=== PATIENT | female | born 1980 | race Caucasian/White ===

== ENCOUNTER 2020-07-24 10:47 | Emergency (ER) | payer MEDICAID, SELFPAY ==
[2020-07-24 10:54] VITALS: BP 125/75; BP 178/90; PULSE 85; PULSE 90; RESP 22; TEMP 36.8; O2SAT 98; BMI 65.0
--- NOTE | 2020-07-24 11:13 | ED.GENADULT ---
HPI - General Adult General Chief complaint: General Medical Stated complaint: ABD PAIN,HEADACHE Time Seen by Provider: 07/24/20 11:13 Source: patient and EMS Mode of arrival: EMS Limitations: no limitations History of Present Illness HPI narrative: patient c/o diarrhea and nausea since last night, no antibiotics, no food exposures, no sick contacts, c/o cramping constant aching pain as well, denies flatulence this AM Onset (ago): day(s) (last night) Location: abdomen Radiation: non-radiation Severity: moderate Quality: aching Pain Consistency: constant Relieving factors: none Exacerbating factors: none Associated symptoms: nausea/vomiting and other (diarrhea) Treatments prior to arrival: none Related Data Previous Rx's Medication Instructions Recorded dicyclomine 20 mg PO TID PRN #20 tab 07/24/20 ondansetron 4 mg PO Q8H PRN #20 tab 07/24/20 Allergies Allergy/AdvReac Type Severity Reaction Status Date / Time Penicillins [PENICILLINS] Allergy Severe HIVES Verified 07/24/20 11:25 aspirin [ASA] Allergy Intermediate HIVES Verified 07/24/20 11:25 azithromycin [AZITHROMYCIN] Allergy Intermediate ITCHING Verified 07/24/20 11:25 erythromycin base Allergy Intermediate HIVES Verified 07/24/20 11:25 [Erythromycin Base] lamotrigine [From Lamictal] Allergy Intermediate ITCHING Verified 07/24/20 11:25 levofloxacin [From LEVAQUIN] Allergy Intermediate HIVES Verified 07/24/20 11:25 oxycodone [From Percocet] Allergy Intermediate HIVES Verified 07/24/20 11:25 penicillin V Allergy Unknown Itching Verified 07/24/20 11:25 soap [SOAP] Allergy Unknown UNKNOWN Verified 07/24/20 11:25 RXN TO IVORY AND JERGEN'S SOAP Lamictal Allergy Unknown hives Uncoded 06/15/12 00:00 Oxycodone (5MG) Allergy Unknown Itching Uncoded 07/24/20 11:25 Penicillin Allergy Unknown hives Uncoded 06/15/12 00:00 Lactose AdvReac Unknown intolerance Uncoded 06/15/12 00:00 Review of Systems Review of Systems: Constitutional : No Weight loss, No Fever, No Chills ENT/Mouth : No sore throat, No Rhinorrhea Eyes: No Swelling, No Redness Cardiovascular : No Chest Pain, No SOB, NoEdema Respiratory : No Cough, No Sputum, No Wheezing Gastrointestinal : Positive Nausea, no Vomiting, positive Diarrhea, positive abdominal Pain, No Hematochezia, No Melena Genitourinary : No Dysuria, No Urinary Frequency, No Hematuria, No Urgency Musculoskeletal : No joint pain, No Myalgias, No Joint Swelling Skin : No Skin Lesions, No rash Neuro : No Weakness, No Numbness, No Dizziness, No Headache Psych : No Anxiety/Panic, No Depression Heme/Lymph: No Bruising, No Lymphadenopathy Endocrine : No Polyuria, No Polydipsia All other systems reviewed and are negative. [facility] Past Medical History Medical History (Updated 07/24/20 @ 14:32 by Radha Pak DO) Anxiety Asthma Bipolar 1 disorder Hernia Hypertension Manic depression Schizophrenia Social History Social History Alcohol intake: current Alcohol intake frequency: a few times a month Smoking Status: Current every day smoker Use of substances other than those prescribed or required for medical reasons: Yes Substance Use Type: Marijuana Advance Directives: No Advance Directives Information Provided: Yes Physical Exam Vital Signs and I&O and Narrative: Vital Signs and I&O: Vital Signs Temp 98.3 F 07/24/20 10:54 Pulse 85 07/24/20 10:54 Resp 22 H 07/24/20 10:54 BP 125/75 07/24/20 10:54 Pulse Ox 98 07/24/20 10:54 Intake & Output 07/23/20 07/24/20 07/24/20 18:59 06:59 18:59 Weight 161.297 kg Body Mass Index 65.0 Appearance: Alert. Oriented X3. No acute distress. Can I have pain medicine through the IV? Eyes: Pupils equal, round and reactive to light. ENT: Pharynx normal. Neck: Normal inspection. Neck supple. CVS: Normal heart rate and rhythm. Pulses normal. Respiratory: No respiratory distress. Breath sounds normal. Abdomen: Soft and obese, periumbilical ttp Skin: Skin warm and dry. Normal skin color. Normal skin turgor. Extremities: No lower extremity edema. No lower extremity edema. Neuro: Oriented X 3. No motor deficit. No sensory deficit. 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 She is upset she is not receiving IV narcotics, this is an inappropriate response to this, she is also demanding IV pain medications for her LLE that has no fracture of the bone - she is very demanding and attempting to bully the staff and myself, she is aware of the plan for UA, CT scan - normal pulse and BP do not support her reported degree of pain at this time Reevaluation(s) Reevaluation #1: no diarrhea while in ED< no acute findings, stable for DC Medical Decision Making MDM Narrative Medical decision making narrative: 39 yo female with multiple medical problems s/p hernia repair - here with diarrhea and pain, will need labs, CT scan for obstruction/infection, she is asking for pain medications through the IV does have a history of drug seeking tendencies while in the department, will give cleopatrafran and kody, dispo per results and findings Lab Data Result diagrams: 07/24/20 11:21 07/24/20 11:21 Labs: Lab Results 07/24/20 07/24/20 07/24/20 Range/Units 11:21 11:21 11:21 WBC 9.9 (4.8-10.8) X10*3/uL RBC 4.29 (4.20-5.50) X10*6/uL Hgb 11.9 L (12.0-16.0) g/dl Hct 38.0 (37-47) % MCV 88.6 (80-98) fL MCH 27.7 (27.0-33.0) pg MCHC 31.3 (31.0-35.0) g/dl RDW 16.4 H (11.0-16.0) % Plt Count 265 (160-400) X10*3/uL MPV 8.8 L (9.4-12.3) fL Immature Gran % (Auto) 0.5 H (0.0-0.4) % Neut % (Auto) 61.2 (45-73) % Lymph % (Auto) 29.0 (20-40) % [place] % (Auto) 6.4 (2-11) % Eos % (Auto) 2.4 (0-4) % Baso % (Auto) 0.5 (0-2) % Neut # (Auto) 6.1 (2.0-8.3) X10*3/uL Lymph # (Auto) 2.9 (1.2-4.9) X10*3/uL [place] # (Auto) 0.6 (0.1-1.2) X10*3/uL Eos # (Auto) 0.2 (0.0-0.4) X10*3/uL Baso # (Auto) 0.1 (0.0-0.2) X10*3/uL Abs Immat Gran (auto) 0.05 H (0.00-0.03) X10*3/uL Absolute Nucleated RBC 0.000 (0.0-0.012) X10*3/uL Nucleated RBC % (auto) 0.0 (0.0-0.2) /100WBC Hold Blue Top SEE NOTE Sodium 140 (135-145) mmol/L Potassium 3.8 (3.3-5.1) mmol/l Chloride 112 H (96-108) mmol/L Carbon Dioxide 20 L (22-29) mmol/L Anion Gap 12 (12-20) BUN 20 H (9-16) mg/dL Creatinine 0.77 (0.5-1.4) mg/dL Estim Creat Clear Calc 149.3 Estimated GFR > 60 Random Glucose 92 (60-115) mg/dL Calcium 8.3 L (8.4-10.2) mg/dL Magnesium 1.9 (1.6-2.6) mg/dL Total Bilirubin 0.2 (0.0-1.0) mg/dL Direct Bilirubin < 0.2 (0.0-0.5) mg/dL AST 10 (5-31) U/L ALT 16 (0-31) U/L Alkaline Phosphatase 64 (39-117) U/L Total Protein 6.9 (6.5-8.0) g/dL Albumin 3.6 (3.5-5.0) g/dL Lipase 49 (8-78) U/L Urine Color Urine Appearance Urine pH (5.0-8.0) Ur Specific [place] (1.005-1.025) Urine Protein (NEG-TRACE) MG/DL Urine Glucose (UA) (NEG) MG/DL Urine Ketones (NEG) MG/DL Urine Blood (NEG) Urine Nitrite (NEG) Ur Leukocyte Esterase (NEG) Urine RBC (0) /HPF Urine WBC (0-4) /HPF Ur Squamous Epith Cells /LPF Urine Bacteria /LPF Urine Mucus /LPF Urine Test (NEGATIVE) 07/24/20 Range/Units 12:31 WBC (4.8-10.8) X10*3/uL RBC (4.20-5.50) X10*6/uL Hgb (12.0-16.0) g/dl Hct (37-47) % MCV (80-98) fL MCH (27.0-33.0) pg MCHC (31.0-35.0) g/dl RDW (11.0-16.0) % Plt Count (160-400) X10*3/uL MPV (9.4-12.3) fL Immature Gran % (Auto) (0.0-0.4) % Neut % (Auto) (45-73) % Lymph % (Auto) (20-40) % [place] % (Auto) (2-11) % Eos % (Auto) (0-4) % Baso % (Auto) (0-2) % Neut # (Auto) (2.0-8.3) X10*3/uL Lymph # (Auto) (1.2-4.9) X10*3/uL [place] # (Auto) (0.1-1.2) X10*3/uL Eos # (Auto) (0.0-0.4) X10*3/uL Baso # (Auto) (0.0-0.2) X10*3/uL Abs Immat Gran (auto) (0.00-0.03) X10*3/uL Absolute Nucleated RBC (0.0-0.012) X10*3/uL Nucleated RBC % (auto) (0.0-0.2) /100WBC Hold Blue Top Sodium (135-145) mmol/L Potassium (3.3-5.1) mmol/l Chloride (96-108) mmol/L Carbon Dioxide (22-29) mmol/L Anion Gap (12-20) BUN (9-16) mg/dL Creatinine (0.5-1.4) mg/dL Estim Creat Clear Calc Estimated GFR Random Glucose (60-115) mg/dL Calcium (8.4-10.2) mg/dL Magnesium (1.6-2.6) mg/dL Total Bilirubin (0.0-1.0) mg/dL Direct Bilirubin (0.0-0.5) mg/dL AST (5-31) U/L ALT (0-31) U/L Alkaline Phosphatase (39-117) U/L Total Protein (6.5-8.0) g/dL Albumin (3.5-5.0) g/dL Lipase (8-78) U/L Urine Color YELLOW Urine Appearance HAZY Urine pH 6.0 (5.0-8.0) Ur Specific [place] 1.025 (1.005-1.025) Urine Protein NEG (NEG-TRACE) MG/DL Urine Glucose (UA) NEG (NEG) MG/DL Urine Ketones NEG (NEG) MG/DL Urine Blood 3+ H (NEG) Urine Nitrite NEG (NEG) Ur Leukocyte Esterase NEG (NEG) Urine RBC 1-4 (0) /HPF Urine WBC 0-2 (0-4) /HPF Ur Squamous Epith Cells 2+ /LPF Urine Bacteria TRACE /LPF Urine Mucus TRACE /LPF Urine Test NEGATIVE (NEGATIVE) Discharge Plan Discharge Clinical Impression: Abdominal pain Qualifiers: Abdominal location: generalized Qualified Code(s): R10.84 - Generalized abdominal pain Patient Disposition: Home, Self-Care Instructions: Abdominal Pain (ED) Additional Instructions: your blood work and CT scan showed no acute findings, your liver and spleen were slightly enlarged but blood work was stable, please follow up with your doctor Prescriptions: New ondansetron 4 mg tablet,disintegrating 4 mg PO Q8H PRN (Reason: nausea and vomiting) Qty: 20 RF: 0 dicyclomine 20 mg tablet 20 mg PO TID PRN (Reason: cramping) Qty: 20 RF: 0 Referrals: Physician,Unknown [Primary Care Provider] - 2 days (follow up with your family doctor if not better in 2 days)
--- NOTE | 2020-07-24 11:14 | CT_ITS ---
EXAMINATION: CT ABDOMEN AND PELVIS WITHOUT CONTRAST CLINICAL INFORMATION: Pain. COMPARISON: 03/13/2020 TECHNIQUE: Multidetector volumetric imaging was performed from the superior aspect of the liver through the pubic symphysis. Sagittal and coronal reformatted images were obtained on the technologist's workstation. This CT examination was performed using dose optimization techniques as appropriate, variously including the following: *Automated exposure control *Adjustment of mA and/or kV according to patient size (this includes techniques or standardized protocols for targeted exams where dose is matched to indication/reason for exam; i.e. extremities or head) *Use of iterative reconstruction technique DLP: 1623 mGy-cm. FINDINGS: LUNG BASES: The visualized lung bases are unremarkable. LIVER, GALLBLADDER, AND BILIARY TREE: Liver is enlarged spanning 22.7 cm craniocaudal. No focal hepatic lesion or biliary ductal dilatation is present. The gallbladder is unremarkable with no evidence of radiopaque gallstones, gallbladder wall thickening, or obvious pericholecystic inflammatory changes. PANCREAS: Unremarkable. SPLEEN: Spleen measures 16 cm craniocaudal. No focal lesions. ADRENAL GLANDS: Unremarkable. KIDNEYS AND URETERS: The kidneys are normal in size, shape, and attenuation. No hydronephrosis, hydroureter, or calculi seen. No perinephric stranding. BLADDER: Underdistended, limiting evaluation, without gross abnormality. GASTROINTESTINAL TRACT: Colonic diverticulosis without evidence of diverticulitis. The stomach is nondistended. No dilated small bowel loops are seen. No colonic wall thickening or pericolonic inflammatory changes. Appendix is normal. No ascites. No free air. ABDOMINAL WALL: Prior ventral abdominal wall hernia repair. Stranding in the anterior subcutaneous/soft tissues, probably related to postsurgical changes along the inferior aspect of the anterior abdominal wall in the area of previously noted hernia. There is mild subcutaneous edema in the abdominal wall. LYMPH NODES: No pathologically enlarged lymph nodes are seen. VASCULAR: Normal caliber aorta. PELVIC VISCERA: Anteverted uterus with IUD. No adnexal mass is seen. OSSEOUS STRUCTURES: No acute or suspicious osseous abnormality. IMPRESSION: 1. No acute findings identified in the abdomen or pelvis. 2. Hepatomegaly measuring 22.7 cm craniocaudal. Splenomegaly measuring 16 cm craniocaudal. 3. Colonic diverticulosis without diverticulitis.
[2020-07-24] MEDS: Dicyclomine HCl 10 MG CAPSULE PO (11:25)
--- NOTE | 2020-07-24 11:26 | PC.NURSE ---
PT MEDICATED PER ORDERS. REQUESTING IV TO BE PLACED AND GIVEN MORPHINE. EXPLAINED TO PT MD ORDERED PO MEDS AND SHOULD ATTEMPT TO SEE IF RELIEVES PAIN FIRST. PT AGREEABLE AND TOOK PO MEDS BUT STATING THEY WONT WORK .
[2020-07-24 11:27] LABS: MANUAL DIFF FLAG NO
[2020-07-24 11:32] LABS: Basophils Absolute Auto 0.1 X10*3/uL (0.0-0.2); Basophils Percent Auto 0.5 % (0-2); Eosinophils Absolute Auto 0.2 X10*3/uL (0.0-0.4); Eosinophils Percent Auto 2.4 % (0-4); Hemoglobin 11.9 g/dl (12.0-16.0); Imm Gran Abs Auto 0.05 X10*3/uL (0.00-0.03); Imm Gran Pct Auto 0.5 % (0.0-0.4); Lymphocytes Absolute Auto 2.9 X10*3/uL (1.2-4.9); Mean Corpuscular HGB Conc 31.3 g/dl (31.0-35.0); Mean Corpuscular Hemoglobin 27.7 pg (27.0-33.0); Mean Corpuscular Volume 88.6 fL (80-98); Mean Platelet Volume 8.8 fL (9.4-12.3); Monocytes Absolute Auto 0.6 X10*3/uL (0.1-1.2); Monocytes Percent Auto 6.4 % (2-11); Neutrophils Absolute Auto 6.1 X10*3/uL (2.0-8.3); Neutrophils Percent Auto 61.2 % (45-73); Platelet Count 265 X10*3/uL (160-400); Red Blood Count 4.29 X10*6/uL (4.20-5.50); Red Cell Distribution Width 16.4 % (11.0-16.0); White Blood Count 9.9 X10*3/uL (4.8-10.8)
[2020-07-24 11:58] LABS: Alanine Aminotransferase 16 U/L (0-31); Albumin Level 3.6 g/dL (3.5-5.0); Alkaline Phosphatase 64 U/L (39-117); Anion Gap 12 (12-20); Aspartate Amino Transferase 10 U/L (5-31); Bilirubin Direct < 0.2 mg/dL (0.0-0.5); Bilirubin Total 0.2 mg/dL (0.0-1.0); Blood Urea Nitrogen 20 mg/dL (9-16); Calcium 8.3 mg/dL (8.4-10.2); Carbon Dioxide 20 mmol/L (22-29); Chloride 112 mmol/L (96-108); Creatinine Clr Calc Pharmacy 149.3; Estimated Glomerular Filt Rate > 60; Glucose Random 92 mg/dL (60-115); Lipase 49 U/L (8-78); Magnesium 1.9 mg/dL (1.6-2.6); Potassium 3.8 mmol/l (3.3-5.1); Sodium 140 mmol/L (135-145); Total Protein 6.9 g/dL (6.5-8.0)
[2020-07-24 12:51] LABS: Glucose Urine UA NEG (NEG); Leukocyte Esterase Urine NEG (NEG); Nitrite Urine NEG (NEG); Specific Gravity - Urine 1.025 (1.005-1.025); Urine Blood 3+ (NEG); Urine Ketones NEG (NEG); Urine Protein NEG (NEG-TRACE)
[2020-07-24 12:52] LABS: Appearance Urine HAZY; Color Urine YELLOW
[2020-07-24 12:53] LABS: UPreg QC Valid YES; Urine Pregnancy NEGATIVE (NEGATIVE)
[2020-07-24 12:58] LABS: Bacteria Urine TRACE /LPF; Mucus Urine TRACE /LPF; Squamous Epithelial Cell Urine 2+ /LPF; WBC Urine 0-2 /HPF (0-4)
[2020-07-24 14:39] VITALS: BP 137/105; PULSE 78; RESP 18; TEMP 37.2; O2SAT 97
== END 2020-07-24 14:42 | disposition home or self-care (01) ==
PROVIDERS: Emergency Provider Emergency Medicine
DX: R10.84 Generalized abdominal pain (principal); R19.7 Diarrhea, unspecified; R11.0 Nausea; F17.200 Nicotine dependence, unspecified, uncomplicated; Z71.6 Tobacco abuse counseling
CPT/HCPCS: 36415; 74176; 80048; 80076; 81001; 81025; 83690; 83735; 85025; 99284

== ENCOUNTER 2020-07-31 15:24 | Emergency (ER) | payer MEDICAID, SELFPAY ==
[2020-07-31 16:28] VITALS: BP 144/95; PULSE 89; RESP 20; TEMP 37.8; BMI 61.2
[2020-07-31 17:12] LABS: Glucose Urine UA NEG (NEG); Leukocyte Esterase Urine NEG (NEG); Nitrite Urine NEG (NEG); Specific Gravity - Urine 1.025 (1.005-1.025); Urine Blood TRACE (NEG); Urine Ketones NEG (NEG); Urine Protein NEG (NEG-TRACE)
--- NOTE | 2020-07-31 17:28 | PC.NURSE ---
PT LEAVES THE WR X2 TO GO OUTSIDE TO SMOKE
[2020-07-31 17:33] LABS: Appearance Urine CLEAR; Color Urine YELLOW
[2020-07-31 17:44] LABS: RBC Urine 0-2 /HPF (0); Squamous Epithelial Cell Urine 4+ /LPF; WBC Urine 0-2 /HPF (0-4)
--- NOTE | 2020-07-31 18:29 | XR_ITS ---
EXAMINATION: XR CHEST CLINICAL INFORMATION: Cough. COMPARISON: Chest x-ray 03/13/2020 TECHNIQUE: 2 views of the chest were obtained. FINDINGS: Lungs are clear. No pulmonary vascular congestion. There is no pleural effusion. The heart size is normal. The cardiac and mediastinal contours are normal. There are multilevel degenerative changes of dorsal spine. There is inferior subluxation of humeral head relative to the glenoid of both shoulders. This is unchanged since prior chest x-ray. IMPRESSION: Unremarkable examination.
[2020-07-31 18:42] VITALS: RESP 18
[2020-07-31 19:06] LABS: MANUAL DIFF FLAG NO
[2020-07-31 19:07] LABS: Basophils Absolute Auto 0.1 X10*3/uL (0.0-0.2); Basophils Percent Auto 0.6 % (0-2); Eosinophils Absolute Auto 0.2 X10*3/uL (0.0-0.4); Hematocrit 41.4 % (37-47); Hemoglobin 13.2 g/dl (12.0-16.0); Imm Gran Abs Auto 0.02 X10*3/uL (0.00-0.03); Imm Gran Pct Auto 0.2 % (0.0-0.4); Lymphocytes Absolute Auto 3.4 X10*3/uL (1.2-4.9); Mean Corpuscular HGB Conc 31.9 g/dl (31.0-35.0); Mean Corpuscular Hemoglobin 27.7 pg (27.0-33.0); Mean Platelet Volume 8.3 fL (9.4-12.3); Monocytes Absolute Auto 0.7 X10*3/uL (0.1-1.2); Monocytes Percent Auto 7.7 % (2-11); Neutrophils Percent Auto 53.5 % (45-73); Platelet Count 247 X10*3/uL (160-400); Red Blood Count 4.76 X10*6/uL (4.20-5.50); Red Cell Distribution Width 16.5 % (11.0-16.0); White Blood Count 9.4 X10*3/uL (4.8-10.8)
[2020-07-31 19:34] LABS: Alanine Aminotransferase 15 U/L (0-31); Alkaline Phosphatase 76 U/L (39-117); Anion Gap 13 (12-20); Aspartate Amino Transferase 13 U/L (5-31); Bilirubin Total 0.4 mg/dL (0.0-1.0); Blood Urea Nitrogen 16 mg/dL (9-16); Calcium 8.6 mg/dL (8.4-10.2); Carbon Dioxide 20 mmol/L (22-29); Chloride 107 mmol/L (96-108); Creatinine Clr Calc Pharmacy 151.3; Estimated Glomerular Filt Rate > 60; Glucose Random 118 mg/dL (60-115); Potassium 3.8 mmol/l (3.3-5.1); Sodium 136 mmol/L (135-145); Total Protein 7.6 g/dL (6.5-8.0)
[2020-07-31] MEDS: Acetaminophen 325 MG TABLET 975 MG PO (19:37)
--- NOTE | 2020-07-31 20:18 | ED.GENADULT ---
HPI - General Adult General Chief complaint: General Medical Stated complaint: SHORTNESS OF BREATH Time Seen by Provider: 07/31/20 18:29 Source: patient Mode of arrival: ambulatory Limitations: no limitations History of Present Illness HPI narrative: Runny nose/cough/congestion for the past 2 days. Cousin with similar symptoms here for COVID testing which was negative yesterday. Onset (ago): day(s) (Two days) Severity: moderate Related Data Previous Rx's Medication Instructions Recorded dicyclomine 20 mg PO TID PRN #20 tab 07/24/20 ondansetron 4 mg PO Q8H PRN #20 tab 07/24/20 azithromycin [Zithromax Z-Johnie] 250 mg PO DAILY 5 Days #6 tab 07/31/20 prednisone 40 mg PO DAILY #10 tab 07/31/20 Allergies Allergy/AdvReac Type Severity Reaction Status Date / Time Penicillins [PENICILLINS] Allergy Severe HIVES Verified 07/24/20 11:25 aspirin [ASA] Allergy Intermediate HIVES Verified 07/24/20 11:25 azithromycin [AZITHROMYCIN] Allergy Intermediate ITCHING Verified 07/24/20 11:25 erythromycin base Allergy Intermediate HIVES Verified 07/24/20 11:25 [Erythromycin Base] lamotrigine [From Lamictal] Allergy Intermediate ITCHING Verified 07/24/20 11:25 levofloxacin [From LEVAQUIN] Allergy Intermediate HIVES Verified 07/24/20 11:25 oxycodone [From Percocet] Allergy Intermediate HIVES Verified 07/24/20 11:25 penicillin V Allergy Unknown Itching Verified 07/24/20 11:25 soap [SOAP] Allergy Unknown UNKNOWN Verified 07/24/20 11:25 RXN TO IVORY AND JERGEN'S SOAP Lamictal Allergy Unknown hives Uncoded 06/15/12 00:00 Oxycodone (5MG) Allergy Unknown Itching Uncoded 07/24/20 11:25 Penicillin Allergy Unknown hives Uncoded 06/15/12 00:00 Lactose AdvReac Unknown intolerance Uncoded 06/15/12 00:00 Review of Systems Review of Systems: Constitutional: No Weight loss, No Fever, No Chills, No Night Sweats, No Fatigue, No Malaise ENT/Mouth: No Hearing loss, No Ear Pain, No Nasal Congestion, No Sinus Pain, No Hoarseness, No sore throat, No Rhinorrhea, No Swallowing Difficulty Eyes: No Eye Pain, No Swelling, No Redness, No Foreign Body, No Discharge, No Vision Changes Cardiovascular: No Chest Pain, No SOB, No Dyspnea on Exertion, No Orthopnea, No Edema, No Palpitations Respiratory: + Cough, + Sputum, No Wheezing, No Smoke Exposure, No Dyspnea Gastrointestinal: No Nausea, No Vomiting, No Diarrhea, No Constipation, No abdominal Pain, No Hematochezia, No Melena Genitourinary: no irregular bleeding, No Dysuria, No Urinary Frequency, No Hematuria, No Urinary Incontinence, No Urgency, No Flank Pain, No Urinary Flow Changes, No Hesitancy Musculoskeletal: No joint pain, No Myalgias, No Joint Swelling Skin: No Skin Lesions, No rash Neuro: No Weakness, No Numbness, No Paresthesias, No Loss of Consciousness, No Dizziness, No Headache Psych: No Anxiety/Panic, No Depression, No SI/HI/AH/VH, No Social Issues, Heme/Lymph: No Bruising, No Bleeding,No Lymphadenopathy Endocrine: No Polyuria, No Polydipsia, No Temperature Intolerance [facility] Past Medical History Attestation statement: The following information was validated with the patient. Medical History (Updated 07/31/20 @ 20:28 by Temo Patel NP) Anxiety Asthma Bipolar 1 disorder Hernia Hypertension Manic depression Schizophrenia Social History Social History Alcohol intake: never Smoking Status: Current every day smoker Smoked in Last 30 Days: No Use of substances other than those prescribed or required for medical reasons: No Substance Use Type: Marijuana Advance Directives: No Advance Directives Information Provided: No Physical Exam Vital Signs: Vital Signs: Vital Signs Temp Pulse Resp BP 07/31/20 18:42 18 07/31/20 16:28 100.0 F 89 20 144/95 H Body Mass Index 61.2 Const: General: cooperative and healthy appearing; No acute distress or intoxicated appearing Nutritional Appearance: average body habitus Orientation/consciousness: patient oriented x3 HENMT: Head: Yes normal to inspection Ears: hearing grossly normal bilaterally Eyes: General: appearance normal, both eyes and all related structures Visual Norris: normal visual norris by confrontation Neck: Neck: Yes normal visual inspection, No positive Brudzinski's sign and No tender Thyroid: Thyroid normal Chest: Chest palpation & inspection: normal inspection of the chest Resp: Other: Dry bronchial cough Effort & Inspection: normal respiratory effort Cardio: Jugular venous distension: no JVD GI: Inspection: Yes normal to inspection Percussion: Yes normal to percussion Auscultation: normal bowel sounds : General: Yes no CVA tenderness Back/Spine/Pelvis: Back: no CVA tenderness Skin: General skin exam: no rashes or lesions noted Neuro: General: patient oriented x3 Extrem: General: Yes normal to inspection Medical Decision Making Lab Data Result diagrams: 07/31/20 19:07/31/20 19:01 Labs: Lab Results 07/31/20 07/31/20 07/31/20 Range/Units 17:02 19: 19:01 WBC 9.4 (4.8-10.8) X10*3/uL RBC 4.76 (4.20-5.50) X10*6/uL Hgb 13.2 (12.0-16.0) g/dl Hct 41.4 (37-47) % MCV 87.0 (80-98) fL MCH 27.7 (27.0-33.0) pg MCHC 31.9 (31.0-35.0) g/dl RDW 16.5 H (11.0-16.0) % Plt Count 247 (160-400) X10*3/uL MPV 8.3 L (9.4-12.3) fL Immature Gran % (Auto) 0.2 (0.0-0.4) % Neut % (Auto) 53.5 (45-73) % Lymph % (Auto) 36.0 (20-40) % [place] % (Auto) 7.7 (2-11) % Eos % (Auto) 2.0 (0-4) % Baso % (Auto) 0.6 (0-2) % Lymph # (Auto) 3.4 (1.2-4.9) X10*3/uL [place] # (Auto) 0.7 (0.1-1.2) X10*3/uL Eos # (Auto) 0.2 (0.0-0.4) X10*3/uL Baso # (Auto) 0.1 (0.0-0.2) X10*3/uL Abs Immat Gran (auto) 0.02 (0.00-0.03) X10*3/uL Absolute Neuts (auto) 5.0 (2.0-8.3) X10*3/uL Absolute Nucleated RBC 0.000 (0.0-0.012) X10*3/uL Nucleated RBC % (auto) 0.0 (0.0-0.2) /100WBC Sodium 136 (135-145) mmol/L Potassium 3.8 (3.3-5.1) mmol/l Chloride 107 (96-108) mmol/L Carbon Dioxide 20 L (22-29) mmol/L Anion Gap 13 (12-20) BUN 16 (9-16) mg/dL Creatinine 0.73 (0.5-1.4) mg/dL Estim Creat Clear Calc 151.3 Estimated GFR > 60 Random Glucose 118 H (60-115) mg/dL Calcium 8.6 (8.4-10.2) mg/dL Total Bilirubin 0.4 (0.0-1.0) mg/dL AST 13 (5-31) U/L ALT 15 (0-31) U/L Alkaline Phosphatase 76 (39-117) U/L Total Protein 7.6 (6.5-8.0) g/dL Albumin 4.0 (3.5-5.0) g/dL Urine Color YELLOW Urine Appearance CLEAR Urine pH 6.0 (5.0-8.0) Ur Specific [place] 1.025 (1.005-1.025) Urine Protein NEG (NEG-TRACE) MG/DL Urine Glucose (UA) NEG (NEG) MG/DL Urine Ketones NEG (NEG) MG/DL Urine Blood TRACE (NEG) Urine Nitrite NEG (NEG) Ur Leukocyte Esterase NEG (NEG) Urine RBC 0-2 (0) /HPF Urine WBC 0-2 (0-4) /HPF Ur Squamous Epith Cells 4+ /LPF Urine Bacteria NONE /LPF Discharge Plan Discharge Clinical Impression: Bronchitis Patient Disposition: Home, Self-Care Instructions: Acute Bronchitis (ED) Prescriptions: New prednisone 20 mg tablet 40 mg PO DAILY Qty: 10 RF: 0 azithromycin [Zithromax Z-Johnie] 250 mg tablet 250 mg PO DAILY 5 Days Qty: 6 RF: 0 No Action ondansetron 4 mg tablet,disintegrating 4 mg PO Q8H PRN (Reason: nausea and vomiting) Qty: 20 RF: 0 dicyclomine 20 mg tablet 20 mg PO TID PRN (Reason: cramping) Qty: 20 RF: 0
== END 2020-07-31 20:33 | disposition home or self-care (01) ==
PROVIDERS: Nurse Practitioner Primary Care; Emergency Provider Internal Medicine
DX: J20.9 Acute bronchitis, unspecified (principal); Z20.828 Contact with and (suspected) exposure to other viral communicable diseases; J45.909 Unspecified asthma, uncomplicated; F17.200 Nicotine dependence, unspecified, uncomplicated; F12.90 Cannabis use, unspecified, uncomplicated
CPT/HCPCS: 36415; 71046; 80053; 81001; 85025; 87635; 99283; 99284

== ENCOUNTER 2020-08-29 08:21 | Emergency (ER) | payer MEDICAID, SELFPAY ==
--- NOTE | 2020-08-29 08:25 | XR_ITS ---
EXAMINATION: XR CHEST CLINICAL INFORMATION: Cough COMPARISON: Previous chest x-ray 07/31/2020 TECHNIQUE: Frontal view of the chest was obtained. FINDINGS: The cardiac and mediastinal contours are normal. The lungs are clear. There is no pleural effusion or pneumothorax. There may be soft tissue calcification adjacent to both greater on to the humeral tuberosities. Bony structures are otherwise unremarkable. XR/XR chest 1V IMPRESSION: No evidence for acute disease in the chest.
--- NOTE | 2020-08-29 08:25 | ED.ASTHMA ---
HPI - Asthma General Chief Complaint: Upper Respiratory Symptoms Stated Complaint: SOB,COUGH W/PAIN Time Seen by Provider: 08/29/20 08:24 Source: patient and EMS Mode of arrival: EMS Limitations: no limitations History of Present Illness MD complaint: shortness of breath and wheezing Onset (ago): day(s) (2) Severity: moderate Context: recent URI Associated symptoms: productive cough Asthma History: childhood onset and adult onset Treatments Prior to Arrival: inhaled bronchodilator and other Related Data Previous Rx's Medication Instructions Recorded dicyclomine 20 mg PO TID PRN #20 tab 07/24/20 ondansetron 4 mg PO Q8H PRN #20 tab 07/24/20 azithromycin [Zithromax Z-Johnie] 250 mg PO DAILY 5 Days #6 tab 07/31/20 prednisone 40 mg PO DAILY #10 tab 07/31/20 doxycycline hyclate 100 mg PO DAILY 7 Days #7 cap 08/29/20 prednisone 40 mg PO DAILY 5 Days #10 tab 08/29/20 Allergies Allergy/AdvReac Type Severity Reaction Status Date / Time Penicillins [PENICILLINS] Allergy Severe HIVES Verified 07/24/20 11:25 aspirin [ASA] Allergy Intermediate HIVES Verified 07/24/20 11:25 azithromycin [AZITHROMYCIN] Allergy Intermediate ITCHING Verified 07/24/20 11:25 erythromycin base Allergy Intermediate HIVES Verified 07/24/20 11:25 [Erythromycin Base] lamotrigine [From Lamictal] Allergy Intermediate ITCHING Verified 07/24/20 11:25 levofloxacin [From LEVAQUIN] Allergy Intermediate HIVES Verified 07/24/20 11:25 oxycodone [From Percocet] Allergy Intermediate HIVES Verified 07/24/20 11:25 penicillin V Allergy Unknown Itching Verified 07/24/20 11:25 soap [SOAP] Allergy Unknown UNKNOWN Verified 07/24/20 11:25 RXN TO IVORY AND JERGEN'S SOAP Lamictal Allergy Unknown hives Uncoded 06/15/12 00:00 Oxycodone (5MG) Allergy Unknown Itching Uncoded 07/24/20 11:25 Penicillin Allergy Unknown hives Uncoded 06/15/12 00:00 Lactose AdvReac Unknown intolerance Uncoded 06/15/12 00:00 Review of Systems Review of Systems: Constitutional : No Fever, No Chills ENT/Mouth : No sore throat, No Rhinorrhea, No Swallowing Difficulty Eyes: No Eye Pain, No Swelling, No Redness Cardiovascular : No Chest Pain, positive SOB, No Orthopnea, no Edema Respiratory : No Cough, No Sputum, No Wheezing, positive dyspnea Gastrointestinal : No Nausea, No Vomiting, No Diarrhea, No abdominal Pain, No Hematochezia, No Melena Genitourinary : No Dysuria, No Urinary Frequency, No Hematuria Musculoskeletal : No joint pain, No Myalgias Skin : No Skin Lesions, No rash Neuro : No Weakness, No Numbness, No Dizziness, No Headache Psych : No Anxiety/Panic, No Depression Heme/Lymph: No Bruising, No Lymphadenopathy Endocrine : No Polyuria, No Polydipsia All other systems reviewed and are negative PMFSH Past Medical History Attestation statement: The following information was validated with the patient. Medical History Anxiety Asthma Bipolar 1 disorder Degenerative arthritis of knee, bilateral Hernia Hypertension Manic depression Schizophrenia Social History Social History Alcohol intake: never Smoking Status: Current every day smoker Substance Use Type: Marijuana Advance Directives: No Advance Directives Information Provided: No Physical Exam Vital Signs: Vital Signs: Last Vital Signs Temp 99.2 F 08/29/20 08:26 Pulse 84 08/29/20 08:26 Resp 18 08/29/20 08:26 BP 169/79 H 08/29/20 08:26 Pulse Ox 98 08/29/20 08:26 Body Mass Index 54.8 Appearance: Alert. Oriented X3. No acute distress. Eyes: Pupils equal, round and reactive to light. ENT: Pharynx normal. Neck: Normal inspection. Neck supple. CVS: Normal heart rate and rhythm. Pulses normal. Respiratory: No respiratory distress. Breath sounds faint end exp wheezes Abdomen: Soft and nontender. Skin: Skin warm and dry. Normal skin color. Normal skin turgor. Extremities: No lower extremity edema. No calf ttp Neuro: Oriented X 3. No motor deficit. No sensory deficit. Course Course Course Narrative: negative CXR, no hypoxia, stable for DC MDM - Asthma MDM Narrative Medical decision making narrative: 39 yo female multiple medical problems here with wheezing known history of bronchitis, just had negative COVID test, will give neb, steroids, CXR and COVID swab, no hypoxia, not toxic Discharge Plan Discharge Clinical Impression: Bronchitis Patient Disposition: Home, Self-Care Instructions: Acute Bronchitis (ED) Additional Instructions: return to ED for any worsening symptoms or concerns you were tested for COVID we will call you with results in 2 to 4 days, wear a mask, socially distance Prescriptions: New prednisone 20 mg tablet 40 mg PO DAILY 5 Days Qty: 10 RF: 0 doxycycline hyclate 100 mg capsule 100 mg PO DAILY 7 Days Qty: 7 RF: 0 No Action ondansetron 4 mg tablet,disintegrating 4 mg PO Q8H PRN (Reason: nausea and vomiting) Qty: 20 RF: 0 dicyclomine 20 mg tablet 20 mg PO TID PRN (Reason: cramping) Qty: 20 RF: 0 prednisone 20 mg tablet 40 mg PO DAILY Qty: 10 RF: 0 azithromycin [Zithromax Z-Johnie] 250 mg tablet 250 mg PO DAILY 5 Days Qty: 6 RF: 0 Referrals: Physician,Unknown [Primary Care Provider] - 2 days (if not better)
[2020-08-29 08:26] VITALS: BP 169/79; PULSE 84; RESP 18; TEMP 37.3; O2SAT 98; BMI 54.8
[2020-08-29] MEDS: predniSONE 20 MG TABLET 60 MG PO (09:00)
--- NOTE | 2020-08-29 09:06 | MHC.MBSS ---
SEEN BY PROVIDER. MEDICATED. SWABBED FOR COVID.
[2020-08-29 10:03] VITALS: O2SAT 98
== END 2020-08-29 10:03 | disposition home or self-care (01) ==
PROVIDERS: Emergency Provider Emergency Medicine
DX: J40 Bronchitis, not specified as acute or chronic (principal); R05 Cough; Z20.828 Contact with and (suspected) exposure to other viral communicable diseases; Z79.899 Other long term (current) drug therapy; F17.200 Nicotine dependence, unspecified, uncomplicated; Z71.6 Tobacco abuse counseling; F12.90 Cannabis use, unspecified, uncomplicated
CPT/HCPCS: 71045; 99283; 99284; U0003

== ENCOUNTER 2020-09-02 18:19 | Emergency (ER) | payer MEDICAID, SELFPAY ==
[2020-09-02 18:27] VITALS: BP 183/95; PULSE 99; RESP 20; TEMP 36.7; O2SAT 97; BMI 68.5
--- NOTE | 2020-09-02 18:36 | ED_ITS ---
HPI - SOB/Dyspnea General Chief Complaint: Dyspnea Stated Complaint: sob x 1 week Time Seen by Provider: 09/02/20 19:34 Source: patient Mode of arrival: EMS Limitations: no limitations History of Present Illness HPI Narrative: 39-year-old female with history of asthma presents with asthma exacerbation, shortness of breath. She states that she here several times in the past month for shortness of breath and was given doxycycline and prednisone which she has been taking up until yesterday. Her visit prior to that she had azithromycin. She states that after the taking both courses of antibiotics that her shortness of breath quickly returned. She is anxious and states that she would like some pain medication For chest pain. MD elicited complaint: shortness of breath, chest pain and asthma attack Pertinent past history: asthma and diabetes Onset (ago): month(s) Context: recent illness Timing: constant Severity: moderate Exacerbating factors: lying flat, exertion, movement, coughing and inspiration Relieving factors: nothing Known history of: asthma and diabetes Associated symptoms: chest pain, cough, wheezing and palpitations Treatment prior to arrival: none Related Data Home oxygen amount: none Previous Rx's Medication Instructions Recorded dicyclomine 20 mg PO TID PRN #20 tab 07/24/20 ondansetron 4 mg PO Q8H PRN #20 tab 07/24/20 azithromycin [Zithromax Z-Johnie] 250 mg PO DAILY 5 Days #6 tab 07/31/20 prednisone 40 mg PO DAILY #10 tab 07/31/20 doxycycline hyclate 100 mg PO DAILY 7 Days #7 cap 08/29/20 prednisone 40 mg PO DAILY 5 Days #10 tab 08/29/20 Allergies Allergy/AdvReac Type Severity Reaction Status Date / Time Penicillins [PENICILLINS] Allergy Severe HIVES Verified 07/24/20 11:25 aspirin [ASA] Allergy Intermediate HIVES Verified 07/24/20 11:25 azithromycin [AZITHROMYCIN] Allergy Intermediate ITCHING Verified 07/24/20 11:25 erythromycin base Allergy Intermediate HIVES Verified 07/24/20 11:25 [Erythromycin Base] lamotrigine [From Lamictal] Allergy Intermediate ITCHING Verified 07/24/20 11:25 levofloxacin [From LEVAQUIN] Allergy Intermediate HIVES Verified 07/24/20 11:25 oxycodone [From Percocet] Allergy Intermediate HIVES Verified 07/24/20 11:25 penicillin V Allergy Unknown Itching Verified 07/24/20 11:25 soap [SOAP] Allergy Unknown UNKNOWN Verified 07/24/20 11:25 RXN TO IVORY AND JERGEN'S SOAP Lamictal Allergy Unknown hives Uncoded 06/15/12 00:00 Oxycodone (5MG) Allergy Unknown Itching Uncoded 07/24/20 11:25 Penicillin Allergy Unknown hives Uncoded 06/15/12 00:00 Lactose AdvReac Unknown intolerance Uncoded 06/15/12 00:00 Review of Systems Review of Systems: Constitutional: No Fever, No Chills ENT/Mouth: No Hoarseness, No sore throat, No Rhinorrhea Eyes: No Redness, No Discharge, No Vision Changes Cardiovascular: positive Chest Pain, positive SOB, positive Dyspnea on Exertion, No Edema Respiratory: positive Cough, No Sputum, positive Wheezing, Gastrointestinal: No Nausea, No Vomiting, No Diarrhea, No abdominal Pain Genitourinary: No Dysuria, No Hematuria Musculoskeletal: No joint pain, No Myalgias Skin: No rash Neuro: No Weakness, No Numbness, No Headache Psych: No anxiety, depression Heme/Lymph: No Bruising, No Bleeding Endocrine: No Polyuria, No Polydipsia Yes all other systems are reviewed and are negative [facility] Past Medical History Attestation statement: The following information was validated with the patient. Medical History Anxiety Asthma Bipolar 1 disorder Degenerative arthritis of knee, bilateral Hernia Hypertension Manic depression Schizophrenia Social History Social History Alcohol intake: never Smoking Status: Current every day smoker Substance Use Type: Marijuana Advance Directives: No Advance Directives Information Provided: No Physical Exam Vital Signs: Vital Signs: Last Vital Signs Temp 98.8 F 09/02/20 20:00 Pulse 88 09/02/20 20:00 Resp 20 09/02/20 20:00 BP 133/78 09/02/20 20:00 Pulse Ox 97 09/02/20 20:00 Body Mass Index 68.5 Appearance: Alert. Oriented X3. Mild distress. Eyes: Pupils equal, round and reactive to light. ENT: Pharynx normal. Neck: Normal inspection. Neck supple. CVS: Normal heart rate and rhythm. Pulses normal. Respiratory: No respiratory distress. wheezing to all lobes. Abdomen: Soft and nontender. Skin: Skin warm and dry. Normal skin color. Normal skin turgor. Extremities: No lower extremity edema. Neuro: No motor deficit. No sensory deficit. Course Course Course Narrative: 39-year-old female with past medical history of asthma, presents with shortness of breath, asthma exacerbation. Was seen on 07/24, 07/31, 08/29 for similar circumstances, was given azithromycin on 07/24, and prednisone and doxycycline on 08/29. She has been taking the prednisone as directed and finished her last dose yesterday. Because of her recurrent shortness of breath recent antibiotic use will order CT scan of the abdomen to rule out pneumonia. Her heart rate is not elevated, she does not take any control highly unlikely to be PE. she is asking for pain medication at this time, her request was denied and she was displeased with this however remained polite. CT scan of chest is negative, white count is elevated however she just finished prednisone yesterday. plan of care to discharge home with instructions to use her currently prescribed asthma medications as directed. Patient verbalized understanding of and agrees to plan of care discharge home. MDM - SOB/Dyspnea Differential Diagnosis Differential diagnosis: Likely acute exacerbation of chronic obstructive airways disease, congestive heart failure, pneumonia and asthma with exacerbation Medical Records Attestation: I reviewed the patient's medical records. Lab Data Attestation: I reviewed the patient's lab results. Result diagrams: 09/02/20 20:04 09/02/20 20:04 Labs: Lab Results 09/02/20 09/02/20 09/02/20 Range/Units 20:04 20:04 20:04 WBC 16.7 H (4.8-10.8) X10*3/uL RBC 4.83 (4.20-5.50) X10*6/uL Hgb 13.4 (12.0-16.0) g/dl Hct 42.2 (37-47) % MCV 87.4 (80-98) fL MCH 27.7 (27.0-33.0) pg MCHC 31.8 (31.0-35.0) g/dl RDW 16.5 H (11.0-16.0) % Plt Count 302 (160-400) X10*3/uL MPV 8.5 L (9.4-12.3) fL Immature Gran % (Auto) 0.8 H (0.0-0.4) % Neut % (Auto) 67.3 (45-73) % Lymph % (Auto) 24.5 (20-40) % [place] % (Auto) 5.4 (2-11) % Eos % (Auto) 1.5 (0-4) % Baso % (Auto) 0.5 (0-2) % Lymph # (Auto) 4.1 (1.2-4.9) X10*3/uL [place] # (Auto) 0.9 (0.1-1.2) X10*3/uL Eos # (Auto) 0.3 (0.0-0.4) X10*3/uL Baso # (Auto) 0.1 (0.0-0.2) X10*3/uL Abs Immat Gran (auto) 0.13 H (0.00-0.03) X10*3/uL Absolute Neuts (auto) 11.3 H (2.0-8.3) X10*3/uL Absolute Nucleated RBC 0.000 (0.0-0.012) X10*3/uL Nucleated RBC % (auto) 0.0 (0.0-0.2) /100WBC Smear Tech's Comments VERIFIED Sodium 140 (135-145) mmol/L Potassium 4.2 (3.3-5.1) mmol/l Chloride 105 (96-108) mmol/L Carbon Dioxide 24 (22-29) mmol/L Anion Gap 15 (12-20) BUN 21 H (9-16) mg/dL Creatinine 0.76 (0.5-1.4) mg/dL Estim Creat Clear Calc 156.9 Estimated GFR > 60 Random Glucose 132 H (60-115) mg/dL Calcium 8.5 (8.4-10.2) mg/dL Magnesium (1.6-2.6) mg/dL Troponin I High Sens < 3.5 (<3.5-17.0) ng/L B-Natriuretic Peptide < 10 (<100) pg/mL 09/02/20 Range/Units 20:04 WBC (4.8-10.8) X10*3/uL RBC (4.20-5.50) X10*6/uL Hgb (12.0-16.0) g/dl Hct (37-47) % MCV (80-98) fL MCH (27.0-33.0) pg MCHC (31.0-35.0) g/dl RDW (11.0-16.0) % Plt Count (160-400) X10*3/uL MPV (9.4-12.3) fL Immature Gran % (Auto) (0.0-0.4) % Neut % (Auto) (45-73) % Lymph % (Auto) (20-40) % [place] % (Auto) (2-11) % Eos % (Auto) (0-4) % Baso % (Auto) (0-2) % Lymph # (Auto) (1.2-4.9) X10*3/uL [place] # (Auto) (0.1-1.2) X10*3/uL Eos # (Auto) (0.0-0.4) X10*3/uL Baso # (Auto) (0.0-0.2) X10*3/uL Abs Immat Gran (auto) (0.00-0.03) X10*3/uL Absolute Neuts (auto) (2.0-8.3) X10*3/uL Absolute Nucleated RBC (0.0-0.012) X10*3/uL Nucleated RBC % (auto) (0.0-0.2) /100WBC Smear Tech's Comments Sodium (135-145) mmol/L Potassium (3.3-5.1) mmol/l Chloride (96-108) mmol/L Carbon Dioxide (22-29) mmol/L Anion Gap (12-20) BUN (9-16) mg/dL Creatinine (0.5-1.4) mg/dL Estim Creat Clear Calc Estimated GFR Random Glucose (60-115) mg/dL Calcium (8.4-10.2) mg/dL Magnesium 2.0 (1.6-2.6) mg/dL Troponin I High Sens (<3.5-17.0) ng/L B-Natriuretic Peptide (<100) pg/mL Imaging Data CT scan - chest: Attestation: I personally reviewed and interpreted this imaging study as follows: Radiologist's impression: FINDINGS: LUNGS: Scattered pulmonary not micronodules are seen (see saved taylor images). The largest is in the left lower lobe measuring 3.7 mm (series 4 image 234). No worrisome mass or consolidation is seen. No evidence of interstitial lung disease. Some minimal basilar atelectasis is present, right greater than left MEDIASTINUM: The mediastinum is normal. PLEURA: There is no pleural effusion. No pleural mass or thickening. AXILLA: No lymphadenopathy. UPPER ABDOMEN: Hepatic steatosis is present. No other abnormality is seen. OSSEOUS STRUCTURES: Unremarkable. CT/CT chest wo con IMPRESSION: Some scattered pulmonary micronodules are present. Even in the highest of risk patients, follow-up is at most only optional. According to the UPDATED 2017 Fleischner Society recommendations, the advised follow-up imaging for solid nodules < 6 mm is: LOW RISK PATIENT: No routine follow-up. HIGH RISK PATIENT: Optional CT at 12 months. A cause for the patient's shortness of breath has not been found. ECG Data Attestation: I personally reviewed and interpreted this ECG as follows: ECG interpretation date: 09/02/20 Interpretation: Vent. Rate : 088 BPM Atrial Rate : 088 BPM P-R Int : 144 ms QRS Dur : 084 ms QT Int : 378 ms P-R-T Axes : 037 011 067 degrees QTc Int : 457 ms Normal sinus rhythm Normal ECG When compared with ECG of 18-MAY-2020 00:51, Nonspecific T wave abnormality now evident in Lateral leads Discharge Plan Discharge Clinical Impression: Asthma with exacerbation Qualifiers: Asthma severity: moderate Asthma persistence: persistent Qualified Code(s): J45.41 - Moderate persistent asthma with (acute) exacerbation Patient Disposition: Home, Self-Care Instructions: Asthma (ED) Additional Instructions: You were evaluated for shortness of breath, CT scan of the chest shows normal lungs without evidence of infection. Please continue to use Your albuterol and nebulizer treatments as scheduled. we referred You to Dr. Thibodeaux Who is a call center director, a lung doctor. please call and make an appointment. Thank you for choosing this emergency department for evaluation. Please follow-up with primary care physician as needed. Return to the emergency department for any new, concerning, or worsening symptoms. Prescriptions: No Action ondansetron 4 mg tablet,disintegrating 4 mg PO Q8H PRN (Reason: nausea and vomiting) Qty: 20 RF: 0 dicyclomine 20 mg tablet 20 mg PO TID PRN (Reason: cramping) Qty: 20 RF: 0 prednisone 20 mg tablet 40 mg PO DAILY Qty: 10 RF: 0 azithromycin [Zithromax Z-Johnie] 250 mg tablet 250 mg PO DAILY 5 Days Qty: 6 RF: 0 prednisone 20 mg tablet 40 mg PO DAILY 5 Days Qty: 10 RF: 0 doxycycline hyclate 100 mg capsule 100 mg PO DAILY 7 Days Qty: 7 RF: 0 Referrals: Luis Thibodeaux MD [Physician] - 2 days Interventions: ED Discharge Assessment Last Done: 09/02/20 21:43 Discharge Date/Time: 09/02/20 21:43
--- NOTE | 2020-09-02 18:38 | CT_ITS ---
EXAMINATION: CT CHEST WITHOUT CONTRAST CLINICAL INFORMATION: Shortness of breath COMPARISON: Chest radiograph 08/29/2020, chest CT 04/12/2009 TECHNIQUE: Multidetector volumetric CT imaging of the chest was done. Axial MIP volume rendering provided. Sagittal and coronal reformatted images were obtained. This CT examination was performed using dose optimization techniques as appropriate, variously including the following: *Automated exposure control *Adjustment of mA and/or kV according to patient size (this includes techniques or standardized protocols for targeted exams where dose is matched to indication/reason for exam; i.e. extremities or head) *Use of iterative reconstruction technique DLP: 807 mGy-cm FINDINGS: LUNGS: Scattered pulmonary not micronodules are seen (see saved taylor images). The largest is in the left lower lobe measuring 3.7 mm (series 4 image 234). No worrisome mass or consolidation is seen. No evidence of interstitial lung disease. Some minimal basilar atelectasis is present, right greater than left MEDIASTINUM: The mediastinum is normal. PLEURA: There is no pleural effusion. No pleural mass or thickening. AXILLA: No lymphadenopathy. UPPER ABDOMEN: Hepatic steatosis is present. No other abnormality is seen. OSSEOUS STRUCTURES: Unremarkable. CT/CT chest wo con IMPRESSION: Some scattered pulmonary micronodules are present. Even in the highest of risk patients, follow-up is at most only optional. According to the UPDATED 2017 Fleischner Society recommendations, the advised follow-up imaging for solid nodules < 6 mm is: LOW RISK PATIENT: No routine follow-up. HIGH RISK PATIENT: Optional CT at 12 months. A cause for the patient's shortness of breath has not been found.
--- NOTE | 2020-09-02 18:38 | ECG_ITS ---
Test Reason : SHORTNESS OF BREATH Blood Pressure : / mmHG Vent. Rate : 088 BPM Atrial Rate : 088 BPM P-R Int : 144 ms QRS Dur : 084 ms QT Int : 378 ms P-R-T Axes : 037 011 067 degrees QTc Int : 457 ms Normal sinus rhythm Nonspecific T wave abnormality Lateral leads Abnormal ECG When compared with ECG of 18-MAY-2020 00:51, Nonspecific T wave abnormality now evident in Lateral leads Referred By: Courtney Sifuentes Electronically Signed By:KAMILLA NICOLAS MD
[2020-09-02] MEDS: Albuterol Sulfate (0.083%) 2.5 MG/3 ML VIAL.NEB 5 MG INHALE (19:15)
[2020-09-02] MEDS: methylPREDNISolone Sod Succ/PF 125 MG/2 ML VIAL IM (19:57)
[2020-09-02 20:00] VITALS: BP 133/78; PULSE 88; RESP 20; TEMP 37.1; O2SAT 97
[2020-09-02 20:17] LABS: Basophils Absolute Auto 0.1 X10*3/uL (0.0-0.2); Basophils Percent Auto 0.5 % (0-2); Eosinophils Absolute Auto 0.3 X10*3/uL (0.0-0.4); Eosinophils Percent Auto 1.5 % (0-4); Hematocrit 42.2 % (37-47); Hemoglobin 13.4 g/dl (12.0-16.0); Imm Gran Abs Auto 0.13 X10*3/uL (0.00-0.03); Imm Gran Pct Auto 0.8 % (0.0-0.4); Lymphocytes Absolute Auto 4.1 X10*3/uL (1.2-4.9); Lymphocytes Percent Auto 24.5 % (20-40); MANUAL DIFF FLAG SCAN; Mean Corpuscular HGB Conc 31.8 g/dl (31.0-35.0); Mean Corpuscular Hemoglobin 27.7 pg (27.0-33.0); Mean Corpuscular Volume 87.4 fL (80-98); Mean Platelet Volume 8.5 fL (9.4-12.3); Monocytes Absolute Auto 0.9 X10*3/uL (0.1-1.2); Monocytes Percent Auto 5.4 % (2-11); Neutrophils Absolute Auto 11.3 X10*3/uL (2.0-8.3); Neutrophils Percent Auto 67.3 % (45-73); Platelet Count 302 X10*3/uL (160-400); Red Blood Count 4.83 X10*6/uL (4.20-5.50); Red Cell Distribution Width 16.5 % (11.0-16.0); SCAN SMEAR FLAG 1; White Blood Count 16.7 X10*3/uL (4.8-10.8)
[2020-09-02 20:43] LABS: Anion Gap 15 (12-20); Blood Urea Nitrogen 21 mg/dL (9-16); Calcium 8.5 mg/dL (8.4-10.2); Carbon Dioxide 24 mmol/L (22-29); Chloride 105 mmol/L (96-108); Creatinine Clr Calc Pharmacy 156.9; Estimated Glomerular Filt Rate > 60; Glucose Random 132 mg/dL (60-115); Potassium 4.2 mmol/l (3.3-5.1); Sodium 140 mmol/L (135-145)
[2020-09-02 20:47] LABS: SLIDE REVIEW VERIFIED
[2020-09-02 20:49] LABS: B Type Natriuretic Peptide < 10 pg/mL (<100); Troponin-I High Sensitivity < 3.5 ng/L (<3.5-17.0)
== END 2020-09-02 21:43 | disposition home or self-care (01) ==
PROVIDERS: Nurse Practitioner Family; Emergency Provider Emergency Medicine
DX: J45.41 Moderate persistent asthma with (acute) exacerbation (principal); R06.00 Dyspnea, unspecified; F17.200 Nicotine dependence, unspecified, uncomplicated; Z71.6 Tobacco abuse counseling; Z79.899 Other long term (current) drug therapy; F12.90 Cannabis use, unspecified, uncomplicated
CPT/HCPCS: 36415; 71250; 80048; 83735; 83880; 84484; 85025; 93005; 94640; 99284; J2930

== ENCOUNTER 2020-09-06 16:54 | Emergency (ER) | payer MEDICAID, SELFPAY ==
[2020-09-06 17:18] VITALS: BP 180/110; PULSE 87; RESP 17; TEMP 36.7; O2SAT 98; BMI 45.7
[2020-09-06 17:37] LABS: Glucose Urine UA NEG (NEG); Leukocyte Esterase Urine NEG (NEG); Nitrite Urine NEG (NEG); Urine Blood NEG (NEG); Urine Ketones NEG (NEG); Urine Protein TRACE MG/DL (NEG-TRACE)
[2020-09-06 17:41] LABS: Appearance Urine HAZY; Color Urine YELLOW
--- NOTE | 2020-09-06 17:48 | ED_ITS ---
HPI - General Adult General Chief complaint: Upper Respiratory Symptoms Stated complaint: sore throat,request a test Time Seen by Provider: 09/06/20 17:05 Source: patient Mode of arrival: ambulatory Limitations: no limitations History of Present Illness HPI narrative: 39yoF c PMHx of Schizophrenia, manic depression, bipolar 1 disorder, anxiety, arthritis and asthma presenting to the ED with complaints of a sore throat for the past few weeks. Patient also has a 2nd complaint reports that she has had breast tenderness and she had unprotected intercourse recently is unsure when her last period was and had a test last night with a faint line for positive therefore is here for a test as well. Denies any other director food and beverage related complaints such as fevers, nausea/ vomiting, abdominal pain, dysuria, abnormal vaginal discharge or vaginal bleeding or any other symptoms complaints or concerns at this time. Related Data Previous Rx's Medication Instructions Recorded dicyclomine 20 mg PO TID PRN #20 tab 07/24/20 ondansetron 4 mg PO Q8H PRN #20 tab 07/24/20 azithromycin [Zithromax Z-Johnie] 250 mg PO DAILY 5 Days #6 tab 07/31/20 prednisone 40 mg PO DAILY #10 tab 07/31/20 doxycycline hyclate 100 mg PO DAILY 7 Days #7 cap 08/29/20 prednisone 40 mg PO DAILY 5 Days #10 tab 08/29/20 nystatin 100,000 unit BUCCAL DAILY #60 ml 09/06/20 Allergies Allergy/AdvReac Type Severity Reaction Status Date / Time Penicillins [PENICILLINS] Allergy Severe HIVES Verified 07/24/20 11:25 aspirin [ASA] Allergy Intermediate HIVES Verified 07/24/20 11:25 azithromycin [AZITHROMYCIN] Allergy Intermediate ITCHING Verified 07/24/20 11:25 erythromycin base Allergy Intermediate HIVES Verified 07/24/20 11:25 [Erythromycin Base] lamotrigine [From Lamictal] Allergy Intermediate ITCHING Verified 07/24/20 11:25 levofloxacin [From LEVAQUIN] Allergy Intermediate HIVES Verified 07/24/20 11:25 oxycodone [From Percocet] Allergy Intermediate HIVES Verified 07/24/20 11:25 penicillin V Allergy Unknown Itching Verified 07/24/20 11:25 soap [SOAP] Allergy Unknown UNKNOWN Verified 07/24/20 11:25 RXN TO IVORY AND JERGEN'S SOAP Lamictal Allergy Unknown hives Uncoded 06/15/12 00:00 Oxycodone (5MG) Allergy Unknown Itching Uncoded 07/24/20 11:25 Penicillin Allergy Unknown hives Uncoded 06/15/12 00:00 Lactose AdvReac Unknown intolerance Uncoded 06/15/12 00:00 Review of Systems Review of Systems: Constitutional : No Weight loss, No Fever, No Chills, No Night Sweats, No Fatigue, No Malaise ENT/Mouth : No Hearing loss, No Ear Pain, No Nasal Congestion, No Sinus Pain, No Hoarseness, + sore throat, No Rhinorrhea, No Swallowing Difficulty Eyes: No Eye Pain, No Swelling, No Redness, No Foreign Body, No Discharge, No Vision Changes Cardiovascular : No Chest Pain, No SOB, No Dyspnea on Exertion, No Orthopnea, No Edema, No Palpitations Respiratory : No Cough, No Sputum, No Wheezing, No Smoke Exposure, No Dyspnea Gastrointestinal : No Nausea, No Vomiting, No Diarrhea, No Constipation, No abdominal Pain, No Hematochezia, No Melena Genitourinary : no irregular bleeding, No Dysuria, No Urinary Frequency, No Hematuria, No Urinary Incontinence, No Urgency, No Flank Pain, No Urinary Flow Changes, No Hesitancy Musculoskeletal : No joint pain, No Myalgias, No Joint Swelling Skin : No Skin Lesions, No rash Neuro : No Weakness, No Numbness, No Paresthesias, No Loss of Consciousness, No Dizziness, No Headache Psych : No Anxiety/Panic, No Depression, No SI/HI/AH/VH, No Social Issues, Heme/Lymph: No Bruising, No Bleeding,No Lymphadenopathy Endocrine : No Polyuria, No Polydipsia, No Temperature Intolerance Yes all other systems are reviewed and are negative PMFSH Past Medical History Attestation statement: The following information was validated with the patient. Medical History Anxiety Asthma Bipolar 1 disorder Degenerative arthritis of knee, bilateral Hernia Hypertension Manic depression Schizophrenia Social History Social History Alcohol intake: never Smoking Status: Current every day smoker Use of substances other than those prescribed or required for medical reasons: No Substance Use Type: Marijuana Advance Directives: No Advance Directives Information Provided: Yes Physical Exam Vital Signs: Vital Signs: Last Vital Signs Temp 98.1 F 09/06/20 17:18 Pulse 87 09/06/20 17:18 Resp 17 09/06/20 17:18 BP 180/110 H 09/06/20 17:18 Pulse Ox 98 09/06/20 17:18 Body Mass Index 45.7 vital signs have been reviewed as normal and appeared to be correct. Blood pressure normal. Heart rate normal. Respiration rate normal. Temperature normal. Oxygen saturation normal. Appearance: Alert. Oriented X3. No acute distress. Head: Normal external exam. Normocephalic. Eyes: PERRLA. EOMI. Conjunctiva and sclera normal. Eyelids normal. ENT: the bucca Mucosa noted to have white lesions consistent with oropharyngeal candidiasis. Uvula midline. Moist mucous membranes. No trismus noted. No drooling noted. No muffled voice noted. Neck: Normal inspection. Neck supple. FROM. No adenopathy. No meningeal signs. CVS: Normal heart rate and rhythm. Heart sound normal. No murmurs noted. Pulses normal throughout. Respiratory: No respiratory distress. Painless inspiration. Breath sounds normal. No wheezes/rales/rhonchi noted. Chest nontender. No accessory muscle usage noted or decreased air movement noted. Abdomen: Soft and nontender. Bowel sounds normal in all 4 quadrants. No distention noted. No organomegaly noted. No visible injury noted. Back: No CVA tenderness. Full range of motion noted. Skin: Skin warm and dry. Normal skin color. Normal skin turgor. No rashes/lesions/lacerations noted. Extremities: Extremities exhibit normal range of motion. Extremities nontender. Neuro: Oriented X 3. No motor deficit. No sensory deficit. Reflexes normal. Course Course Course Narrative: 39-year-old female presenting to the ED with what appears like oral thrush. Also requesting test. Will obtain a urine and UHCG. If negative will DC home with thrush medication instructions return if any new or worsening symptoms to follow-up with primary care provider. Patient understands agrees with this plan. Medical Decision Making Medical Records Medical records reviewed: Yes I reviewed the patient's medical records. Lab Data Labs: Lab Results 09/06/20 Range/Units 17:28 Urine Color YELLOW Urine Appearance HAZY Urine pH 7.0 (5.0-8.0) Ur Specific [place] 1.010 (1.005-1.025) Urine Protein TRACE (NEG-TRACE) MG/DL Urine Glucose (UA) NEG (NEG) MG/DL Urine Ketones NEG (NEG) MG/DL Urine Blood NEG (NEG) Urine Nitrite NEG (NEG) Ur Leukocyte Esterase NEG (NEG) Discharge Plan Discharge Clinical Impression: Candidiasis of mouth Patient Disposition: Home, Self-Care Instructions: Oral Candidiasis (ED) Prescriptions: New nystatin 100,000 unit/mL suspension 100,000 unit buccal DAILY Qty: 60 RF: 0 No Action ondansetron 4 mg tablet,disintegrating 4 mg PO Q8H PRN (Reason: nausea and vomiting) Qty: 20 RF: 0 dicyclomine 20 mg tablet 20 mg PO TID PRN (Reason: cramping) Qty: 20 RF: 0 prednisone 20 mg tablet 40 mg PO DAILY Qty: 10 RF: 0 azithromycin [Zithromax Z-Johnie] 250 mg tablet 250 mg PO DAILY 5 Days Qty: 6 RF: 0 prednisone 20 mg tablet 40 mg PO DAILY 5 Days Qty: 10 RF: 0 doxycycline hyclate 100 mg capsule 100 mg PO DAILY 7 Days Qty: 7 RF: 0 Referrals: Physician,Unknown [Primary Care Provider] - 2 days (your pcp) Print Language: Prydeinig
[2020-09-06 19:02] LABS: UPreg QC Valid YES; Urine Pregnancy NEGATIVE (NEGATIVE)
[2020-09-06 19:11] VITALS: BP 158/92
== END 2020-09-06 19:12 | disposition home or self-care (01) ==
PROVIDERS: Physician Assistant Medical; Emergency Provider Emergency Medicine
DX: B37.0 Candidal stomatitis (principal); J02.9 Acute pharyngitis, unspecified; F17.200 Nicotine dependence, unspecified, uncomplicated; F12.90 Cannabis use, unspecified, uncomplicated; F33.1 Major depressive disorder, recurrent, moderate; F41.1 Generalized anxiety disorder; F43.0 Acute stress reaction; Z79.899 Other long term (current) drug therapy; Z71.6 Tobacco abuse counseling
CPT/HCPCS: 81003; 81025; 87071; 87880; 99283

== ENCOUNTER 2020-09-27 08:09 | Emergency (ER) | payer MEDICAID, SELFPAY ==
[2020-09-27 08:17] VITALS: BP 150/89; BP 186/70; PULSE 100; PULSE 98; RESP 20; TEMP 36.7; O2SAT 96; BMI 65.7
[2020-09-27 08:26] VITALS: PULSE 94; RESP 20; O2SAT 96
--- NOTE | 2020-09-27 08:33 | XR_ITS ---
EXAMINATION: XR CHEST CLINICAL INFORMATION: SOB and wheezing COMPARISON: None TECHNIQUE: Frontal view of the chest was obtained. FINDINGS: The lungs are well-expanded and clear of acute pneumonic process. The heart size and pulmonary vascularity is normal. No gross bony abnormality seen. XR/XR chest 1V IMPRESSION: Unremarkable chest exam. No change from previous exam.
--- NOTE | 2020-09-27 08:33 | ECG_ITS ---
Test Reason : sob Blood Pressure : / mmHG Vent. Rate : 088 BPM Atrial Rate : 088 BPM P-R Int : 150 ms QRS Dur : 080 ms QT Int : 388 ms P-R-T Axes : 030 009 065 degrees QTc Int : 469 ms Normal sinus rhythm Nonspecific ST and T wave abnormality When compared with ECG of 02-SEP-2020 19:15, Nonspecific ST and T wave abnormality a bit more prominent in lateral leads Referred By: Salud Durand Electronically Signed By:INGA ESTEBAN
--- NOTE | 2020-09-27 08:35 | ED_ITS ---
HPI - URI/Sore Throat General Chief Complaint: Upper Respiratory Symptoms Stated Complaint: SOB/COUGH X4DAYS Time Seen by Provider: 09/27/20 08:20 Source: patient and EMS Mode of arrival: EMS History of Present Illness HPI Narrative: 39yoF c PMHx of Schizophrenia, manic depression, bipolar 1 disorder, anxiety, arthritis, asthma BIBA c/o productive cough of green sputum x4 days with worsening SOB. Reports compliance with asthma medications without relief. Also reports nausea/vomiting x a few days, resolved at present. Denies fever, chills, chest pain, abdominal pain, LE edema, recent travel, sick contacts. Recently tested negative for COVID-19 on 08/29/2020. MD elicited complaint: cough Related Data Previous Rx's Medication Instructions Recorded dicyclomine 20 mg PO TID PRN #20 tab 07/24/20 ondansetron 4 mg PO Q8H PRN #20 tab 07/24/20 azithromycin [Zithromax Z-Johnie] 250 mg PO DAILY 5 Days #6 tab 07/31/20 prednisone 40 mg PO DAILY #10 tab 07/31/20 doxycycline hyclate 100 mg PO DAILY 7 Days #7 cap 08/29/20 prednisone 40 mg PO DAILY 5 Days #10 tab 08/29/20 nystatin 100,000 unit BUCCAL DAILY #60 ml 09/06/20 prednisone 40 mg PO DAILY 5 Days #10 tab 09/27/20 Allergies Allergy/AdvReac Type Severity Reaction Status Date / Time Penicillins [PENICILLINS] Allergy Severe HIVES Verified 07/24/20 11:25 aspirin [ASA] Allergy Intermediate HIVES Verified 07/24/20 11:25 azithromycin [AZITHROMYCIN] Allergy Intermediate ITCHING Verified 07/24/20 11:25 erythromycin base Allergy Intermediate HIVES Verified 07/24/20 11:25 [Erythromycin Base] lamotrigine [From Lamictal] Allergy Intermediate ITCHING Verified 07/24/20 11:25 levofloxacin [From LEVAQUIN] Allergy Intermediate HIVES Verified 07/24/20 11:25 oxycodone [From Percocet] Allergy Intermediate HIVES Verified 07/24/20 11:25 penicillin V Allergy Unknown Itching Verified 07/24/20 11:25 soap [SOAP] Allergy Unknown UNKNOWN Verified 07/24/20 11:25 RXN TO IVORY AND AMBREENGEN'S SOAP Lamictal Allergy Unknown hives Uncoded 06/15/12 00:00 Oxycodone (5MG) Allergy Unknown Itching Uncoded 07/24/20 11:25 Penicillin Allergy Unknown hives Uncoded 06/15/12 00:00 Lactose AdvReac Unknown intolerance Uncoded 06/15/12 00:00 Review of Systems Review of Systems: Constitutional: No Fever, No Chills, No Fatigue, No Malaise ENT/Mouth: No Nasal Congestion, No Sinus Pain, No Hoarseness, No sore throat, No Rhinorrhea Cardiovascular: No Chest Pain, + SOB, + Dyspnea on Exertion, + Orthopnea, No Edema, No Palpitations Respiratory:+ Cough, + Sputum, + Wheezing, No Smoke Exposure, No Dyspnea Gastrointestinal: + Nausea (resolved), + Vomiting, (resolved), No Diarrhea, No Constipation, No Abdominal pain Musculoskeletal: No joint pain, No Myalgias, No Joint Swelling Skin: No Skin Lesions, No rash Yes all other systems are reviewed and are negative [facility] Past Medical History Attestation statement: The following information was validated with the patient. Medical History Anxiety Asthma Bipolar 1 disorder Degenerative arthritis of knee, bilateral Hernia Hypertension Manic depression Schizophrenia Social History Social History Alcohol intake: current Alcohol intake frequency: a few times a week Smoking Status: Current every day smoker Smoked in Last 30 Days: Yes Use of substances other than those prescribed or required for medical reasons: Yes Substance Use Type: Marijuana Substance Use Frequency: Occasionally Advance Directives: No Advance Directives Information Provided: No Physical Exam Vital Signs: Vital Signs: Last Vital Signs Temp 98.1 F 09/27/20 08:17 Pulse 99 09/27/20 09:47 Resp 20 09/27/20 08:26 BP 150/89 H 09/27/20 08:17 Pulse Ox 96 09/27/20 08:26 Body Mass Index 65.7 Const: General: cooperative and healthy appearing Nutritional Appearance: obese Orientation/consciousness: patient oriented x3 Limitations: no limitations HENMT: Head: Yes normal to inspection Ears: hearing grossly normal bilaterally General nose exam: Normal external nose present Face and sinus: Yes normal facial exam Eyes: General: appearance normal, both eyes and all related structures EOM: EOMs intact bilaterally Neck: Neck: Yes normal visual inspection and Yes no meningeal signs Resp: Effort & Inspection: normal respiratory effort Auscultation: wheezes throughout and diminished lung sounds (bibasilar) Cardio: Rate: regular rate Heart sounds: S1 normal heart sound present and S2 normal heart sound present GI: Inspection: Yes normal to inspection Palpation (GI): Soft to palpation, nontender, no guarding and not rigid Skin: Rashes: no rashes Wounds: no wounds Neuro: General: patient oriented x3 and no meningeal signs Extrem: Other: No LE edema or calf ttp General: Yes normal to inspection Course Course Course Narrative: -0942-- CXR unchanged, no leukocytosis, CRP mildly elevated, labs otherwise unremarkable EKG: NSR w/o ischemic changes -1002--COVID-19/influenza/RSV negative >> Duoneb ordered -1035--patient reports symptomatic improvement, would like to leave ED prior to neb treatment, pulled out IV, got dressed. On re-evaluation lungs CTA. Worrisome signs and symptoms and strict return precautions discussed. Will discharge patient with prednisone and PCP follow-up MDM - URI/Sore Throat MDM Narrative Medical decision making narrative: 39yoF c PMHx of Schizophrenia, manic depression, bipolar 1 disorder, anxiety, arthritis, asthma BIBA c/o productive cough of green sputum x4 days with worsening SOB. On exam ESS, NAD/well- appearing, nontoxic, lungs with diffuse wheezing and decreased breath sounds bib asilar. Concern for asthma exacerbation vs pneumonia vs COVID-19/viral syndrome. Low concern for ACS/PE/CHF Plan: EKG, Labs, CXR, COVID-19, albuterol, Solu-Medrol, magnesium, reassess Lab Data Result diagrams: 09/27/20 08:46 09/27/20 08:46 Labs: Lab Results 09/27/20 09/27/20 09/27/20 Range/Units 08:46 08:46 08:46 WBC 10.5 (4.8-10.8) X10*3/uL RBC 4.94 (4.20-5.50) X10*6/uL Hgb 13.4 (12.0-16.0) g/dl Hct 44.3 (37-47) % MCV 89.7 (80-98) fL MCH 27.1 (27.0-33.0) pg MCHC 30.2 L (31.0-35.0) g/dl RDW 15.9 (11.0-16.0) % Plt Count 288 (160-400) X10*3/uL MPV 8.8 L (9.4-12.3) fL Immature Gran % (Auto) 0.4 (0.0-0.4) % Neut % (Auto) 68.9 (45-73) % Lymph % (Auto) 22.4 (20-40) % [place] % (Auto) 5.1 (2-11) % Eos % (Auto) 2.8 (0-4) % Baso % (Auto) 0.4 (0-2) % Lymph # (Auto) 2.4 (1.2-4.9) X10*3/uL [place] # (Auto) 0.5 (0.1-1.2) X10*3/uL Eos # (Auto) 0.3 (0.0-0.4) X10*3/uL Baso # (Auto) 0.0 (0.0-0.2) X10*3/uL Abs Immat Gran (auto) 0.04 H (0.00-0.03) X10*3/uL Absolute Neuts (auto) 7.3 (2.0-8.3) X10*3/uL Absolute Nucleated RBC 0.000 (0.0-0.012) X10*3/uL Nucleated RBC % (auto) 0.0 (0.0-0.2) /100WBC Hold Blue Top SEE NOTE Sodium 141 (135-145) mmol/L Potassium 4.4 (3.3-5.1) mmol/l Chloride 104 (96-108) mmol/L Carbon Dioxide 27 (22-29) mmol/L Anion Gap 14 (12-20) BUN 18 H (9-16) mg/dL Creatinine 0.73 (0.5-1.4) mg/dL Estim Creat Clear Calc 158.6 Estimated GFR > 60 Random Glucose 105 (60-115) mg/dL Calcium 8.2 L (8.4-10.2) mg/dL Magnesium 2.1 (1.6-2.6) mg/dL Total Bilirubin 0.4 (0.0-1.0) mg/dL Direct Bilirubin 0.2 (0.0-0.5) mg/dL AST 21 D (5-31) U/L ALT 24 (0-31) U/L Alkaline Phosphatase 106 D (39-117) U/L Lactate Dehydrogenase 220 (122-220) U/L C-Reactive Protein 5.00 H (< or = 0.50) mg/dL B-Natriuretic Peptide (<100) pg/mL Total Protein 7.5 (6.5-8.0) g/dL Albumin 4.0 (3.5-5.0) g/dL Procalcitonin ng/mL Coronavirus (PCR) (Negative) Influenza Type A (PCR) (Negative) Influenza Type B (PCR) (Negative) RSV RNA Qual (PCR) (Negative) 09/27/20 09/27/20 09/27/20 Range/Units 08:46 08:46 08:46 WBC (4.8-10.8) X10*3/uL RBC (4.20-5.50) X10*6/uL Hgb (12.0-16.0) g/dl Hct (37-47) % MCV (80-98) fL MCH (27.0-33.0) pg MCHC (31.0-35.0) g/dl RDW (11.0-16.0) % Plt Count (160-400) X10*3/uL MPV (9.4-12.3) fL Immature Gran % (Auto) (0.0-0.4) % Neut % (Auto) (45-73) % Lymph % (Auto) (20-40) % [place] % (Auto) (2-11) % Eos % (Auto) (0-4) % Baso % (Auto) (0-2) % Lymph # (Auto) (1.2-4.9) X10*3/uL [place] # (Auto) (0.1-1.2) X10*3/uL Eos # (Auto) (0.0-0.4) X10*3/uL Baso # (Auto) (0.0-0.2) X10*3/uL Abs Immat Gran (auto) (0.00-0.03) X10*3/uL Absolute Neuts (auto) (2.0-8.3) X10*3/uL Absolute Nucleated RBC (0.0-0.012) X10*3/uL Nucleated RBC % (auto) (0.0-0.2) /100WBC Hold Blue Top Sodium (135-145) mmol/L Potassium (3.3-5.1) mmol/l Chloride (96-108) mmol/L Carbon Dioxide (22-29) mmol/L Anion Gap (12-20) BUN (9-16) mg/dL Creatinine (0.5-1.4) mg/dL Estim Creat Clear Calc Estimated GFR Random Glucose (60-115) mg/dL Calcium (8.4-10.2) mg/dL Magnesium (1.6-2.6) mg/dL Total Bilirubin (0.0-1.0) mg/dL Direct Bilirubin (0.0-0.5) mg/dL AST (5-31) U/L ALT (0-31) U/L Alkaline Phosphatase (39-117) U/L Lactate Dehydrogenase (122-220) U/L C-Reactive Protein (< or = 0.50) mg/dL B-Natriuretic Peptide < 10 (<100) pg/mL Total Protein (6.5-8.0) g/dL Albumin (3.5-5.0) g/dL Procalcitonin 0.03 ng/mL Coronavirus (PCR) NEGATIVE (Negative) Influenza Type A (PCR) NEGATIVE (Negative) Influenza Type B (PCR) NEGATIVE (Negative) RSV RNA Qual (PCR) NEGATIVE (Negative) Discharge Plan Discharge Clinical Impression: Asthma attack Qualifiers: Asthma severity: unspecified severity Asthma persistence: unspecified Qualified Code(s): J45.901 - Unspecified asthma with (acute) exacerbation Patient Disposition: Home, Self-Care Instructions: Asthma (ED) Additional Instructions: You are having an asthma exacerbation You to take prednisone as prescribed In addition you to use your albuterol inhalers and neb machine at home Follow-up with her primary care doctor If her symptoms persist or worsen, fever, constant worsening shortness of breath, or chest pain return to the ED Prescriptions: New prednisone 20 mg tablet 40 mg PO DAILY 5 Days Qty: 10 RF: 0 No Action ondansetron 4 mg tablet,disintegrating 4 mg PO Q8H PRN (Reason: nausea and vomiting) Qty: 20 RF: 0 dicyclomine 20 mg tablet 20 mg PO TID PRN (Reason: cramping) Qty: 20 RF: 0 prednisone 20 mg tablet 40 mg PO DAILY Qty: 10 RF: 0 azithromycin [Zithromax Z-Johnie] 250 mg tablet 250 mg PO DAILY 5 Days Qty: 6 RF: 0 prednisone 20 mg tablet 40 mg PO DAILY 5 Days Qty: 10 RF: 0 doxycycline hyclate 100 mg capsule 100 mg PO DAILY 7 Days Qty: 7 RF: 0 nystatin 100,000 unit/mL suspension 100,000 unit buccal DAILY Qty: 60 RF: 0 Referrals: Physician,Unknown [Primary Care Provider] - 2 days (your doctor)
[2020-09-27] MEDS: methylPREDNISolone Sod Succ/PF 125 MG/2 ML VIAL IVPUSH (08:54)
[2020-09-27] MEDS: Magnesium Sulfate/H2O 2 GM/50 ML PIGGYBACK IV (08:54)
[2020-09-27 09:08] LABS: MANUAL DIFF FLAG NO
[2020-09-27 09:17] LABS: Basophils Percent Auto 0.4 % (0-2); Eosinophils Absolute Auto 0.3 X10*3/uL (0.0-0.4); Eosinophils Percent Auto 2.8 % (0-4); Hematocrit 44.3 % (37-47); Hemoglobin 13.4 g/dl (12.0-16.0); Imm Gran Abs Auto 0.04 X10*3/uL (0.00-0.03); Imm Gran Pct Auto 0.4 % (0.0-0.4); Lymphocytes Absolute Auto 2.4 X10*3/uL (1.2-4.9); Lymphocytes Percent Auto 22.4 % (20-40); Mean Corpuscular HGB Conc 30.2 g/dl (31.0-35.0); Mean Corpuscular Hemoglobin 27.1 pg (27.0-33.0); Mean Corpuscular Volume 89.7 fL (80-98); Mean Platelet Volume 8.8 fL (9.4-12.3); Monocytes Absolute Auto 0.5 X10*3/uL (0.1-1.2); Monocytes Percent Auto 5.1 % (2-11); Neutrophils Absolute Auto 7.3 X10*3/uL (2.0-8.3); Neutrophils Percent Auto 68.9 % (45-73); Platelet Count 288 X10*3/uL (160-400); Red Blood Count 4.94 X10*6/uL (4.20-5.50); Red Cell Distribution Width 15.9 % (11.0-16.0); White Blood Count 10.5 X10*3/uL (4.8-10.8)
[2020-09-27 09:39] LABS: Alanine Aminotransferase 24 U/L (0-31); Alkaline Phosphatase 106 U/L (39-117); Anion Gap 14 (12-20); Aspartate Amino Transferase 21 U/L (5-31); Bilirubin Direct 0.2 mg/dL (0.0-0.5); Bilirubin Total 0.4 mg/dL (0.0-1.0); Blood Urea Nitrogen 18 mg/dL (9-16); Calcium 8.2 mg/dL (8.4-10.2); Carbon Dioxide 27 mmol/L (22-29); Chloride 104 mmol/L (96-108); Creatinine Clr Calc Pharmacy 158.6; Estimated Glomerular Filt Rate > 60; Glucose Random 105 mg/dL (60-115); Lactate Dehydrogenase 220 U/L (122-220); Magnesium 2.1 mg/dL (1.6-2.6); Potassium 4.4 mmol/l (3.3-5.1); Sodium 141 mmol/L (135-145); Total Protein 7.5 g/dL (6.5-8.0)
[2020-09-27 09:44] LABS: B Type Natriuretic Peptide < 10 pg/mL (<100)
[2020-09-27] MEDS: Albuterol Sulfate 90 MCG 8 GM INHALER 4 PUFF INHALE (09:46)
[2020-09-27 09:47] VITALS: PULSE 99; O2SAT 96
--- NOTE | 2020-09-27 09:49 | PC.NURSE ---
pt is currently resting in the stretcher, in no apparent distress at this time. pt requested and received a sandwich,pudding, and juice. pt reports feeling better,wants to go home
[2020-09-27 09:50] LABS: Influenza A PCR NEGATIVE (Negative); Influenza B PCR NEGATIVE (Negative); Resp Syncy Virus RNA Qual PCR NEGATIVE (Negative); SARS COV2 PCR INHOUSE NEGATIVE (Negative)
[2020-09-27 09:59] LABS: Procalcitonin 0.03 ng/mL
[2020-09-27 10:00] VITALS: BP 169/100; PULSE 93; RESP 20; TEMP 36.1; O2SAT 97
--- NOTE | 2020-09-27 10:30 | PC.NURSE ---
pt insisting on going home now, does not want to stay for the breathing treatment. aware
[2020-09-27 12:15] LABS: Ferritin 26 ng/mL (10-122)
== END 2020-09-27 10:55 | disposition home or self-care (01) ==
PROVIDERS: Physician Assistant; Emergency Provider Emergency Medicine
DX: J45.901 Unspecified asthma with (acute) exacerbation (principal); Z20.828 Contact with and (suspected) exposure to other viral communicable diseases; I10 Essential (primary) hypertension; F17.200 Nicotine dependence, unspecified, uncomplicated
CPT/HCPCS: 0241U; 36415; 71045; 80048; 80076; 82728; 83615; 83735; 83880; 84145; 85025; 86140; 93005; 94640; 99285; J2930; J3475

== ENCOUNTER 2020-10-13 15:29 | Emergency (ER) | payer MEDICAID, SELFPAY ==
[2020-10-13 15:41] VITALS: BP 156/98; PULSE 91; RESP 17; TEMP 37.2; O2SAT 95; BMI 54.8
--- NOTE | 2020-10-13 16:04 | XR_ITS ---
EXAMINATION: CR CHEST CLINICAL INFORMATION: Cough and shortness of breath. COMPARISON: Several prior chest x-rays, most recent of which is dated 09/27/2020. TECHNIQUE: AP erect view of the chest was obtained. FINDINGS: EKG leads overlie the chest. The cardiomediastinal silhouette is enlarged, likely projectional. Lungs are hypoinflated with slight elevation of the right hemidiaphragm. There is mild central peribronchial thickening and perihilar reticular opacity seen, raising the suspicion of reactive airways disease or bronchitis. No focal consolidation, effusion or pneumothorax is seen. Bony structures are unremarkable. XR/XR chest 1V IMPRESSION: Low lung volumes with findings suggestive of reactive airways disease or bronchitis. No focal pneumonia.
--- NOTE | 2020-10-13 16:04 | ECG_ITS ---
Test Reason : CHEST TIGHTNESS Blood Pressure : / mmHG Vent. Rate : 089 BPM Atrial Rate : 089 BPM P-R Int : 150 ms QRS Dur : 086 ms QT Int : 368 ms P-R-T Axes : 032 006 074 degrees QTc Int : 447 ms Normal sinus rhythm Nonspecific T wave abnormality Abnormal ECG When compared with ECG of 27-SEP-2020 09:36, No significant change was found Referred By: Temo Patel Electronically Signed By:TRINO NIETO MD
[2020-10-13] MEDS: predniSONE 20 MG TABLET 60 MG PO (16:15)
[2020-10-13 16:22] VITALS: PULSE 90; O2SAT 99
[2020-10-13] MEDS: Acetaminophen 325 MG TABLET 650 MG PO (16:37)
[2020-10-13] MEDS: Albuterol Sulfate 90 MCG 8 GM INHALER 4 PUFF INHALE (16:46)
[2020-10-13 17:35] LABS: MANUAL DIFF FLAG NO
[2020-10-13 17:38] LABS: Basophils Absolute Auto 0.1 X10*3/uL (0.0-0.2); Basophils Percent Auto 0.4 % (0-2); Eosinophils Absolute Auto 0.2 X10*3/uL (0.0-0.4); Eosinophils Percent Auto 1.7 % (0-4); Hematocrit 43.2 % (37-47); Hemoglobin 13.3 g/dl (12.0-16.0); Imm Gran Abs Auto 0.07 X10*3/uL (0.00-0.03); Imm Gran Pct Auto 0.5 % (0.0-0.4); Lymphocytes Absolute Auto 2.8 X10*3/uL (1.2-4.9); Lymphocytes Percent Auto 19.8 % (20-40); Mean Corpuscular HGB Conc 30.8 g/dl (31.0-35.0); Mean Corpuscular Hemoglobin 27.2 pg (27.0-33.0); Mean Corpuscular Volume 88.3 fL (80-98); Mean Platelet Volume 8.6 fL (9.4-12.3); Monocytes Absolute Auto 0.9 X10*3/uL (0.1-1.2); Monocytes Percent Auto 6.3 % (2-11); Neutrophils Absolute Auto 9.9 X10*3/uL (2.0-8.3); Neutrophils Percent Auto 71.3 % (45-73); Platelet Count 260 X10*3/uL (160-400); Red Blood Count 4.89 X10*6/uL (4.20-5.50); Red Cell Distribution Width 16.8 % (11.0-16.0); White Blood Count 13.9 X10*3/uL (4.8-10.8)
[2020-10-13 18:02] LABS: Alanine Aminotransferase 22 U/L (0-31); Alkaline Phosphatase 87 U/L (39-117); Anion Gap 14 (12-20); Aspartate Amino Transferase 17 U/L (5-31); Bilirubin Total 0.4 mg/dL (0.0-1.0); Blood Urea Nitrogen 14 mg/dL (9-16); Calcium 8.3 mg/dL (8.4-10.2); Carbon Dioxide 22 mmol/L (22-29); Chloride 107 mmol/L (96-108); Creatinine Clr Calc Pharmacy 123.8; Estimated Glomerular Filt Rate > 60; Glucose Random 111 mg/dL (60-115); Potassium 4.1 mmol/l (3.3-5.1); Sodium 139 mmol/L (135-145); Total Protein 7.2 g/dL (6.5-8.0)
--- NOTE | 2020-10-13 18:02 | ED.URI ---
HPI - URI/Sore Throat General Chief Complaint: Upper Respiratory Symptoms Stated Complaint: diff breathing Time Seen by Provider: 10/13/20 16:03 Source: patient Mode of arrival: ambulatory Limitations: no limitations History of Present Illness HPI Narrative: 39-year-old female with past medical history as noted below including history of schizophrenia, manic depression, bipolar, anxiety disorder as well as asthma who is well known to this facility for multiple prior visits in fact most recently evaluated on the 27 of September here (16 days ago) for asthma exacerbation she presents today complaint of 1 day of cough that is productive with some mild phlegm and also some associated chest pain with the cough. Otherwise denies any fever or chills. No recent travel or obvious sick contacts. She was tested she on September 27 for COVID-19 that was negative. MD elicited complaint: cough Severity: mild Treatments prior to arrival: none Related Data Previous Rx's Medication Instructions Recorded dicyclomine 20 mg PO TID PRN #20 tab 07/24/20 ondansetron 4 mg PO Q8H PRN #20 tab 07/24/20 azithromycin [Zithromax Z-Johnie] 250 mg PO DAILY 5 Days #6 tab 07/31/20 prednisone 40 mg PO DAILY #10 tab 07/31/20 doxycycline hyclate 100 mg PO DAILY 7 Days #7 cap 08/29/20 prednisone 40 mg PO DAILY 5 Days #10 tab 08/29/20 nystatin 100,000 unit BUCCAL DAILY #60 ml 09/06/20 prednisone 40 mg PO DAILY 5 Days #10 tab 09/27/20 prednisone 40 mg PO DAILY 5 Days #10 tab 10/13/20 Allergies Allergy/AdvReac Type Severity Reaction Status Date / Time Penicillins [PENICILLINS] Allergy Severe HIVES Verified 07/24/20 11:25 aspirin [ASA] Allergy Intermediate HIVES Verified 07/24/20 11:25 azithromycin [AZITHROMYCIN] Allergy Intermediate ITCHING Verified 07/24/20 11:25 erythromycin base Allergy Intermediate HIVES Verified 07/24/20 11:25 [Erythromycin Base] lamotrigine [From Lamictal] Allergy Intermediate ITCHING Verified 07/24/20 11:25 levofloxacin [From LEVAQUIN] Allergy Intermediate HIVES Verified 07/24/20 11:25 oxycodone [From Percocet] Allergy Intermediate HIVES Verified 07/24/20 11:25 penicillin V Allergy Unknown Itching Verified 07/24/20 11:25 soap [SOAP] Allergy Unknown UNKNOWN Verified 07/24/20 11:25 RXN TO IVORY AND JERGEN'S SOAP Lamictal Allergy Unknown hives Uncoded 06/15/12 00:00 Oxycodone (5MG) Allergy Unknown Itching Uncoded 07/24/20 11:25 Penicillin Allergy Unknown hives Uncoded 06/15/12 00:00 Lactose AdvReac Unknown intolerance Uncoded 06/15/12 00:00 Review of Systems Review of Systems: Constitutional: No Weight loss, No Fever, No Chills, No Night Sweats, No Fatigue, No Malaise ENT/Mouth: No Hearing loss, No Ear Pain, No Nasal Congestion, No Sinus Pain, No Hoarseness, No sore throat, No Rhinorrhea, No Swallowing Difficulty Eyes: No Eye Pain, No Swelling, No Redness, No Foreign Body, No Discharge, No Vision Changes Cardiovascular: + Chest Pain, No SOB, No Dyspnea on Exertion, No Orthopnea, No Edema, No Palpitations Respiratory: + Cough, + Sputum that is clear, No Wheezing, No Smoke Exposure, No Dyspnea Gastrointestinal: No Nausea, No Vomiting, No Diarrhea, No Constipation, No abdominal Pain, No Hematochezia, No Melena Genitourinary: no irregular bleeding, No Dysuria, No Urinary Frequency, No Hematuria, No Urinary Incontinence, No Urgency, No Flank Pain, No Urinary Flow Changes, No Hesitancy Musculoskeletal: No joint pain, No Myalgias, No Joint Swelling Skin: No Skin Lesions, No rash Neuro: No Weakness, No Numbness, No Paresthesias, No Loss of Consciousness, No Dizziness, No Headache Psych: No Anxiety/Panic, No Depression, No SI/HI/AH/VH, No Social Issues Heme/Lymph: No Bruising, No Bleeding,No Lymphadenopathy Endocrine: No Polyuria, No Polydipsia, No Temperature Intolerance [facility] Past Medical History Medical History Anxiety Asthma Bipolar 1 disorder Degenerative arthritis of knee, bilateral Hernia Hypertension Manic depression Schizophrenia Social History Social History Alcohol intake: never Smoking Status: Current every day smoker Smoked in Last 30 Days: No Use of substances other than those prescribed or required for medical reasons: No Substance Use Type: Marijuana Advance Directives: No Advance Directives Information Provided: No Physical Exam Vital Signs: Vital Signs: Last Vital Signs Temp 99.0 F 10/13/20 15:41 Pulse 91 10/13/20 15:41 Resp 17 10/13/20 15:41 BP 156/98 H 10/13/20 15:41 Pulse Ox 99 10/13/20 16:22 Body Mass Index 54.8 Reviewed Const: General: cooperative and healthy appearing; No acute distress or intoxicated appearing Nutritional Appearance: average body habitus Orientation/consciousness: patient oriented x3 HENMT: Head: Yes normal to inspection Ears: hearing grossly normal bilaterally Eyes: General: appearance normal, both eyes and all related structures Visual Petersen: normal visual petersen by confrontation Neck: Neck: Yes normal visual inspection and No tender Thyroid: Thyroid normal Chest: Chest palpation & inspection: normal inspection of the chest Resp: Effort & Inspection: normal respiratory effort Auscultation: clear to auscultation bilaterally Cardio: Jugular venous distension: no JVD Rate: regular rate Rhythm: regular rhythm Heart sounds: S1 normal heart sound present and S2 normal heart sound present GI: Inspection: Yes normal to inspection Percussion: Yes normal to percussion Auscultation: normal bowel sounds : General: Yes no CVA tenderness Back/Spine/Pelvis: Back: no CVA tenderness Skin: General skin exam: no rashes or lesions noted Neuro: General: patient oriented x3 Extrem: General: Yes normal to inspection Course Course Course Narrative: Initially was very pleasant and after she had labs done she declined COVID test and stating that she has to go and would like to be discharged though the majority of her workup is still pending. She is actually quite pleasant states she does not really want to be here and requesting discharge. AMA given pending workup MDM - URI/Sore Throat Differential Diagnosis Differential diagnosis: Likely upper respiratory infection and viral infection Medical Records Attestation: I reviewed the patient's medical records. Lab Data Attestation: I reviewed the patient's lab results. Result diagrams: 10/13/20 17:20 10/13/20 17:20 Labs: Lab Results 10/13/20 10/13/20 10/13/20 Range/Units 17:20 17:20 17:20 WBC 13.9 H (4.8-10.8) X10*3/uL RBC 4.89 (4.20-5.50) X10*6/uL Hgb 13.3 (12.0-16.0) g/dl Hct 43.2 (37-47) % MCV 88.3 (80-98) fL MCH 27.2 (27.0-33.0) pg MCHC 30.8 L (31.0-35.0) g/dl RDW 16.8 H (11.0-16.0) % Plt Count 260 (160-400) X10*3/uL MPV 8.6 L (9.4-12.3) fL Immature Gran % (Auto) 0.5 H (0.0-0.4) % Neut % (Auto) 71.3 (45-73) % Lymph % (Auto) 19.8 L (20-40) % [place] % (Auto) 6.3 (2-11) % Eos % (Auto) 1.7 (0-4) % Baso % (Auto) 0.4 (0-2) % Lymph # (Auto) 2.8 (1.2-4.9) X10*3/uL [place] # (Auto) 0.9 (0.1-1.2) X10*3/uL Eos # (Auto) 0.2 (0.0-0.4) X10*3/uL Baso # (Auto) 0.1 (0.0-0.2) X10*3/uL Abs Immat Gran (auto) 0.07 H (0.00-0.03) X10*3/uL Absolute Neuts (auto) 9.9 H (2.0-8.3) X10*3/uL Absolute Nucleated RBC 0.000 (0.0-0.012) X10*3/uL Nucleated RBC % (auto) 0.0 (0.0-0.2) /100WBC PT Cancelled INR Cancelled APTT Cancelled Sodium 139 (135-145) mmol/L Potassium 4.1 (3.3-5.1) mmol/l Chloride 107 (96-108) mmol/L Carbon Dioxide 22 (22-29) mmol/L Anion Gap 14 (12-20) BUN 14 (9-16) mg/dL Creatinine 0.83 (0.5-1.4) mg/dL Estim Creat Clear Calc 123.8 Estimated GFR > 60 Random Glucose 111 (60-115) mg/dL Calcium 8.3 L (8.4-10.2) mg/dL Total Bilirubin 0.4 (0.0-1.0) mg/dL AST 17 (5-31) U/L ALT 22 (0-31) U/L Alkaline Phosphatase 87 (39-117) U/L Troponin I High Sens (<3.5-17.0) ng/L Total Protein 7.2 (6.5-8.0) g/dL Albumin 4.0 (3.5-5.0) g/dL 10/13/20 Range/Units 17:20 WBC (4.8-10.8) X10*3/uL RBC (4.20-5.50) X10*6/uL Hgb (12.0-16.0) g/dl Hct (37-47) % MCV (80-98) fL MCH (27.0-33.0) pg MCHC (31.0-35.0) g/dl RDW (11.0-16.0) % Plt Count (160-400) X10*3/uL MPV (9.4-12.3) fL Immature Gran % (Auto) (0.0-0.4) % Neut % (Auto) (45-73) % Lymph % (Auto) (20-40) % [place] % (Auto) (2-11) % Eos % (Auto) (0-4) % Baso % (Auto) (0-2) % Lymph # (Auto) (1.2-4.9) X10*3/uL [place] # (Auto) (0.1-1.2) X10*3/uL Eos # (Auto) (0.0-0.4) X10*3/uL Baso # (Auto) (0.0-0.2) X10*3/uL Abs Immat Gran (auto) (0.00-0.03) X10*3/uL Absolute Neuts (auto) (2.0-8.3) X10*3/uL Absolute Nucleated RBC (0.0-0.012) X10*3/uL Nucleated RBC % (auto) (0.0-0.2) /100WBC PT INR APTT Sodium (135-145) mmol/L Potassium (3.3-5.1) mmol/l Chloride (96-108) mmol/L Carbon Dioxide (22-29) mmol/L Anion Gap (12-20) BUN (9-16) mg/dL Creatinine (0.5-1.4) mg/dL Estim Creat Clear Calc Estimated GFR Random Glucose (60-115) mg/dL Calcium (8.4-10.2) mg/dL Total Bilirubin (0.0-1.0) mg/dL AST (5-31) U/L ALT (0-31) U/L Alkaline Phosphatase (39-117) U/L Troponin I High Sens 3.7 (<3.5-17.0) ng/L Total Protein (6.5-8.0) g/dL Albumin (3.5-5.0) g/dL Discharge Plan Discharge Clinical Impression: Upper respiratory infection, Asthma Patient Disposition: Home, Self-Care Instructions: Asthma (ED), Upper Respiratory Infection (ED), How to Use a Nebulizer (ED) Additional Instructions: Drink plenty fluids Take medication prescribed Self-isolation/social distancing Return if any concerns or worsening symptoms Otherwise follow up with her primary care doctor as discussed Thank you Prescriptions: New prednisone 20 mg tablet 40 mg PO DAILY 5 Days Qty: 10 RF: 0 No Action ondansetron 4 mg tablet,disintegrating 4 mg PO Q8H PRN (Reason: nausea and vomiting) Qty: 20 RF: 0 dicyclomine 20 mg tablet 20 mg PO TID PRN (Reason: cramping) Qty: 20 RF: 0 prednisone 20 mg tablet 40 mg PO DAILY Qty: 10 RF: 0 azithromycin [Zithromax Z-Johnie] 250 mg tablet 250 mg PO DAILY 5 Days Qty: 6 RF: 0 prednisone 20 mg tablet 40 mg PO DAILY 5 Days Qty: 10 RF: 0 doxycycline hyclate 100 mg capsule 100 mg PO DAILY 7 Days Qty: 7 RF: 0 nystatin 100,000 unit/mL suspension 100,000 unit buccal DAILY Qty: 60 RF: 0 prednisone 20 mg tablet 40 mg PO DAILY 5 Days Qty: 10 RF: 0 Referrals: ED Physician,Generic [Physician] - 1 week (Phone visit) Interventions: ED Discharge Assessment Last Done: 10/13/20 18:10
--- NOTE | 2020-10-13 18:09 | PC.NURSE ---
pt requesting to be dc doesnt want covid swab or other results
[2020-10-13 18:10] LABS: Troponin-I High Sensitivity 3.7 ng/L (<3.5-17.0)
== END 2020-10-13 18:15 | disposition home or self-care (01) ==
PROVIDERS: Nurse Practitioner Primary Care; Emergency Provider Emergency Medicine
DX: J06.9 Acute upper respiratory infection, unspecified (principal); J45.909 Unspecified asthma, uncomplicated; I10 Essential (primary) hypertension
CPT/HCPCS: 36415; 71045; 80053; 84484; 85025; 93005; 99284

== ENCOUNTER 2020-11-13 10:13 | Emergency (ER) | payer MEDICAID, SELFPAY ==
--- NOTE | 2020-11-13 10:19 | ED.URI ---
HPI - URI/Sore Throat General Chief Complaint: Dyspnea Stated Complaint: SOB,FEVER,COUGH,? COVID Time Seen by Provider: 11/13/20 10:18 Source: patient and EMS Mode of arrival: EMS History of Present Illness HPI Narrative: 39yoF c PMHx of Schizophrenia, manic depression, bipolar 1 disorder, anxiety, arthritis, asthma BIBA c/o worsening SOB, dry cough and fever x 2-3 days. Also reports left hand/wrist pain and swelling. Denies chest pain, LE edema, recent travel, sick contacts, exposure COVID-19. Denies hand trauma/injury, numbness/tingling Of note seen and treated in our ED on 09/27 and 10/13 for asthma exacerbation Related Data Previous Rx's Medication Instructions Recorded dicyclomine 20 mg PO TID PRN #20 tab 07/24/20 ondansetron 4 mg PO Q8H PRN #20 tab 07/24/20 azithromycin [Zithromax Z-Johnie] 250 mg PO DAILY 5 Days #6 tab 07/31/20 prednisone 40 mg PO DAILY #10 tab 07/31/20 doxycycline hyclate 100 mg PO DAILY 7 Days #7 cap 08/29/20 prednisone 40 mg PO DAILY 5 Days #10 tab 08/29/20 nystatin 100,000 unit BUCCAL DAILY #60 ml 09/06/20 prednisone 40 mg PO DAILY 5 Days #10 tab 09/27/20 prednisone 40 mg PO DAILY 5 Days #10 tab 10/13/20 doxycycline hyclate 100 mg PO BID 7 Days #14 tab 11/13/20 Allergies Allergy/AdvReac Type Severity Reaction Status Date / Time Penicillins [PENICILLINS] Allergy Severe HIVES Verified 07/24/20 11:25 aspirin [ASA] Allergy Intermediate HIVES Verified 07/24/20 11:25 azithromycin [AZITHROMYCIN] Allergy Intermediate ITCHING Verified 07/24/20 11:25 erythromycin base Allergy Intermediate HIVES Verified 07/24/20 11:25 [Erythromycin Base] lamotrigine [From Lamictal] Allergy Intermediate ITCHING Verified 07/24/20 11:25 levofloxacin [From LEVAQUIN] Allergy Intermediate HIVES Verified 07/24/20 11:25 oxycodone [From Percocet] Allergy Intermediate HIVES Verified 07/24/20 11:25 penicillin V Allergy Unknown Itching Verified 07/24/20 11:25 soap [SOAP] Allergy Unknown UNKNOWN Verified 07/24/20 11:25 RXN TO IVORY AND JERGEN'S SOAP Lamictal Allergy Unknown hives Uncoded 06/15/12 00:00 Oxycodone (5MG) Allergy Unknown Itching Uncoded 07/24/20 11:25 Penicillin Allergy Unknown hives Uncoded 06/15/12 00:00 Lactose AdvReac Unknown intolerance Uncoded 06/15/12 00:00 Review of Systems Review of Systems: Constitutional: No Weight loss, +Fever, No Chills, No Night Sweats, No Fatigue, No Malaise Cardiovascular: No Chest Pain, + SOB, + Dyspnea on Exertion, No Orthopnea, No Edema, No Palpitations Respiratory: No Cough, No Sputum, No Wheezing, No Smoke Exposure, No Dyspnea Gastrointestinal: No Nausea, No Vomiting, No Diarrhea, No Constipation, No Abdominal pain Genitourinary: No irregular bleeding, No Dysuria, No Urinary Frequency, No Hematuria Musculoskeletal: + joint pain, No Myalgias, +Joint Swelling Skin: No Skin Lesions, No rash Neuro: No Weakness, No Numbness, No Paresthesias, No Loss of Consciousness, No Dizziness, No Headache Yes all other systems are reviewed and are negative [facility] Past Medical History Attestation statement: The following information was validated with the patient. Source: old records reviewed and nursing notes reviewed Medical History Anxiety Asthma Bipolar 1 disorder Degenerative arthritis of knee, bilateral Hernia Hypertension Manic depression Schizophrenia Social History Social History Alcohol intake: never Smoking Status: Current every day smoker Substance Use Type: Marijuana Advance Directives: No Advance Directives Information Provided: No Physical Exam Vital Signs: Vital Signs: Last Vital Signs Temp 98.8 F 11/13/20 10:33 Pulse 93 11/13/20 11:40 Resp 20 11/13/20 10:33 BP 141/120 H 11/13/20 10:33 Pulse Ox 96 11/13/20 10:33 Body Mass Index 63.1 Const: General: cooperative, healthy appearing and no acute distress Nutritional Appearance: obese Orientation/consciousness: patient oriented x3 Limitations: no limitations HENMT: Head: Yes normal to inspection Ears: hearing grossly normal bilaterally General nose exam: Normal external nose present Face and sinus: Yes normal facial exam Eyes: General: appearance normal, both eyes and all related structures EOM: EOMs intact bilaterally Neck: Neck: Yes normal visual inspection and Yes no meningeal signs Resp: Effort & Inspection: normal respiratory effort Auscultation: clear to auscultation bilaterally, no rales, no rhonchi and no wheezes Cardio: Rate: regular rate Heart sounds: S1 normal heart sound present and S2 normal heart sound present GI: Inspection: Yes normal to inspection Palpation (GI): Soft to palpation, nontender, no guarding and not rigid Skin: Rashes: no rashes Wounds: no wounds Neuro: General: patient oriented x3 and no meningeal signs Gait exam (Neuro): Normal gait present Extrem: Other: The left hand and wrist with mild swelling and ttp. No snuffbox tenderness. Range of motion intact. Neurovascularly intact General: Yes no pedal edema Course Course Course Narrative: Mild leukocytosis of 12.5. COVID-19/influenza/RSV negative. Chest x-ray showing atelectasis or small infiltrate at the right lung base. > will obtain lactic/blood cultures. IV Doxy ordered Left hand/wrist XR WNL 1243-patient refusing lactic/blood cultures. Change IV doxycycline to p.o. as patient does not have a IV line. Plan to DC home with PCP follow-up. Worrisome signs and symptoms and strict return precautions discussed. Patient verbalized understanding and feels safe for discharge home MDM - URI/Sore Throat MDM Narrative Medical decision making narrative: 39yoF c PMHx of Schizophrenia, manic depression, bipolar 1 disorder, anxiety, arthritis, asthma BIBA c/o worsening SOB, dry cough and fever x 2-3 days. Also reports left hand/wrist pain and swelling. On exam hypertensive, NAD/nontoxic satting 96% on RA, lungs CTA. Concern for acute on chronic asthma vs COVID-19/viral syndrome. Low concern for ACS/PE. Low concern for pneumonia. Rule fracture/dislocation. Plan: EKG, labs, CXR, hand/wrist x-ray, albuterol, re-evaluate Medical Records Attestation: I reviewed the patient's medical records. Lab Data Attestation: I reviewed the patient's lab results. Result diagrams: 11/13/20 11:59 11/13/20 11:59 Labs: Lab Results 11/13/20 11/13/20 11/13/20 Range/Units 10:42 11:59 11:59 WBC 12.5 H (4.8-10.8) X10*3/uL RBC 4.90 (4.20-5.50) X10*6/uL Hgb 13.1 (12.0-16.0) g/dl Hct 42.7 (37-47) % MCV 87.1 (80-98) fL MCH 26.7 L (27.0-33.0) pg MCHC 30.7 L (31.0-35.0) g/dl RDW 15.9 (11.0-16.0) % Plt Count 249 (160-400) X10*3/uL MPV 8.7 L (9.4-12.3) fL Immature Gran % (Auto) 0.6 H (0.0-0.4) % Neut % (Auto) 62.8 (45-73) % Lymph % (Auto) 27.4 (20-40) % [place] % (Auto) 6.7 (2-11) % Eos % (Auto) 2.2 (0-4) % Baso % (Auto) 0.3 (0-2) % Lymph # (Auto) 3.4 (1.2-4.9) X10*3/uL [place] # (Auto) 0.8 (0.1-1.2) X10*3/uL Eos # (Auto) 0.3 (0.0-0.4) X10*3/uL Baso # (Auto) 0.0 (0.0-0.2) X10*3/uL Abs Immat Gran (auto) 0.07 H (0.00-0.03) X10*3/uL Absolute Neuts (auto) 7.9 (2.0-8.3) X10*3/uL Absolute Nucleated RBC 0.000 (0.0-0.012) X10*3/uL Nucleated RBC % (auto) 0.0 (0.0-0.2) /100WBC Hold Blue Top SEE NOTE Sodium (135-145) mmol/L Potassium (3.3-5.1) mmol/l Chloride (96-108) mmol/L Carbon Dioxide (22-29) mmol/L Anion Gap (12-20) BUN (9-16) mg/dL Creatinine (0.5-1.4) mg/dL Estim Creat Clear Calc Estimated GFR Random Glucose (60-115) mg/dL Calcium (8.4-10.2) mg/dL Magnesium (1.6-2.6) mg/dL Ferritin (10-122) ng/mL Total Bilirubin (0.0-1.0) mg/dL Direct Bilirubin (0.0-0.5) mg/dL AST (5-31) U/L ALT (0-31) U/L Alkaline Phosphatase (39-117) U/L Lactate Dehydrogenase (122-220) U/L B-Natriuretic Peptide (<100) pg/mL Total Protein (6.5-8.0) g/dL Albumin (3.5-5.0) g/dL Procalcitonin ng/mL Coronavirus (PCR) NEGATIVE (Negative) Influenza Type A (PCR) NEGATIVE (Negative) Influenza Type B (PCR) NEGATIVE (Negative) RSV RNA Qual (PCR) NEGATIVE (Negative) 11/13/20 11/13/20 11/13/20 Range/Units 11:59 11:59 11:59 WBC (4.8-10.8) X10*3/uL RBC (4.20-5.50) X10*6/uL Hgb (12.0-16.0) g/dl Hct (37-47) % MCV (80-98) fL MCH (27.0-33.0) pg MCHC (31.0-35.0) g/dl RDW (11.0-16.0) % Plt Count (160-400) X10*3/uL MPV (9.4-12.3) fL Immature Gran % (Auto) (0.0-0.4) % Neut % (Auto) (45-73) % Lymph % (Auto) (20-40) % [place] % (Auto) (2-11) % Eos % (Auto) (0-4) % Baso % (Auto) (0-2) % Lymph # (Auto) (1.2-4.9) X10*3/uL [place] # (Auto) (0.1-1.2) X10*3/uL Eos # (Auto) (0.0-0.4) X10*3/uL Baso # (Auto) (0.0-0.2) X10*3/uL Abs Immat Gran (auto) (0.00-0.03) X10*3/uL Absolute Neuts (auto) (2.0-8.3) X10*3/uL Absolute Nucleated RBC (0.0-0.012) X10*3/uL Nucleated RBC % (auto) (0.0-0.2) /100WBC Hold Blue Top Sodium 140 (135-145) mmol/L Potassium 4.1 (3.3-5.1) mmol/l Chloride 107 (96-108) mmol/L Carbon Dioxide 24 (22-29) mmol/L Anion Gap 13 (12-20) BUN 16 (9-16) mg/dL Creatinine 0.73 (0.5-1.4) mg/dL Estim Creat Clear Calc 164.3 Estimated GFR > 60 Random Glucose 126 H (60-115) mg/dL Calcium 8.7 (8.4-10.2) mg/dL Magnesium 2.1 (1.6-2.6) mg/dL Ferritin 33 (10-122) ng/mL Total Bilirubin 0.2 (0.0-1.0) mg/dL Direct Bilirubin < 0.2 (0.0-0.5) mg/dL AST 18 (5-31) U/L ALT 24 (0-31) U/L Alkaline Phosphatase 83 (39-117) U/L Lactate Dehydrogenase 222 H (122-220) U/L B-Natriuretic Peptide < 10 (<100) pg/mL Total Protein 6.9 (6.5-8.0) g/dL Albumin 3.7 (3.5-5.0) g/dL Procalcitonin 0.04 ng/mL Coronavirus (PCR) (Negative) Influenza Type A (PCR) (Negative) Influenza Type B (PCR) (Negative) RSV RNA Qual (PCR) (Negative) ECG Data Attestation: I personally reviewed and interpreted this ECG as follows: ECG interpretation date: 11/13/20 ECG interpretation time: 11:05 Interpretation: EKG normal sinus rhythm with a rate of 89. No STEMI. Unchanged from priors Discharge Plan Discharge Clinical Impression: Pneumonia Patient Disposition: Home, Self-Care Instructions: Pneumonia (ED) Additional Instructions: Your chest x-ray showed a possible small pneumonia. Doxycycline as an antibiotic, take as prescribed. He refused other blood work. Continue taking home prescribed medications. Follow up with her primary care doctor. If you develop fevers unresolved with Tylenol or Motrin, constant worsening shortness of breath, chest discomfort, or unable to eat or drink return to the ED Prescriptions: New doxycycline hyclate 100 mg tablet 100 mg PO BID 7 Days Qty: 14 RF: 0 No Action ondansetron 4 mg tablet,disintegrating 4 mg PO Q8H PRN (Reason: nausea and vomiting) Qty: 20 RF: 0 dicyclomine 20 mg tablet 20 mg PO TID PRN (Reason: cramping) Qty: 20 RF: 0 prednisone 20 mg tablet 40 mg PO DAILY 5 Days Qty: 10 RF: 0 prednisone 20 mg tablet 40 mg PO DAILY Qty: 10 RF: 0 azithromycin [Zithromax Z-Johnie] 250 mg tablet 250 mg PO DAILY 5 Days Qty: 6 RF: 0 prednisone 20 mg tablet 40 mg PO DAILY 5 Days Qty: 10 RF: 0 doxycycline hyclate 100 mg capsule 100 mg PO DAILY 7 Days Qty: 7 RF: 0 nystatin 100,000 unit/mL suspension 100,000 unit buccal DAILY Qty: 60 RF: 0 prednisone 20 mg tablet 40 mg PO DAILY 5 Days Qty: 10 RF: 0 Referrals: Fior Wright MD [Primary Care Provider] - 2 days
--- NOTE | 2020-11-13 10:32 | ECG_ITS ---
Test Reason : DIFFICULTY BREATHING Blood Pressure : / mmHG Vent. Rate : 089 BPM Atrial Rate : 089 BPM P-R Int : 148 ms QRS Dur : 088 ms QT Int : 374 ms P-R-T Axes : 033 010 052 degrees QTc Int : 455 ms Normal sinus rhythm Normal ECG When compared with ECG of 13-OCT-2020 16:10, No significant change was found Referred By: Salud Durand Electronically Signed By:Edin Solorzano
[2020-11-13 10:33] VITALS: BP 141/120; BP 220/110; PULSE 96; RESP 20; TEMP 37.1; O2SAT 96; O2SAT 97; BMI 63.1
--- NOTE | 2020-11-13 10:33 | XR_ITS ---
EXAMINATION: XR CHEST CLINICAL INFORMATION: Cough and fever COMPARISON: Previous chest x-ray September 2020 TECHNIQUE: Frontal view of the chest was obtained. FINDINGS: The cardiac and mediastinal contours are stable. The lung volumes are low. There is slight elevation of the right hemidiaphragm. There is atelectasis or small infiltrate at the right lung base. The lungs are otherwise clear. There is no pleural effusion or pneumothorax. This is soft tissue ossification adjacent to the right greater tuberosity. XR/XR chest 1V IMPRESSION: Atelectasis or small infiltrate at the right lung base. Low lung volumes and slightly elevated right hemidiaphragm.
[2020-11-13 11:31] LABS: Influenza A PCR NEGATIVE (Negative); Influenza B PCR NEGATIVE (Negative); Resp Syncy Virus RNA Qual PCR NEGATIVE (Negative); SARS COV2 PCR INHOUSE NEGATIVE (Negative)
--- NOTE | 2020-11-13 11:32 | XR_ITS ---
EXAMINATION: LEFT HAND/WRIST CLINICAL INFORMATION: Left hand/wrist pain and swelling COMPARISON: None TECHNIQUE: 4 views. FINDINGS: There is no visible acute fracture, dislocation or subluxation. The joint space is maintained normal. The soft tissues are normal. XR/XR hand wrist LT IMPRESSION: Unremarkable left hand/wrist exam.
[2020-11-13] MEDS: Albuterol Sulfate 90 MCG 8 GM INHALER 4 PUFF INHALE (11:38)
[2020-11-13 11:40] VITALS: PULSE 93
[2020-11-13 12:06] LABS: MANUAL DIFF FLAG NO
[2020-11-13 12:10] LABS: Basophils Percent Auto 0.3 % (0-2); Eosinophils Absolute Auto 0.3 X10*3/uL (0.0-0.4); Eosinophils Percent Auto 2.2 % (0-4); Hematocrit 42.7 % (37-47); Hemoglobin 13.1 g/dl (12.0-16.0); Imm Gran Abs Auto 0.07 X10*3/uL (0.00-0.03); Imm Gran Pct Auto 0.6 % (0.0-0.4); Lymphocytes Absolute Auto 3.4 X10*3/uL (1.2-4.9); Lymphocytes Percent Auto 27.4 % (20-40); Mean Corpuscular HGB Conc 30.7 g/dl (31.0-35.0); Mean Corpuscular Hemoglobin 26.7 pg (27.0-33.0); Mean Corpuscular Volume 87.1 fL (80-98); Mean Platelet Volume 8.7 fL (9.4-12.3); Monocytes Absolute Auto 0.8 X10*3/uL (0.1-1.2); Monocytes Percent Auto 6.7 % (2-11); Neutrophils Absolute Auto 7.9 X10*3/uL (2.0-8.3); Neutrophils Percent Auto 62.8 % (45-73); Platelet Count 249 X10*3/uL (160-400); Red Cell Distribution Width 15.9 % (11.0-16.0); White Blood Count 12.5 X10*3/uL (4.8-10.8)
--- NOTE | 2020-11-13 12:41 | PC.NURSE ---
PT REFUSING BLOOD CULTURES AND LACTIC ACID BLOOD DRAW. PA MADE AWARE.
[2020-11-13 12:46] LABS: Alanine Aminotransferase 24 U/L (0-31); Albumin Level 3.7 g/dL (3.5-5.0); Alkaline Phosphatase 83 U/L (39-117); Anion Gap 13 (12-20); Aspartate Amino Transferase 18 U/L (5-31); Bilirubin Direct < 0.2 mg/dL (0.0-0.5); Bilirubin Total 0.2 mg/dL (0.0-1.0); Blood Urea Nitrogen 16 mg/dL (9-16); Calcium 8.7 mg/dL (8.4-10.2); Carbon Dioxide 24 mmol/L (22-29); Chloride 107 mmol/L (96-108); Creatinine Clr Calc Pharmacy 164.3; Estimated Glomerular Filt Rate > 60; Glucose Random 126 mg/dL (60-115); Lactate Dehydrogenase 222 U/L (122-220); Magnesium 2.1 mg/dL (1.6-2.6); Potassium 4.1 mmol/l (3.3-5.1); Sodium 140 mmol/L (135-145); Total Protein 6.9 g/dL (6.5-8.0)
[2020-11-13 12:49] LABS: B Type Natriuretic Peptide < 10 pg/mL (<100)
[2020-11-13 13:04] LABS: Procalcitonin 0.04 ng/mL
[2020-11-13 13:06] LABS: Ferritin 33 ng/mL (10-122)
[2020-11-13 13:24] VITALS: PULSE 95; RESP 20; TEMP 36.9; O2SAT 96
== END 2020-11-13 13:31 | disposition home or self-care (01) ==
PROVIDERS: Physician Assistant; Emergency Provider Emergency Medicine; PCP Internal Medicine
DX: J18.9 Pneumonia, unspecified organism (principal); Z20.822 Contact with and (suspected) exposure to COVID-19; I10 Essential (primary) hypertension; J45.909 Unspecified asthma, uncomplicated
CPT/HCPCS: 0241U; 36415; 71045; 73110; 73130; 80048; 80076; 82728; 83615; 83735; 83880; 84145; 85025; 93005; 94640; 96374; 99283; 99284

== ENCOUNTER 2020-11-19 17:58 | Emergency (ER) | payer MEDICAID, SELFPAY ==
[2020-11-19 19:30] VITALS: BP 183/94; PULSE 94; RESP 20; TEMP 36.7; O2SAT 98; BMI 67.3
--- NOTE | 2020-11-19 21:11 | PC.NURSE ---
PT WAS OUT SIDE WHEN CALLED NR WENT OUTSIDE TO TALK CALL PT AND PT TOLD NURSE SHE LEAVING AND GOING ECD MADE AWARE.
== END 2020-11-19 21:00 | disposition left against medical advice (07) ==
PROVIDERS: Emergency Provider Emergency Medicine
DX: R21 Rash and other nonspecific skin eruption (principal)
CPT/HCPCS: 99281; 99282

== ENCOUNTER 2020-11-25 21:06 | Emergency (ER) | payer MEDICAID, SELFPAY ==
--- NOTE | ~2020-11-25 | XR_ITS ---
EXAMINATION: XR CHEST CLINICAL INFORMATION: Pneumonia COMPARISON: 11/13/2020 and priors including chest CT 09/02/2020 TECHNIQUE: 2 views of the chest were obtained. FINDINGS: Persistent minor streaky opacity at the right base. This was present on CT 09/02/2020 and atelectasis above the right diaphragmatic eventration is favored over pneumonia. Interval streaky atelectasis at the left base projecting over the anterior seventh rib. Prior chest CT revealed mosaic lung attenuation with bronchial wall thickening suggesting obstructive airways disease. Cardiac and mediastinal contours are within normal limits. No edema. No mass or adenopathy. Normal gas pattern. Positional scoliosis. XR/XR chest 2V IMPRESSION: Streaky opacities in the right lower lobe are likely atelectasis. Chronic bronchial wall thickening. Probable air trapping on prior CT.
[2020-11-25 21:13] VITALS: BP 135/96; BP 160/90; PULSE 100; PULSE 101; RESP 26; TEMP 37.4; O2SAT 97; BMI 66.0
--- NOTE | 2020-11-25 21:35 | ED_ITS ---
HPI - SOB/Dyspnea General Chief Complaint: Dyspnea Stated Complaint: PNEUMONIA,DIFF BREATHING Time Seen by Provider: 11/25/20 21:20 Source: patient Mode of arrival: EMS Limitations: no limitations History of Present Illness HPI Narrative: Patient chronic smoker with sleep apnea was seen here on 11/13 chest x-ray showed atelectasis was given doxycycline which she cannot take after few days because of itching Related Data Previous Rx's Medication Instructions Recorded dicyclomine 20 mg PO TID PRN #20 tab 07/24/20 ondansetron 4 mg PO Q8H PRN #20 tab 07/24/20 azithromycin [Zithromax Z-Johnie] 250 mg PO DAILY 5 Days #6 tab 07/31/20 prednisone 40 mg PO DAILY #10 tab 07/31/20 doxycycline hyclate 100 mg PO DAILY 7 Days #7 cap 08/29/20 prednisone 40 mg PO DAILY 5 Days #10 tab 08/29/20 nystatin 100,000 unit BUCCAL DAILY #60 ml 09/06/20 prednisone 40 mg PO DAILY 5 Days #10 tab 09/27/20 prednisone 40 mg PO DAILY 5 Days #10 tab 10/13/20 doxycycline hyclate 100 mg PO BID 7 Days #14 tab 11/13/20 cefuroxime axetil 500 mg PO BID 10 Days #20 tab 11/25/20 Allergies Allergy/AdvReac Type Severity Reaction Status Date / Time Penicillins [PENICILLINS] Allergy Severe HIVES Verified 07/24/20 11:25 aspirin [ASA] Allergy Intermediate HIVES Verified 07/24/20 11:25 azithromycin [AZITHROMYCIN] Allergy Intermediate ITCHING Verified 07/24/20 11:25 erythromycin base Allergy Intermediate HIVES Verified 07/24/20 11:25 [Erythromycin Base] lamotrigine [From Lamictal] Allergy Intermediate ITCHING Verified 07/24/20 11:25 levofloxacin [From LEVAQUIN] Allergy Intermediate HIVES Verified 07/24/20 11:25 oxycodone [From Percocet] Allergy Intermediate HIVES Verified 07/24/20 11:25 penicillin V Allergy Unknown Itching Verified 07/24/20 11:25 soap [SOAP] Allergy Unknown UNKNOWN Verified 07/24/20 11:25 RXN TO IVORY AND JERGEN'S SOAP Lamictal Allergy Unknown hives Uncoded 06/15/12 00:00 Oxycodone (5MG) Allergy Unknown Itching Uncoded 07/24/20 11:25 Penicillin Allergy Unknown hives Uncoded 06/15/12 00:00 Lactose AdvReac Unknown intolerance Uncoded 06/15/12 00:00 [facility]LY [facility] Past Medical History Medical History Anxiety Asthma Bipolar 1 disorder Degenerative arthritis of knee, bilateral Hernia Hypertension Manic depression Schizophrenia Social History Social History Alcohol intake: never Smoking Status: Current every day smoker Smoked in Last 30 Days: Yes Use of substances other than those prescribed or required for medical reasons: Yes Substance Use Type: Marijuana Advance Directives: No Advance Directives Information Provided: Yes Physical Exam Vital Signs: Vital Signs: Last Vital Signs Temp 99.3 F 11/25/20 21:13 Pulse 101 H 11/25/20 21:13 Resp 26 H 11/25/20 21:13 BP 135/96 H 11/25/20 21:13 Pulse Ox 97 11/25/20 21:13 Body Mass Index 66.0 MDM - SOB/Dyspnea MDM Narrative Medical decision making narrative: Patient's sleep apnea COPD smokes about 2 packets a day came for cough which is chronic and shortness of breath which is also chronic on arrival patient was saturating 97% at room air patient was seen here on 11/14 for questionable pneumonia at this time chest x-ray showed atelectasis of the bases no acute infiltrate. Will discharge patient home on Ceftin as she is allergic to most other medications Lab Data Attestation: I reviewed the patient's lab results. Labs: Lab Results 11/25/20 Range/Units 21:40 Urine Test NEGATIVE (NEGATIVE) Discharge Plan Discharge Clinical Impression: Bronchitis Patient Disposition: Home, Self-Care Instructions: Acute Bronchitis (ED) Additional Instructions: Take medicine as prescribed continue your BiPAP machine Prescriptions: New cefuroxime axetil 500 mg tablet 500 mg PO BID 10 Days Qty: 20 RF: 0 No Action ondansetron 4 mg tablet,disintegrating 4 mg PO Q8H PRN (Reason: nausea and vomiting) Qty: 20 RF: 0 dicyclomine 20 mg tablet 20 mg PO TID PRN (Reason: cramping) Qty: 20 RF: 0 prednisone 20 mg tablet 40 mg PO DAILY 5 Days Qty: 10 RF: 0 prednisone 20 mg tablet 40 mg PO DAILY Qty: 10 RF: 0 azithromycin [Zithromax Z-Johnie] 250 mg tablet 250 mg PO DAILY 5 Days Qty: 6 RF: 0 prednisone 20 mg tablet 40 mg PO DAILY 5 Days Qty: 10 RF: 0 doxycycline hyclate 100 mg capsule 100 mg PO DAILY 7 Days Qty: 7 RF: 0 nystatin 100,000 unit/mL suspension 100,000 unit buccal DAILY Qty: 60 RF: 0 prednisone 20 mg tablet 40 mg PO DAILY 5 Days Qty: 10 RF: 0 doxycycline hyclate 100 mg tablet 100 mg PO BID 7 Days Qty: 14 RF: 0 Interventions: ED Discharge Assessment Last Done: 11/25/20 22:08 Discharge Date/Time: 11/25/20 22:09
[2020-11-25 21:50] LABS: UPreg QC Valid YES; Urine Pregnancy NEGATIVE (NEGATIVE)
== END 2020-11-25 22:09 | disposition home or self-care (01) ==
PROVIDERS: Emergency Provider Internal Medicine
DX: J20.9 Acute bronchitis, unspecified (principal); I10 Essential (primary) hypertension; J44.9 Chronic obstructive pulmonary disease, unspecified; F17.210 Nicotine dependence, cigarettes, uncomplicated
CPT/HCPCS: 71046; 81025; 99283; 99284

== ENCOUNTER 2020-11-27 12:21 | Emergency (ER) | payer MEDICAID, SELFPAY ==
--- NOTE | ~2020-11-27 | US_ITS ---
EXAMINATION: US VENOUS WITH DOPPLER UPPER EXTREMITY, RIGHT CLINICAL INFORMATION: Edema and swelling COMPARISON: None TECHNIQUE: Ultrasound of the upper extremity is performed using compression sonography and color and pulse Doppler flow with assessment of augmentation of flow. There is also imaging and Doppler assessment of the jugular and subclavian veins. Spectral analysis with color-flow imaging is performed. FINDINGS: Respiratory variation, normal compression, and augmented flow are noted throughout the upper extremity including the axillary, brachial, cubital, and radial and ulnar veins. There is normal flow in the internal jugular and subclavian veins. There is no visible deep or superficial thrombophlebitis. If the patient's symptoms progress, a followup ultrasound in 5 -7 days might be of value to exclude proximal propagation from a nonvisualized distal arm vein. US/US venous duplex UE RT IMPRESSION: No DVT demonstrated in the right upper extremity
[2020-11-27 12:31] VITALS: BP 191/107; PULSE 90; RESP 20; TEMP 36.9; O2SAT 98; BMI 66.0
--- NOTE | 2020-11-27 14:16 | ECG_ITS ---
Test Reason : SOB Blood Pressure : / mmHG Vent. Rate : 090 BPM Atrial Rate : 090 BPM P-R Int : 146 ms QRS Dur : 082 ms QT Int : 368 ms P-R-T Axes : 037 015 054 degrees QTc Int : 450 ms Normal sinus rhythm Normal ECG When compared with ECG of 13-NOV-2020 11:05, No significant change was found Referred By: Zeke Solitario Electronically Signed By:INGA ESTEBAN
[2020-11-27 14:17] VITALS: PULSE 91; RESP 18; O2SAT 98
[2020-11-27 14:19] VITALS: BP 149/129
--- NOTE | 2020-11-27 14:20 | PC.NURSE ---
ANXIOUS. LEFT ARM IS SLIGHTLY RED ENTIRE LENGTH OF ARM AND SLIGHTLY WARM. LS CTA. PT STATES LEFT ARM IS SWOLLEN BUT HARD FOR THIS RN TO PERCEIVE. PT HAS BATISTA AT BASELINE BUT NO WORSE. HASN'T TAKEN HTN MEDS OR ABX ORDERED
[2020-11-27 14:22] VITALS: BMI 66.4
--- NOTE | 2020-11-27 14:38 | ED_ITS ---
HPI - Extremity Problem General Chief complaint: Extremity Problem Stated complaint: R ARM SWOLLEN NO INJ Time Seen by Provider: 11/27/20 14:14 Source: patient and EMS Mode of arrival: EMS History of Present Illness HPI Narrative: 39yoF c PMHx of Schizophrenia, manic depression, bipolar 1 disorder, anxiety, arthritis, asthma BIBA c/o right arm swelling since this morning, sent in by PCP for DVT rule out. Patient was seen in the ED 2 days ago, for chronic cough/so, had antibiotic switched, which reports she has not picked up from pharmacy yet. Also reports she ran out of her antihypertensive medications, and does not think she took them this morning. Denies trauma/falls or injury, numbness, tingling, weakness, shortness of breath, chest pain, fever, chills. Related Data Previous Rx's Medication Instructions Recorded dicyclomine 20 mg PO TID PRN #20 tab 07/24/20 ondansetron 4 mg PO Q8H PRN #20 tab 07/24/20 azithromycin [Zithromax Z-Johnie] 250 mg PO DAILY 5 Days #6 tab 07/31/20 prednisone 40 mg PO DAILY #10 tab 07/31/20 doxycycline hyclate 100 mg PO DAILY 7 Days #7 cap 08/29/20 prednisone 40 mg PO DAILY 5 Days #10 tab 08/29/20 nystatin 100,000 unit BUCCAL DAILY #60 ml 09/06/20 prednisone 40 mg PO DAILY 5 Days #10 tab 09/27/20 prednisone 40 mg PO DAILY 5 Days #10 tab 10/13/20 doxycycline hyclate 100 mg PO BID 7 Days #14 tab 11/13/20 cefuroxime axetil 500 mg PO BID 10 Days #20 tab 11/25/20 Allergies Allergy/AdvReac Type Severity Reaction Status Date / Time Penicillins [PENICILLINS] Allergy Severe HIVES Verified 07/24/20 11:25 aspirin [ASA] Allergy Intermediate HIVES Verified 07/24/20 11:25 azithromycin [AZITHROMYCIN] Allergy Intermediate ITCHING Verified 07/24/20 11:25 erythromycin base Allergy Intermediate HIVES Verified 07/24/20 11:25 [Erythromycin Base] lamotrigine [From Lamictal] Allergy Intermediate ITCHING Verified 07/24/20 11:25 levofloxacin [From LEVAQUIN] Allergy Intermediate HIVES Verified 07/24/20 11:25 oxycodone [From Percocet] Allergy Intermediate HIVES Verified 07/24/20 11:25 penicillin V Allergy Unknown Itching Verified 07/24/20 11:25 soap [SOAP] Allergy Unknown UNKNOWN Verified 07/24/20 11:25 RXN TO IVORY AND JERGEN'S SOAP Lamictal Allergy Unknown hives Uncoded 06/15/12 00:00 Oxycodone (5MG) Allergy Unknown Itching Uncoded 07/24/20 11:25 Penicillin Allergy Unknown hives Uncoded 06/15/12 00:00 Lactose AdvReac Unknown intolerance Uncoded 06/15/12 00:00 Review of Systems Review of Systems: Constitutional: No Weight loss, No Fever, No Chills Cardiovascular: No Chest Pain, +Chronic SOB, +Chronic Dyspnea on Exertion Respiratory: No Cough, No Sputum, No Wheezing, No Smoke Exposure, No Dyspnea Gastrointestinal: No Nausea, No Vomiting, No Abdominal pain Musculoskeletal: + joint pain, No Myalgias, + Joint Swelling Skin: No Skin Lesions, +RUE erythema Neuro: No Weakness, No Numbness, No Paresthesias Yes all other systems are reviewed and are negative [facility] Past Medical History Attestation statement: The following information was validated with the patient. Medical History Anxiety Asthma Bipolar 1 disorder Degenerative arthritis of knee, bilateral Hernia Hypertension Manic depression Schizophrenia Social History Social History Alcohol intake: never Smoking Status: Current every day smoker Use of substances other than those prescribed or required for medical reasons: No Substance Use Type: Marijuana Advance Directives: No Advance Directives Information Provided: No Physical Exam Vital Signs: Vital Signs: Last Vital Signs Temp 98.5 F 11/27/20 12:31 Pulse 87 11/27/20 16:18 Resp 22 H 11/27/20 15:49 BP 159/90 H 11/27/20 16:18 Pulse Ox 97 11/27/20 15:49 Body Mass Index 66.4 Const: General: cooperative and healthy appearing Nutritional Appearance: obese Orientation/consciousness: patient oriented x3 Limitations: no limitations HENMT: Head: Yes normal to inspection Ears: hearing grossly normal bilate rally General nose exam: Normal external nose present Face and sinus: Yes normal facial exam Eyes: General: appearance normal, both eyes and all related structures EOM: EOMs intact bilaterally Neck: Neck: Yes normal visual inspection Resp: Effort & Inspection: normal respiratory effort Auscultation: clear to auscultation bilaterally and wheezes (end expiratory ) Cardio: Rate: regular rate Heart sounds: S1 normal heart sound present and S2 normal heart sound present Skin: Other: +R arm erythema and warmth to touch. Mild swelling. FROM/NV intact Rashes: no rashes Wounds: no wounds Neuro: General: patient oriented x3, tone normal and moves all extremities Gait exam (Neuro): Normal gait present Extrem: Other: +chronic LE edema General: Yes normal to inspection Course Course Course Narrative: -WBC 13.5 (pt with chronic leukocytosis), labs otherwise unremarkable US venous duplex UE RT IMPRESSION: No DVT demonstrated in the right upper extremity >> will tx patient as early cellulitis > patient ready her 2nd at pharmacy, should cover cellulitis, does not need MRSA coverage of the time. MDM - Extremity (Nontraumatic) MDM Narrative Medical decision making narrative: 39yoF c PMHx of Schizophrenia, manic depression, bipolar 1 disorder, anxiety, arthritis, asthma BIBA c/o right arm swelling since this morning, sent in by PCP for DVT rule out. On exam hypertensive, NAD/nontoxic appearing, lungs with end expiratory wheeze. Right arm with mild erythema, warm to touch, mildly swollen. Neurovascularly intact. Concern for DVT versus early cellulitis. Low concern for septic joint/arthritis, PE, or sepsis Plan: Labs, Venous duplex, Reassess Lab Data Result diagrams: 11/27/20 16:20 11/27/20 16:12 Labs: Lab Results 11/27/20 11/27/20 11/27/20 Range/Units 14:37 14:37 16:12 WBC (4.8-10.8) X10*3/uL RBC (4.20-5.50) X10*6/uL Hgb (12.0-16.0) g/dl Hct (37-47) % MCV (80-98) fL MCH (27.0-33.0) pg MCHC (31.0-35.0) g/dl RDW (11.0-16.0) % Plt Count (160-400) X10*3/uL MPV (9.4-12.3) fL Immature Gran % (Auto) (0.0-0.4) % Neut % (Auto) (45-73) % Lymph % (Auto) (20-40) % Chase % (Auto) (2-11) % Eos % (Auto) (0-4) % Baso % (Auto) (0-2) % Lymph # (Auto) (1.2-4.9) X10*3/uL Chase # (Auto) (0.1-1.2) X10*3/uL Eos # (Auto) (0.0-0.4) X10*3/uL Baso # (Auto) (0.0-0.2) X10*3/uL Abs Immat Gran (auto) (0.00-0.03) X10*3/uL Absolute Neuts (auto) (2.0-8.3) X10*3/uL Absolute Nucleated RBC (0.0-0.012) X10*3/uL Nucleated RBC % (auto) (0.0-0.2) /100WBC PT 11.7 (10.8-13.0) SEC INR 1.0 (0.9-1.1) APTT 27.1 (24.1-38.0) SEC Sodium 138 (135-145) mmol/L Potassium 4.0 (3.3-5.1) mmol/L Chloride 105 (96-108) mmol/L Carbon Dioxide 24 (22-29) mmol/L Anion Gap 13 (12-20) BUN 15 (9-16) mg/dL Creatinine 0.75 (0.5-1.4) mg/dL Estim Creat Clear Calc 154.1 Estimated GFR > 60 Random Glucose 137 H (60-115) mg/dL Calcium 8.7 (8.4-10.2) mg/dL B-Natriuretic Peptide < 10 (<100) pg/mL 11/27/20 Range/Units 16:20 WBC 13.5 H (4.8-10.8) X10*3/uL RBC 5.25 (4.20-5.50) X10*6/uL Hgb 14.0 (12.0-16.0) g/dl Hct 45.3 (37-47) % MCV 86.3 (80-98) fL MCH 26.7 L (27.0-33.0) pg MCHC 30.9 L (31.0-35.0) g/dl RDW 15.5 (11.0-16.0) % Plt Count 296 (160-400) X10*3/uL MPV 8.7 L (9.4-12.3) fL Immature Gran % (Auto) 0.4 (0.0-0.4) % Neut % (Auto) 69.8 (45-73) % Lymph % (Auto) 22.3 (20-40) % Chase % (Auto) 5.0 (2-11) % Eos % (Auto) 2.1 (0-4) % Baso % (Auto) 0.4 (0-2) % Lymph # (Auto) 3.0 (1.2-4.9) X10*3/uL Chase # (Auto) 0.7 (0.1-1.2) X10*3/uL Eos # (Auto) 0.3 (0.0-0.4) X10*3/uL Baso # (Auto) 0.1 (0.0-0.2) X10*3/uL Abs Immat Gran (auto) 0.05 H (0.00-0.03) X10*3/uL Absolute Neuts (auto) 9.4 H (2.0-8.3) X10*3/uL Absolute Nucleated RBC 0.000 (0.0-0.012) X10*3/uL Nucleated RBC % (auto) 0.0 (0.0-0.2) /100WBC PT (10.8-13.0) SEC INR (0.9-1.1) APTT (24.1-38.0) SEC Sodium (135-145) mmol/L Potassium (3.3-5.1) mmol/L Chloride (96-108) mmol/L Carbon Dioxide (22-29) mmol/L Anion Gap (12-20) BUN (9-16) mg/dL Creatinine (0.5-1.4) mg/dL Estim Creat Clear Calc Estimated GFR Random Glucose (60-115) mg/dL Calcium (8.4-10.2) mg/dL B-Natriuretic Peptide (<100) pg/mL Discharge Plan Discharge Clinical Impression: Cellulitis Qualifiers: Site of cellulitis: extremity Site of cellulitis of extremity: upper extremity Laterality: right Qualified Code(s): L03.113 - Cellulitis of right upper limb Patient Disposition: Home, Self-Care Instructions: Cellulitis (ED) Additional Instructions: Your blood work is at her baseline today. Your ultrasound was negative for an acute blood clot. You are ready have Ceftin which an antibiotic at the pharmacy, start taking, thus will treat your bronchitis and cellulitis. You should be re-evaluated in 2 days. If the redness on her arm persists, worsens, spreads, or your fever return to the ED sooner Prescriptions: No Action ondansetron 4 mg tablet,disintegrating 4 mg PO Q8H PRN (Reason: nausea and vomiting) Qty: 20 RF: 0 dicyclomine 20 mg tablet 20 mg PO TID PRN (Reason: cramping) Qty: 20 RF: 0 prednisone 20 mg tablet 40 mg PO DAILY 5 Days Qty: 10 RF: 0 cefuroxime axetil 500 mg tablet 500 mg PO BID 10 Days Qty: 20 RF: 0 prednisone 20 mg tablet 40 mg PO DAILY Qty: 10 RF: 0 azithromycin [Zithromax Z-Johnie] 250 mg tablet 250 mg PO DAILY 5 Days Qty: 6 RF: 0 prednisone 20 mg tablet 40 mg PO DAILY 5 Days Qty: 10 RF: 0 doxycycline hyclate 100 mg capsule 100 mg PO DAILY 7 Days Qty: 7 RF: 0 nystatin 100,000 unit/mL suspension 100,000 unit buccal DAILY Qty: 60 RF: 0 prednisone 20 mg tablet 40 mg PO DAILY 5 Days Qty: 10 RF: 0 doxycycline hyclate 100 mg tablet 100 mg PO BID 7 Days Qty: 14 RF: 0 Referrals: Fior Wright MD [Primary Care Provider] - 2 days
[2020-11-27 14:49] LABS: Prothrombin Time 11.7 SEC (10.8-13.0)
[2020-11-27 14:52] LABS: Partial Thromboplastin Time 27.1 SEC (24.1-38.0)
[2020-11-27 15:19] LABS: B Type Natriuretic Peptide < 10 pg/mL (<100)
[2020-11-27 15:49] VITALS: BP 159/99; PULSE 86; RESP 22; O2SAT 97
[2020-11-27 16:18] VITALS: BP 159/90; PULSE 87
[2020-11-27] MEDS: cloNIDine HCL 0.1 MG TABLET PO (16:18)
[2020-11-27 16:31] LABS: Basophils Absolute Auto 0.1 X10*3/uL (0.0-0.2); Basophils Percent Auto 0.4 % (0-2); Eosinophils Absolute Auto 0.3 X10*3/uL (0.0-0.4); Eosinophils Percent Auto 2.1 % (0-4); Hematocrit 45.3 % (37-47); Imm Gran Abs Auto 0.05 X10*3/uL (0.00-0.03); Imm Gran Pct Auto 0.4 % (0.0-0.4); Lymphocytes Percent Auto 22.3 % (20-40); Mean Corpuscular HGB Conc 30.9 g/dl (31.0-35.0); Mean Corpuscular Hemoglobin 26.7 pg (27.0-33.0); Mean Corpuscular Volume 86.3 fL (80-98); Mean Platelet Volume 8.7 fL (9.4-12.3); Monocytes Absolute Auto 0.7 X10*3/uL (0.1-1.2); Neutrophils Absolute Auto 9.4 X10*3/uL (2.0-8.3); Neutrophils Percent Auto 69.8 % (45-73); Platelet Count 296 X10*3/uL (160-400); Red Blood Count 5.25 X10*6/uL (4.20-5.50); Red Cell Distribution Width 15.5 % (11.0-16.0); White Blood Count 13.5 X10*3/uL (4.8-10.8)
[2020-11-27 17:02] LABS: Anion Gap 13 (12-20); Blood Urea Nitrogen 15 mg/dL (9-16); Calcium 8.7 mg/dL (8.4-10.2); Carbon Dioxide 24 mmol/L (22-29); Chloride 105 mmol/L (96-108); Creatinine Clr Calc Pharmacy 154.1; Estimated Glomerular Filt Rate > 60; Glucose Random 137 mg/dL (60-115); Sodium 138 mmol/L (135-145)
== END 2020-11-27 17:44 | disposition home or self-care (01) ==
PROVIDERS: Physician Assistant; Emergency Provider Emergency Medicine; PCP Internal Medicine
DX: L03.113 Cellulitis of right upper limb (principal); M79.601 Pain in right arm; R60.0 Localized edema; F33.1 Major depressive disorder, recurrent, moderate; Z79.899 Other long term (current) drug therapy; F17.200 Nicotine dependence, unspecified, uncomplicated; Z71.6 Tobacco abuse counseling
CPT/HCPCS: 36415; 80048; 83880; 85025; 85610; 85730; 93005; 93971; 99284

== ENCOUNTER 2020-12-10 04:59 | Emergency (ER) | payer MEDICAID, SELFPAY ==
--- NOTE | ~2020-12-10 | XR_ITS ---
EXAMINATION: XR CHEST CLINICAL INFORMATION: Shortness of breath COMPARISON: 11/25/2020 TECHNIQUE: Frontal view of the chest was obtained. FINDINGS: The lungs are well expanded. Mild elevation of the right hemidiaphragm is unchanged. There is no focal consolidation, edema, or effusion. No pneumothorax. The cardiomediastinal silhouette is within normal limits. No acute osseous abnormality. Soft tissue calcification adjacent to both humeral greater tuberosities. XR/XR chest 1V IMPRESSION: No acute pulmonary finding. Calcific tendinosis at both shoulders.
--- NOTE | 2020-12-10 05:12 | ECG_ITS ---
Test Reason : SOB Blood Pressure : / mmHG Vent. Rate : 100 BPM Atrial Rate : 100 BPM P-R Int : 146 ms QRS Dur : 084 ms QT Int : 354 ms P-R-T Axes : 035 008 064 degrees QTc Int : 456 ms Normal sinus rhythm Normal ECG When compared with ECG of 27-NOV-2020 14:16, No significant change was found Referred By: Josefina Royal Electronically Signed By:TRINO NIETO MD
--- NOTE | 2020-12-10 05:13 | ED_ITS ---
HPI - General Adult General Chief complaint: Asthma Stated complaint: SOB Time Seen by Provider: 12/10/20 05:08 Source: patient Mode of arrival: EMS Limitations: no limitations History of Present Illness HPI narrative: Patient comes to emergency room complaining of chronic shortness of breath secondary to an asthma exacerbation. Patient states it is a bit worse than usual. She does have history of asthma, recently diagnosed with bronchitis. Patient states that her worst symptom is the cough and shortness of breath with exertion. Per EMS, patient's initial blood pressure was in the low 200s systolic. Patient states that she does not know if she is taking any medication for hypertension, states that she believes that the last time she had any hypertension medication was approximately 1 year ago. Patient denies chest pain. Patient states that she believes she might be , requesting a test Related Data Previous Rx's Medication Instructions Recorded dicyclomine 20 mg PO TID PRN #20 tab 07/24/20 ondansetron 4 mg PO Q8H PRN #20 tab 07/24/20 azithromycin [Zithromax Z-Johnie] 250 mg PO DAILY 5 Days #6 tab 07/31/20 prednisone 40 mg PO DAILY #10 tab 07/31/20 doxycycline hyclate 100 mg PO DAILY 7 Days #7 cap 08/29/20 prednisone 40 mg PO DAILY 5 Days #10 tab 08/29/20 nystatin 100,000 unit BUCCAL DAILY #60 ml 09/06/20 prednisone 40 mg PO DAILY 5 Days #10 tab 09/27/20 prednisone 40 mg PO DAILY 5 Days #10 tab 10/13/20 doxycycline hyclate 100 mg PO BID 7 Days #14 tab 11/13/20 cefuroxime axetil 500 mg PO BID 10 Days #20 tab 11/25/20 prednisone 50 mg PO DAILY #5 tab 12/10/20 Allergies Allergy/AdvReac Type Severity Reaction Status Date / Time Penicillins [PENICILLINS] Allergy Severe HIVES Verified 07/24/20 11:25 aspirin [ASA] Allergy Intermediate HIVES Verified 07/24/20 11:25 azithromycin [AZITHROMYCIN] Allergy Intermediate ITCHING Verified 07/24/20 11:25 erythromycin base Allergy Intermediate HIVES Verified 07/24/20 11:25 [Erythromycin Base] lamotrigine [From Lamictal] Allergy Intermediate ITCHING Verified 07/24/20 11:25 levofloxacin [From LEVAQUIN] Allergy Intermediate HIVES Verified 07/24/20 11:25 oxycodone [From Percocet] Allergy Intermediate HIVES Verified 07/24/20 11:25 penicillin V Allergy Unknown Itching Verified 07/24/20 11:25 soap [SOAP] Allergy Unknown UNKNOWN Verified 07/24/20 11:25 RXN TO IVORY AND JERGEN'S SOAP Lamictal Allergy Unknown hives Uncoded 06/15/12 00:00 Oxycodone (5MG) Allergy Unknown Itching Uncoded 07/24/20 11:25 Penicillin Allergy Unknown hives Uncoded 06/15/12 00:00 Lactose AdvReac Unknown intolerance Uncoded 06/15/12 00:00 Review of Systems Review of Systems: Constitutional : No Weight loss, No Fever, No Chills, No Night Sweats, No Fatigue, No Malaise ENT/Mouth : No Hearing loss, No Ear Pain, No Nasal Congestion, No Sinus Pain, No Hoarseness, No sore throat, No Rhinorrhea, No Swallowing Difficulty Eyes: No Eye Pain, No Swelling, No Redness, No Foreign Body, No Discharge, No Vision Changes Cardiovascular : No Chest Pain, complaining of dyspnea on exertion No Orthopnea, No Edema, No Palpitations Respiratory : Complaining of cough for several weeks, No Sputum, occasional wheezing, No Smoke Exposure Gastrointestinal : No Nausea, No Vomiting, No Diarrhea, No Constipation, No abdominal Pain, No Hematochezia, No Melena Genitourinary : no irregular bleeding, No Dysuria, No Urinary Frequency, No Hematuria, No Urinary Incontinence, No Urgency, No Flank Pain, No Urinary Flow Changes, No Hesitancy Musculoskeletal : No joint pain, No Myalgias, No Joint Swelling Skin : No Skin Lesions, No rash Neuro : No Weakness, No Numbness, No Paresthesias, No Loss of Consciousness, No Dizziness, No Headache Psych : No Anxiety/Panic, No Depression, No SI/HI/AH/VH, No Social Issues, Heme/Lymph: No Bruising, No Bleeding,No Lymphadenopathy Endocrine : No Polyuria, No Polydipsia, No Temperature Intolerance PMFSH Past Medical History Medical History Anxiety Asthma Bipolar 1 disorder Degenerative arthritis of knee, bilateral Hernia Hypertension Manic depression Schizophrenia Social History Social History Alcohol intake: never Smoking Status: Current every day smoker Substance Use Type: Marijuana Advance Directives: No Advance Directives Information Provided: No Physical Exam Vital Signs: Vital Signs: Last Vital Signs Temp 97.8 F 12/10/20 05:15 Pulse 78 12/10/20 05:15 Resp 18 12/10/20 05:15 BP 178/101 H 12/10/20 05:15 Pulse Ox 98 12/10/20 05:15 Body Mass Index 66.0 Appearance: Alert. Oriented X3. No acute distress. Eyes: Pupils equal, round and reactive to light. ENT: Pharynx normal. Neck: Normal inspection. Neck supple. No lymph nodes noted. No crepitus CVS: Tachycardic, Pulses normal. Normal S1 and S2 Respiratory: No respiratory distress. Breath sounds normal. Mild occasional bilateral wheezing, good air movement, speaking in full sentences, oxygen saturation 98% on room air Abdomen: Soft and nontender. No rigidity. No distention. good BS x4 Skin: Skin warm and dry. Normal skin color. Normal skin turgor. Extremities: No lower extremity edema. No lower extremity edema. No Lacerations. No Rash Neuro: Oriented X 3. No motor deficit. No sensory deficit. Moving all extermities. No slurred speech. Course Course Course Narrative: I discussed the labs and x-ray with the patient, no acute pathology. Patient's test is negative. Patient was walked around the emergency room, patient's oxygen saturation remained between 95 and 98%. Given that the patient states that she has been having asthma exacerbations at home which respond to her inhalers, I will go ahead and sent to her pharmacy prednisone. Patient states she has enough inhalers at home. Medical Decision Making Lab Data Result diagrams: 12/10/20 05:39 12/10/20 05:39 Labs: Lab Results 12/10/20 12/10/20 12/10/20 Range/Units 05:25 05:25 05:25 WBC (4.8-10.8) X10*3/uL RBC (4.20-5.50) X10*6/uL Hgb (12.0-16.0) g/dl Hct (37-47) % MCV (80-98) fL MCH (27.0-33.0) pg MCHC (31.0-35.0) g/dl RDW (11.0-16.0) % Plt Count (160-400) X10*3/uL MPV (9.4-12.3) fL Immature Gran % (Auto) (0.0-0.4) % Neut % (Auto) (45-73) % Lymph % (Auto) (20-40) % [place] % (Auto) (2-11) % Eos % (Auto) (0-4) % Baso % (Auto) (0-2) % Lymph # (Auto) (1.2-4.9) X10*3/uL [place] # (Auto) (0.1-1.2) X10*3/uL Eos # (Auto) (0.0-0.4) X10*3/uL Baso # (Auto) (0.0-0.2) X10*3/uL Abs Immat Gran (auto) (0.00-0.03) X10*3/uL Absolute Neuts (auto) (2.0-8.3) X10*3/uL Absolute Nucleated RBC (0.0-0.012) X10*3/uL Nucleated RBC % (auto) (0.0-0.2) /100WBC Sodium (135-145) mmol/L Potassium (3.3-5.1) mmol/L Chloride (96-108) mmol/L Carbon Dioxide (22-29) mmol/L Anion Gap (12-20) BUN (9-16) mg/dL Creatinine (0.5-1.4) mg/dL Estim Creat Clear Calc Estimated GFR Random Glucose (60-115) mg/dL Calcium (8.4-10.2) mg/dL B-Natriuretic Peptide (<100) pg/mL Urine Color YELLOW Urine Appearance CLEAR Urine pH 7.0 (5.0-8.0) Ur Specific [place] 1.020 (1.005-1.025) Urine Protein TRACE (NEG-TRACE) MG/DL Urine Glucose (UA) NEG (NEG) MG/DL Urine Ketones NEG (NEG) MG/DL Urine Blood TRACE (NEG) Urine Nitrite NEG (NEG) Ur Leukocyte Esterase NEG (NEG) Urine RBC 1-4 (0) /HPF Urine WBC 1-4 (0-4) /HPF Ur Squamous Epith Cells 1+ /LPF Urine Bacteria 1+ /LPF Urine Mucus 1+ /LPF Urine Test NEGATIVE (NEGATIVE) Urine Opiates Screen Not Detected (Not Detect) Ur Barbiturates Screen Not Detected (Not Detect) Ur Phencyclidine Scrn Not Detected (Not Detect) Ur Amphetamines Screen Not Detected (Not Detect) U Benzodiazepines Scrn Not Detected (Not Detect) Urine Cocaine Screen Not Detected (Not Detect) U Marijuana (THC) Screen Not Detected (Not Detect) 12/10/20 12/10/20 12/10/20 Range/Units 05:39 05:39 05:39 WBC 12.5 H (4.8-10.8) X10*3/uL RBC 5.18 (4.20-5.50) X10*6/uL Hgb 13.9 (12.0-16.0) g/dl Hct 44.6 (37-47) % MCV 86.1 (80-98) fL MCH 26.8 L (27.0-33.0) pg MCHC 31.2 (31.0-35.0) g/dl RDW 16.5 H (11.0-16.0) % Plt Count 283 (160-400) X10*3/uL MPV 8.7 L (9.4-12.3) fL Immature Gran % (Auto) 0.4 (0.0-0.4) % Neut % (Auto) 63.4 (45-73) % Lymph % (Auto) 25.6 (20-40) % [place] % (Auto) 8.2 (2-11) % Eos % (Auto) 2.0 (0-4) % Baso % (Auto) 0.4 (0-2) % Lymph # (Auto) 3.2 (1.2-4.9) X10*3/uL [place] # (Auto) 1.0 (0.1-1.2) X10*3/uL Eos # (Auto) 0.3 (0.0-0.4) X10*3/uL Baso # (Auto) 0.1 (0.0-0.2) X10*3/uL Abs Immat Gran (auto) 0.05 H (0.00-0.03) X10*3/uL Absolute Neuts (auto) 7.9 (2.0-8.3) X10*3/uL Absolute Nucleated RBC 0.000 (0.0-0.012) X10*3/uL Nucleated RBC % (auto) 0.0 (0.0-0.2) /100WBC Sodium 142 (135-145) mmol/L Potassium 3.8 (3.3-5.1) mmol/L Chloride 110 H (96-108) mmol/L Carbon Dioxide 23 (22-29) mmol/L Anion Gap 13 (12-20) BUN 15 (9-16) mg/dL Creatinine 0.81 (0.5-1.4) mg/dL Estim Creat Clear Calc 142.0 Estimated GFR > 60 Random Glucose 145 H (60-115) mg/dL Calcium 8.6 (8.4-10.2) mg/dL B-Natriuretic Peptide < 10 (<100) pg/mL Urine Color Urine Appearance Urine pH (5.0-8.0) Ur Specific [place] (1.005-1.025) Urine Protein (NEG-TRACE) MG/DL Urine Glucose (UA) (NEG) MG/DL Urine Ketones (NEG) MG/DL Urine Blood (NEG) Urine Nitrite (NEG) Ur Leukocyte Esterase (NEG) Urine RBC (0) /HPF Urine WBC (0-4) /HPF Ur Squamous Epith Cells /LPF Urine Bacteria /LPF Urine Mucus /LPF Urine Test (NEGATIVE) Urine Opiates Screen (Not Detect) Ur Barbiturates Screen (Not Detect) Ur Phencyclidine Scrn (Not Detect) Ur Amphetamines Screen (Not Detect) U Benzodiazepines Scrn (Not Detect) Urine Cocaine Screen (Not Detect) U Marijuana (THC) Screen (Not Detect) Imaging Data Chest x-ray: Radiologist's impression: The lungs are well expanded. Mild elevation of the right hemidiaphragm is unchanged. There is no focal consolidation, edema, or effusion. No pneumothorax. The cardiomediastinal silhouette is within normal limits. No acute osseous abnormality. Soft tissue calcification adjacent to both humeral greater tuberosities. XR/XR chest 1V IMPRESSION: No acute pulmonary finding. Calcific tendinosis at both shoulders. ECG Data Attestation: I personally reviewed and interpreted this ECG as follows: (Heart rate 100, sinus rhythm, no ST segment depressions or elevations, no T-wave inversions, QTC 456) Discharge Plan Discharge Clinical Impression: Asthma Qualifiers: Asthma severity: unspecified severity Asthma persistence: unspecified Asthma complication type: unspecified Qualified Code(s): J45.909 - Unspecified asthma, uncomplicated Patient Disposition: Home, Self-Care Instructions: Asthma (ED) Additional Instructions: Please follow-up with your primary care physician tomorrow. If you have any worsening or new symptoms, please return to the emergency room or call 911 Prescriptions: New prednisone 50 mg tablet 50 mg PO DAILY Qty: 5 RF: 0 No Action ondansetron 4 mg tablet,disintegrating 4 mg PO Q8H PRN (Reason: nausea and vomiting) Qty: 20 RF: 0 dicyclomine 20 mg tablet 20 mg PO TID PRN (Reason: cramping) Qty: 20 RF: 0 prednisone 20 mg tablet 40 mg PO DAILY 5 Days Qty: 10 RF: 0 cefuroxime axetil 500 mg tablet 500 mg PO BID 10 Days Qty: 20 RF: 0 prednisone 20 mg tablet 40 mg PO DAILY Qty: 10 RF: 0 azithromycin [Zithromax Z-Johnie] 250 mg tablet 250 mg PO DAILY 5 Days Qty: 6 RF: 0 prednisone 20 mg tablet 40 mg PO DAILY 5 Days Qty: 10 RF: 0 doxycycline hyclate 100 mg capsule 100 mg PO DAILY 7 Days Qty: 7 RF: 0 nystatin 100,000 unit/mL suspension 100,000 unit buccal DAILY Qty: 60 RF: 0 prednisone 20 mg tablet 40 mg PO DAILY 5 Days Qty: 10 RF: 0 doxycycline hyclate 100 mg tablet 100 mg PO BID 7 Days Qty: 14 RF: 0
[2020-12-10 05:15] VITALS: BP 178/101; PULSE 78; RESP 18; TEMP 36.6; O2SAT 98; BMI 66.0
[2020-12-10 05:32] LABS: Glucose Urine UA NEG (NEG); Leukocyte Esterase Urine NEG (NEG); Nitrite Urine NEG (NEG); Urine Blood TRACE (NEG); Urine Ketones NEG (NEG); Urine Protein TRACE MG/DL (NEG-TRACE)
[2020-12-10 05:36] LABS: Appearance Urine CLEAR; Color Urine YELLOW
[2020-12-10 05:37] LABS: UPreg QC Valid YES; Urine Pregnancy NEGATIVE (NEGATIVE)
[2020-12-10 05:42] LABS: Bacteria Urine 1+ /LPF; Mucus Urine 1+ /LPF; Squamous Epithelial Cell Urine 1+ /LPF
[2020-12-10 05:44] LABS: Basophils Absolute Auto 0.1 X10*3/uL (0.0-0.2); Basophils Percent Auto 0.4 % (0-2); Eosinophils Absolute Auto 0.3 X10*3/uL (0.0-0.4); Hematocrit 44.6 % (37-47); Hemoglobin 13.9 g/dl (12.0-16.0); Imm Gran Abs Auto 0.05 X10*3/uL (0.00-0.03); Imm Gran Pct Auto 0.4 % (0.0-0.4); Lymphocytes Absolute Auto 3.2 X10*3/uL (1.2-4.9); Lymphocytes Percent Auto 25.6 % (20-40); MANUAL DIFF FLAG NO; Mean Corpuscular HGB Conc 31.2 g/dl (31.0-35.0); Mean Corpuscular Hemoglobin 26.8 pg (27.0-33.0); Mean Corpuscular Volume 86.1 fL (80-98); Mean Platelet Volume 8.7 fL (9.4-12.3); Monocytes Percent Auto 8.2 % (2-11); Neutrophils Absolute Auto 7.9 X10*3/uL (2.0-8.3); Neutrophils Percent Auto 63.4 % (45-73); Platelet Count 283 X10*3/uL (160-400); Red Blood Count 5.18 X10*6/uL (4.20-5.50); Red Cell Distribution Width 16.5 % (11.0-16.0); White Blood Count 12.5 X10*3/uL (4.8-10.8)
[2020-12-10 06:00] LABS: Amphetamine Screen Urine Not Detected (Not Detect); Barbiturates, Urine Not Detected (Not Detect); Benzodiazepines Screen Urine Not Detected (Not Detect); Cannabinoid Screen Urine Not Detected (Not Detect); Cocaine Screen Urine Not Detected (Not Detect); Opiate Screen Urine Not Detected (Not Detect); Phencyclidine Screen Urine Not Detected (Not Detect)
[2020-12-10 06:05] LABS: Anion Gap 13 (12-20); Blood Urea Nitrogen 15 mg/dL (9-16); Calcium 8.6 mg/dL (8.4-10.2); Carbon Dioxide 23 mmol/L (22-29); Chloride 110 mmol/L (96-108); Estimated Glomerular Filt Rate > 60; Glucose Random 145 mg/dL (60-115); Potassium 3.8 mmol/L (3.3-5.1); Sodium 142 mmol/L (135-145)
[2020-12-10 06:11] LABS: B Type Natriuretic Peptide < 10 pg/mL (<100)
[2020-12-10] MEDS: Benzonatate 100 MG CAPSULE PO (06:22)
== END 2020-12-10 06:58 | disposition home or self-care (01) ==
PROVIDERS: Emergency Provider Emergency Medicine
DX: J45.909 Unspecified asthma, uncomplicated (principal); I10 Essential (primary) hypertension; F41.9 Anxiety disorder, unspecified; F31.9 Bipolar disorder, unspecified; F17.200 Nicotine dependence, unspecified, uncomplicated; F12.90 Cannabis use, unspecified, uncomplicated; Z79.899 Other long term (current) drug therapy; Z32.02 Encounter for pregnancy test, result negative
CPT/HCPCS: 36415; 71045; 80048; 80307; 81001; 81025; 83880; 85025; 93005; 99283; 99284

== ENCOUNTER 2021-01-26 03:47 | Emergency (ER) | payer MEDICAID, SELFPAY ==
--- NOTE | ~2021-01-26 | CT_ITS ---
EXAMINATION: CT ABDOMEN AND PELVIS WITH CONTRAST CLINICAL INFORMATION: Abdominal pain COMPARISON: 07/24/2020 TECHNIQUE: Multidetector volumetric images were obtained from the superior aspect of the liver through the pubic symphysis following administration 85 mL of Omnipaque 350 intravenous contrast. Sagittal and coronal reformatted images were obtained on the technologist's workstation. Oral contrast: No This CT examination was performed using dose optimization techniques as appropriate, variously including the following: *Automated exposure control *Adjustment of mA and/or kV according to patient size (this includes techniques or standardized protocols for targeted exams where dose is matched to indication/reason for exam; i.e. extremities or head) *Use of iterative reconstruction technique DLP: 1781 mGy-cm FINDINGS: LUNG BASES: The visualized lung bases are unremarkable. LIVER, GALLBLADDER, AND BILIARY TREE: Liver remains mildly enlarged. Liver contour is smooth. No focal liver lesions. No intra or extrahepatic biliary dilatation. Gallbladder unremarkable. PANCREAS: Unremarkable. SPLEEN: Remains enlarged measuring up to 16 cm long axis. No focal lesions. ADRENAL GLANDS: Unremarkable. KIDNEYS AND URETERS: The kidneys are normal in size, shape, and attenuation. No hydronephrosis, hydroureter, or calculi seen. No perinephric stranding. BLADDER: Unremarkable. GASTROINTESTINAL TRACT: Stomach and small bowel unremarkable. Pancolonic diverticulosis without evidence of diverticulitis. Normal appendix. ABDOMINAL WALL: Status post ventral herniorrhaphy repair as seen previously. Stable stranding within the ventral abdominal subcutaneous fat along the inferior aspect of the hernia repair. Persistent diastasis of the rectus abdominis. LYMPH NODES: Normal. VASCULAR: Unremarkable. PELVIC VISCERA: Uterus and adnexa unremarkable. OSSEOUS STRUCTURES: Unremarkable. CT/CT abdomen pelvis w con IMPRESSION: * No acute findings within the abdomen or pelvis. * Hepatosplenomegaly. * Pancolonic diverticulosis without evidence of diverticulitis. * Stable appearance of the patient's hernia repair., Which demonstrates mild stranding along the inferior aspect of the repair within the ventral subcutaneous fat.
[2021-01-26 04:02] VITALS: BP 136/78; BP 142/98; PULSE 100; PULSE 97; RESP 22; TEMP 37; O2SAT 95; O2SAT 97; BMI 61.4
[2021-01-26 04:26] VITALS: BP 143/106; PULSE 92; RESP 20; O2SAT 95
[2021-01-26 04:34] LABS: Basophils Absolute Auto 0.1 X10*3/uL (0.0-0.2); Basophils Percent Auto 0.3 % (0-2); Eosinophils Absolute Auto 0.2 X10*3/uL (0.0-0.4); Eosinophils Percent Auto 1.4 % (0-4); Hematocrit 43.3 % (37-47); Hemoglobin 13.5 g/dl (12.0-16.0); Imm Gran Abs Auto 0.06 X10*3/uL (0.00-0.03); Imm Gran Pct Auto 0.4 % (0.0-0.4); Lymphocytes Absolute Auto 2.9 X10*3/uL (1.2-4.9); MANUAL DIFF FLAG NO; Mean Corpuscular HGB Conc 31.2 g/dl (31.0-35.0); Mean Corpuscular Hemoglobin 26.5 pg (27.0-33.0); Mean Corpuscular Volume 84.9 fL (80-98); Mean Platelet Volume 8.8 fL (9.4-12.3); Monocytes Absolute Auto 0.8 X10*3/uL (0.1-1.2); Monocytes Percent Auto 4.9 % (2-11); Neutrophils Absolute Auto 11.3 X10*3/uL (2.0-8.3); Platelet Count 327 X10*3/uL (160-400); Red Cell Distribution Width 15.8 % (11.0-16.0); White Blood Count 15.2 X10*3/uL (4.8-10.8)
[2021-01-26 04:56] LABS: Alanine Aminotransferase 26 U/L (0-31); Albumin Level 3.9 g/dL (3.5-5.0); Alkaline Phosphatase 104 U/L (39-117); Anion Gap 16 (12-20); Aspartate Amino Transferase 20 U/L (5-31); Bilirubin Total 0.3 mg/dL (0.0-1.0); Blood Urea Nitrogen 14 mg/dL (9-16); Calcium 8.5 mg/dL (8.4-10.2); Carbon Dioxide 22 mmol/L (22-29); Chloride 106 mmol/L (96-108); Creatinine Clr Calc Pharmacy 142.2; Estimated Glomerular Filt Rate > 60; Glucose Random 100 mg/dL (60-115); Lipase 41 U/L (8-78); Potassium 3.8 mmol/L (3.3-5.1); Sodium 140 mmol/L (135-145); Total Protein 7.4 g/dL (6.5-8.0)
[2021-01-26 05:17] LABS: Glucose Urine UA NEG (NEG); Leukocyte Esterase Urine NEG (NEG); Nitrite Urine NEG (NEG); Specific Gravity - Urine >= 1.030 (1.005-1.025); Urine Blood NEG (NEG); Urine Ketones NEG (NEG); Urine Protein TRACE MG/DL (NEG-TRACE)
[2021-01-26 05:25] LABS: Appearance Urine CLEAR; Color Urine DARK YELLOW
--- NOTE | 2021-01-26 05:25 | ED_ITS ---
HPI - Abdominal Pain General Chief Complaint: Abdominal Pain Stated Complaint: abdominal pain Time Seen by Provider: 01/26/21 04:02 Source: patient Mode of arrival: EMS History of Present Illness HPI narrative: This is a 40-year-old female who presents via EMS from home with complaints of abdominal discomfort this started yesterday and is associated with nausea and vomiting. She denies any associated fevers or chills and denies any urinary symptoms. Of note, patient states that this has been recurring intermittently for the past month. She denies having followed up with the surgery Services for further evaluation but does have a history of hernia repair last year. Related Data Previous Rx's Medication Instructions Recorded dicyclomine 20 mg PO TID PRN #20 tab 07/24/20 ondansetron 4 mg PO Q8H PRN #20 tab 07/24/20 prednisone 40 mg PO DAILY #10 tab 07/31/20 doxycycline hyclate 100 mg PO DAILY 7 Days #7 cap 08/29/20 prednisone 40 mg PO DAILY 5 Days #10 tab 08/29/20 nystatin 100,000 unit BUCCAL DAILY #60 ml 09/06/20 prednisone 40 mg PO DAILY 5 Days #10 tab 09/27/20 prednisone 40 mg PO DAILY 5 Days #10 tab 10/13/20 doxycycline hyclate 100 mg PO BID 7 Days #14 tab 11/13/20 prednisone 50 mg PO DAILY #5 tab 12/10/20 Allergies Allergy/AdvReac Type Severity Reaction Status Date / Time Penicillins [PENICILLINS] Allergy Severe HIVES Verified 01/26/21 04:11 aspirin [ASA] Allergy Intermediate HIVES Verified 01/26/21 04:11 azithromycin [AZITHROMYCIN] Allergy Intermediate ITCHING Verified 01/26/21 04:11 erythromycin base Allergy Intermediate HIVES Verified 01/26/21 04:11 [Erythromycin Base] lamotrigine [From Lamictal] Allergy Intermediate ITCHING Verified 01/26/21 04:11 levofloxacin [From LEVAQUIN] Allergy Intermediate HIVES Verified 01/26/21 04:11 oxycodone [From Percocet] Allergy Intermediate HIVES Verified 01/26/21 04:11 penicillin V Allergy Unknown Itching Verified 01/26/21 04:11 soap [SOAP] Allergy Unknown UNKNOWN Verified 01/26/21 04:11 RXN TO IVORY AND AMBREENGEN'S SOAP Lamictal Allergy Unknown hives Uncoded 01/26/21 04:11 Oxycodone (5MG) Allergy Unknown Itching Uncoded 01/26/21 04:11 Penicillin Allergy Unknown hives Uncoded 01/26/21 04:11 Lactose AdvReac Unknown intolerance Uncoded 01/26/21 04:11 Review of Systems Review of Systems Pertinent positives and negatives as stated in HPI 10 point review of systems is otherwise negative. Physical Exam Vital Signs: Vital Signs: Last Vital Signs Temp 98.1 F 01/26/21 07:13 Pulse 86 01/26/21 07:13 Resp 20 01/26/21 07:13 BP 166/114 H 01/26/21 07:13 Pulse Ox 94 01/26/21 07:13 Body Mass Index 61.4 VITAL SIGNS: Reviewed. GENERAL: Well developed, well nourished, in no acute distress. HEAD: Normocephalic/atraumatic NOSE: Nares patent bilateral OROPHARYNX: no oral lesions noted, posterior pharynx clear NECK: Supple, no adenopathy LUNGS: Normal breath sounds. SpO2<94> CARDIOVASCULAR: Regular rate and rhythm without noted murmurs ABDOMEN: Soft, tenderness on palpation mid abdomen although exam technically difficult, non-distended with bowel sounds. NEUROLOGIC: Alert and oriented x 4. Course Course Course Narrative: This is a 40-year-old female with history and clinical presentation suggestive obstruction versus hernia recurrence and less likely diverticulitis. On review of all investigations there are no acute findings other than in cidental stranding noted at inferior aspect of hernia repair site. Patient able to tolerate oral intake and discussed results with her and instructed to follow-up with Surgical Services for re-evaluation. Patient then discharged home in stable condition. MDM - Abdominal Pain Lab Data Result diagrams: 01/26/21 04:25 01/26/21 04:25 Labs: Lab Results 01/26/21 01/26/21 01/26/21 Range/Units 04:25 04:25 05:04 WBC 15.2 H (4.8-10.8) X10*3/uL RBC 5.10 (4.20-5.50) X10*6/uL Hgb 13.5 (12.0-16.0) g/dl Hct 43.3 (37-47) % MCV 84.9 (80-98) fL MCH 26.5 L (27.0-33.0) pg MCHC 31.2 (31.0-35.0) g/dl RDW 15.8 (11.0-16.0) % Plt Count 327 (160-400) X10*3/uL MPV 8.8 L (9.4-12.3) fL Immature Gran % (Auto) 0.4 (0.0-0.4) % Neut % (Auto) 74.0 H (45-73) % Lymph % (Auto) 19.0 L (20-40) % [place] % (Auto) 4.9 (2-11) % Eos % (Auto) 1.4 (0-4) % Baso % (Auto) 0.3 (0-2) % Lymph # (Auto) 2.9 (1.2-4.9) X10*3/uL [place] # (Auto) 0.8 (0.1-1.2) X10*3/uL Eos # (Auto) 0.2 (0.0-0.4) X10*3/uL Baso # (Auto) 0.1 (0.0-0.2) X10*3/uL Abs Immat Gran (auto) 0.06 H (0.00-0.03) X10*3/uL Absolute Neuts (auto) 11.3 H (2.0-8.3) X10*3/uL Absolute Nucleated RBC 0.000 (0.0-0.012) X10*3/uL Nucleated RBC % (auto) 0.0 (0.0-0.2) /100WBC Sodium 140 (135-145) mmol/L Potassium 3.8 (3.3-5.1) mmol/L Chloride 106 (96-108) mmol/L Carbon Dioxide 22 (22-29) mmol/L Anion Gap 16 (12-20) BUN 14 (9-16) mg/dL Creatinine 0.77 (0.5-1.4) mg/dL Estim Creat Clear Calc 142.2 Estimated GFR > 60 Random Glucose 100 (60-115) mg/dL Calcium 8.5 (8.4-10.2) mg/dL Total Bilirubin 0.3 (0.0-1.0) mg/dL AST 20 (5-31) U/L ALT 26 (0-31) U/L Alkaline Phosphatase 104 D (39-117) U/L Total Protein 7.4 (6.5-8.0) g/dL Albumin 3.9 (3.5-5.0) g/dL Lipase 41 (8-78) U/L Urine Color DARK YELLOW Urine Appearance CLEAR Urine pH 6.0 (5.0-8.0) Ur Specific [place] >= 1.030 H (1.005-1.025) Urine Protein TRACE (NEG-TRACE) MG/DL Urine Glucose (UA) NEG (NEG) MG/DL Urine Ketones NEG (NEG) MG/DL Urine Blood NEG (NEG) Urine Nitrite NEG (NEG) Ur Leukocyte Esterase NEG (NEG) Discharge Plan Discharge Clinical Impression: Abdominal pain Patient Disposition: Home, Self-Care Instructions: Abdominal Pain (ED) Additional Instructions: Do not hesitate to return to the emergency department if you developed acute worsening of symptoms. Prescriptions: No Action ondansetron 4 mg tablet,disintegrating 4 mg PO Q8H PRN (Reason: nausea and vomiting) Qty: 20 RF: 0 dicyclomine 20 mg tablet 20 mg PO TID PRN (Reason: cramping) Qty: 20 RF: 0 prednisone 20 mg tablet 40 mg PO DAILY 5 Days Qty: 10 RF: 0 prednisone 50 mg tablet 50 mg PO DAILY Qty: 5 RF: 0 prednisone 20 mg tablet 40 mg PO DAILY Qty: 10 RF: 0 prednisone 20 mg tablet 40 mg PO DAILY 5 Days Qty: 10 RF: 0 doxycycline hyclate 100 mg capsule 100 mg PO DAILY 7 Days Qty: 7 RF: 0 nystatin 100,000 unit/mL suspension 100,000 unit buccal DAILY Qty: 60 RF: 0 prednisone 20 mg tablet 40 mg PO DAILY 5 Days Qty: 10 RF: 0 doxycycline hyclate 100 mg tablet 100 mg PO BID 7 Days Qty: 14 RF: 0 Referrals: Marley Baum MD [Physician] - 2 days (Re-evaluation and management for intermittent nausea and vomiting with abdominal pain over the past month and noted surgical history ventral hernia within the past year. CT scan notes inflammatory changes at the inferior aspect hernia repair site but nothing other acute.) [facility] Past Medical History Source: nursing notes reviewed Medical History Anxiety Asthma Bipolar 1 disorder Degenerative arthritis of knee, bilateral Hernia Hypertension Manic depression Schizophrenia Social History Social History Alcohol intake: current Alcohol intake frequency: a few times a week Smoking Status: Current every day smoker Use of substances other than those prescribed or required for medical reasons: Yes Substance Use Type: Marijuana Advance Directives: No Advance Directives Information Provided: No
[2021-01-26] MEDS: 0.9 % Sodium Chloride 1,000 ML 999 ML IV (06:02)
[2021-01-26 06:03] VITALS: BP 185/101; PULSE 93; RESP 18; O2SAT 95
[2021-01-26] MEDS: iohexoL 350 MG/ML 100 ML INFUS..BTL IV (06:39)
[2021-01-26 07:13] VITALS: BP 166/114; PULSE 86; RESP 20; TEMP 36.7; O2SAT 94
== END 2021-01-26 07:37 | disposition home or self-care (01) ==
PROVIDERS: Emergency Provider Student in an Organized Health Care Education/Training Program
DX: R10.9 Unspecified abdominal pain (principal); R11.2 Nausea with vomiting, unspecified; I10 Essential (primary) hypertension; J45.909 Unspecified asthma, uncomplicated; F41.9 Anxiety disorder, unspecified; F20.9 Schizophrenia, unspecified
CPT/HCPCS: 36415; 74177; 80053; 81003; 83690; 85025; 96360; 99284; Q9967

== ENCOUNTER → 2021-02-11 11:48 | Outpatient (BNVA) | payer MEDICAID, SELFPAY | PROVIDERS: PCP Internal Medicine; Visit Provider Surgery | DX: R10.9 Unspecified abdominal pain (principal); E66.01 Morbid (severe) obesity due to excess calories | CPT/HCPCS: 99212 ==

== ENCOUNTER 2021-03-07 09:55 | Emergency (ER) | payer MEDICAID, SELFPAY ==
--- NOTE | ~2021-03-07 | XR_ITS ---
EXAMINATION: XR CHEST CLINICAL INFORMATION: Chest pain, anxiety COMPARISON: Chest radiographs 12/10/2020, 11/25/2020, 10/13/2020. TECHNIQUE: 2 views of the chest were obtained. FINDINGS: There are low lung volumes. Mild elevation right hemidiaphragm is chronic, similar to prior studies. The costophrenic sulci are clear. The heart is within normal size. The vascularity is normal. There is no pneumothorax or pneumomediastinum, no airspace consolidation or groundglass opacity. No visible acute bony abnormality. Again, there is bulky calcific tendinosis left shoulder. XR/XR chest 2V IMPRESSION: 1. Low lung volumes. No acute intrathoracic disease. 2. Calcific tendinosis left shoulder.
[2021-03-07 10:04] VITALS: BP 160/90; BP 200/110; PULSE 88; RESP 18; TEMP 37.2; O2SAT 96; O2SAT 97; BMI 50.5
--- NOTE | 2021-03-07 10:12 | ECG_ITS ---
Test Reason : CHEST PAIN Blood Pressure : / mmHG Vent. Rate : 083 BPM Atrial Rate : 083 BPM P-R Int : 148 ms QRS Dur : 086 ms QT Int : 398 ms P-R-T Axes : 028 007 064 degrees QTc Int : 467 ms Normal sinus rhythm Normal ECG When compared with ECG of 10-DEC-2020 05:52, No significant change was found Referred By: Praveena Ferguson Electronically Signed By:TRINO NIETO MD
[2021-03-07 10:49] LABS: MANUAL DIFF FLAG NO
[2021-03-07 10:51] LABS: Basophils Absolute Auto 0.1 X10*3/uL (0.0-0.2); Basophils Percent Auto 0.3 % (0-2); Eosinophils Absolute Auto 0.2 X10*3/uL (0.0-0.4); Eosinophils Percent Auto 1.5 % (0-4); Hemoglobin 12.8 g/dl (12.0-16.0); Imm Gran Abs Auto 0.08 X10*3/uL (0.00-0.03); Imm Gran Pct Auto 0.5 % (0.0-0.4); Lymphocytes Absolute Auto 2.7 X10*3/uL (1.2-4.9); Lymphocytes Percent Auto 18.4 % (20-40); Mean Corpuscular HGB Conc 30.5 g/dl (31.0-35.0); Mean Corpuscular Hemoglobin 25.8 pg (27.0-33.0); Mean Corpuscular Volume 84.5 fL (80-98); Mean Platelet Volume 8.6 fL (9.4-12.3); Monocytes Absolute Auto 0.7 X10*3/uL (0.1-1.2); Monocytes Percent Auto 4.8 % (2-11); Neutrophils Absolute Auto 10.9 X10*3/uL (2.0-8.3); Neutrophils Percent Auto 74.5 % (45-73); Platelet Count 286 X10*3/uL (160-400); Red Blood Count 4.97 X10*6/uL (4.20-5.50); Red Cell Distribution Width 16.7 % (11.0-16.0); White Blood Count 14.7 X10*3/uL (4.8-10.8)
--- NOTE | 2021-03-07 10:52 | PC.NURSE ---
BLOOD WORK COLLECTED AND SENT. PT REFUSED COVID SWAB. RN AND PROVIDER AWARE.
[2021-03-07 11:10] VITALS: BP 155/89; PULSE 109
[2021-03-07 11:10] LABS: Glucose Urine UA NEG (NEG); Leukocyte Esterase Urine NEG (NEG); Nitrite Urine NEG (NEG); Specific Gravity - Urine >= 1.030 (1.005-1.025); Urine Blood TRACE (NEG); Urine Ketones NEG (NEG); Urine Protein NEG (NEG-TRACE)
[2021-03-07] MEDS: LORazepam 1 MG TABLET 2 MG PO (11:10)
[2021-03-07] MEDS: cloNIDine HCL 0.1 MG TABLET PO (11:10)
[2021-03-07 11:13] LABS: Appearance Urine CLEAR; Color Urine YELLOW
[2021-03-07 11:16] LABS: Magnesium 2.1 mg/dL (1.6-2.6)
[2021-03-07 11:17] LABS: Alanine Aminotransferase 19 U/L (0-31); Albumin Level 3.6 g/dL (3.5-5.0); Alkaline Phosphatase 88 U/L (39-117); Anion Gap 13 (12-20); Aspartate Amino Transferase 13 U/L (5-31); Bilirubin Total 0.4 mg/dL (0.0-1.0); Blood Urea Nitrogen 13 mg/dL (9-16); Calcium 8.5 mg/dL (8.4-10.2); Carbon Dioxide 24 mmol/L (22-29); Chloride 108 mmol/L (96-108); Creatinine Clr Calc Pharmacy 177.4; Estimated Glomerular Filt Rate > 60; Glucose Random 94 mg/dL (60-115); Lipase 29 U/L (8-78); Potassium 3.8 mmol/L (3.3-5.1); Sodium 141 mmol/L (135-145); Total Protein 6.8 g/dL (6.5-8.0)
[2021-03-07 11:21] LABS: Ethanol < 10 mg/dL
[2021-03-07 11:22] LABS: Troponin-I High Sensitivity 3.8 ng/L (<3.5-17.0)
[2021-03-07 11:23] LABS: B Type Natriuretic Peptide 11 pg/mL (<100)
[2021-03-07 11:23] LABS: HCG Quantitative < 2 mIU/mL
[2021-03-07 11:24] LABS: RBC Urine 0-2 /HPF (0); Squamous Epithelial Cell Urine TRACE /LPF; WBC Urine 0-2 /HPF (0-4)
[2021-03-07 11:33] LABS: Amphetamine Screen Urine Not Detected (Not Detect); Barbiturates, Urine Not Detected (Not Detect); Benzodiazepines Screen Urine Not Detected (Not Detect); Cannabinoid Screen Urine POSITIVE (Not Detect); Cocaine Screen Urine Not Detected (Not Detect); Opiate Screen Urine Not Detected (Not Detect); Phencyclidine Screen Urine Not Detected (Not Detect)
--- NOTE | 2021-03-07 11:52 | ED.PSYCH ---
HPI - Psych General Chief Complaint: Psychiatric Symptoms Stated Complaint: CHEST PAIN W/ SI Time Seen by Provider: 03/07/21 10:11 Source: patient and EMS Mode of arrival: EMS Limitations: no limitations History of Present Illness HPI Narrative: 40-year-old female with past medical history of schizophrenia, manic depression, bipolar 1 disorder, anxiety, morbid obese, hypertension, asthma and herpes genitalis presenting to the ED with complaints of chest pain that started last night while she was arguing with her ex-boyfriend now she is reporting that she has increased anxiety/depression with SI/HI thoughts although no plan in place. Reports she also has not been taking her medications in over a month. Also reports a flare up of her herpes lesions to the vaginal area. Denies any other symptoms complaints or concerns at this time. Reports that she smokes marijuana denies any other drug usage or alcohol usage. 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[employer]) Related Data Home Medications Medication Instructions Recorded Confirmed clonidine HCl 0.1 mg tablet 0.1 mg PO BID@1600,199902/11/21 03/07/21 quetiapine 300 mg tablet 300 mg PO BEDTIME 02/11/21 03/07/21 topiramate 100 mg tablet 100 mg PO TID 02/11/21 03/07/21 bupropion HCl 100 mg PO DAILY 03/07/21 03/07/21 gabapentin 100 mg PO TID 03/07/21 03/07/21 losartan 50 mg PO DAILY 03/07/21 03/07/21 perphenazine 4 mg PO BID 03/07/21 03/07/21 Previous Rx's Medication Instructions Recorded valacyclovir [Valtrex] 1,000 mg PO DAILY #30 tab 03/07/21 Allergies Allergy/AdvReac Type Severity Reaction Status Date / Time Penicillins [PENICILLINS] Allergy Severe HIVES Verified 02/11/21 12:02 aspirin [ASA] Allergy Intermediate HIVES Verified 02/11/21 12:02 azithromycin [AZITHROMYCIN] Allergy Intermediate ITCHING Verified 02/11/21 12:02 erythromycin base Allergy Intermediate HIVES Verified 02/11/21 12:02 [Erythromycin Base] lamotrigine [From Lamictal] Allergy Intermediate ITCHING Verified 02/11/21 12:02 levofloxacin [From LEVAQUIN] Allergy Intermediate HIVES Verified 02/11/21 12:02 oxycodone [From Percocet] Allergy Intermediate HIVES Verified 02/11/21 12:02 penicillin V Allergy Unknown Itching Verified 02/11/21 12:02 soap [SOAP] Allergy Unknown UNKNOWN Verified 02/11/21 12:02 RXN TO IVORY AND JERGEN'S SOAP Lamictal Allergy Unknown hives Uncoded 01/26/21 04:11 Oxycodone (5MG) Allergy Unknown Itching Uncoded 01/26/21 04:11 Penicillin Allergy Unknown hives Uncoded 01/26/21 04:11 Lactose AdvReac Unknown intolerance Uncoded 01/26/21 04:11 Review of Systems Review of Systems: Constitutional : No Fever, No Chills ENT/Mouth : No Ear Pain, No Nasal Congestion, No sore throat Eyes: No Eye Pain, No Swelling, No Redness Cardiovascular : + Chest Pain, No SOB Respiratory : No Cough, No Sputum, No Dyspnea Gastrointestinal : No ingestions, No Nausea, No Vomiting, No Diarrhea, No Hematochezia, No Melena Genitourinary : No Dysuria, No Urinary Frequency, No Hematuria Musculoskeletal : No Myalgias Skin : No Skin Lesions, No rash Neuro : No Weakness, No Numbness, No Paresthesias, No Dizziness, No Headache Psych : + Anxiety, + Depression, + SI, + thoughts of self injury, + HI, No AVH, Heme/Lymph: No Lymphadenopathy Endocrine : No Polyuria, No Polydipsia Yes all other systems are reviewed and are negative PMFSH Past Medical History Attestation statement: The following information was validated with the patient. Medical History (Updated 03/07/21 @ 13:30 by SITA Rodriguez) Abdominal pain Anxiety Asthma Bipolar 1 disorder Degenerative arthritis of knee, bilateral Hernia Hypertension Manic depression Morbid obesity Morbid obesity Schizophrenia Surgical History History of hernia surgery Social History Social History Alcohol intake: current Alcohol intake frequency: a few times a week Alcohol type: beer Smoking Status: Former smoker Smoked in Last 30 Days: No Use of substances other than those prescribed or required for medical reasons: Yes Substance Use Type: Marijuana Substance Use Frequency: Chronic Longstanding Last Used Substance: Days (ago) Any prior treatment program specific to substance use: No Advance Directives: No Advance Directives Information Provided: No Patient : No Physical Exam Vital Signs: Vital Signs: Last Vital Signs Temp 97.8 F 03/07/21 13:31 Pulse 91 03/07/21 13:31 Resp 20 03/07/21 13:31 BP 165/112 H 03/07/21 13:31 Pulse Ox 96 03/07/21 13:31 Body Mass Index 50.5 vital signs have been reviewed as normal and appeared to be correct. Blood pressure hypertensive at 200/110. Heart rate normal. Respiration rate normal. Temperature normal. Oxygen saturation normal. Appearance: Alert. Oriented X3. No acute distress. Head: Normal external exam. Normocephalic. Atraumatic. No Poe signs noted. No raccoon eyes noted Eyes: PERRLA. EOMI. Conjunctiva and sclera normal. Eyelids normal. ENT: EAC normal. TM's Normal. Pharynx normal. Uvula midline. Moist mucous membranes. No trismus noted. No drooling noted. No muffled voice noted. Neck: Normal inspection. Neck supple. FROM. No adenopathy. Thyroid Normal. No meningeal signs. No neck mass noted. CVS: Normal heart rate and rhythm. Heart sound normal. No murmurs noted. Pulses normal throughout. Respiratory: No respiratory distress. Painless inspiration. Breath sounds normal. No wheezes/rales/rhonchi noted. Chest nontender. No accessory muscle usage noted or decreased air movement noted. Abdomen: Soft and nontender. Bowel sounds normal in all 4 quadrants. No distention noted. No organomegaly noted. No visible injury noted. Back: No CVA tenderness. Full range of motion noted. Skin: Skin warm and dry. Normal skin color. Normal skin turgor. No rashes/lesions/lacerations noted. Extremities: No lower extremity edema. Extremities exhibit normal range of motion. Extremities nontender. Neuro: Oriented X 3. No motor deficit. No sensory deficit. Reflexes normal. Psych: Appearance grossly normal, well-kept, mental status normal, speech and movement normal, speech clear, patient appears very sad and anxious along with depressed. Is cooperative. Normal thought process. Normal thought content. Normal good insight. Judgment good. Course Course Course Narrative: 40-year-old female with a chronic mental problems presenting to the ED with complaints of chest pain while she was arguing with her boyfriend stating SI/HI/increased anxiety and depression no plan in place. - labs were obtained and all within normal limits. UA within normal limits no evidence of UTI. Patient positive for marijuana negative for all other drugs. Patient ET OH negative. Patient negative for gonorrhea chlamydia. Trichomonas is negative. Bacterial vaginosis and yeast are still pending at this time. Chest x-ray within normal limits no acute processes noted. EKG normal sinus rhythm no acute ischemic changes were noted. - therefore patient was brought into the Pod and was evaluated by the care team and they reported that the patient is denying any SI/HI/auditory visualizations thoughts of self-injury and I went back in to re-evaluate her and she reported that she felt better after she was back on her medications at all her labs and imaging were negative therefore we called her mother and her mother reported that she was safe to go back to her house and to return if any new or worsening symptoms therefore will DC home with instructions return if any new or worsening symptoms to follow up with primary care provider. Patient understands agrees with this plan. MDM - Psych Medical Records Attestation: I reviewed the patient's medical records. Lab Data Attestation: I reviewed the patient's lab results. Result diagrams: 03/07/21 10:43 03/07/21 10:44 Labs: Lab Results 03/07/21 03/07/21 03/07/21 Range/Units 10:42 10:43 10:43 WBC 14.7 H (4.8-10.8) X10*3/uL RBC 4.97 (4.20-5.50) X10*6/uL Hgb 12.8 (12.0-16.0) g/dl Hct 42.0 (37-47) % MCV 84.5 (80-98) fL MCH 25.8 L (27.0-33.0) pg MCHC 30.5 L (31.0-35.0) g/dl RDW 16.7 H (11.0-16.0) % Plt Count 286 (160-400) X10*3/uL MPV 8.6 L (9.4-12.3) fL Immature Gran % (Auto) 0.5 H (0.0-0.4) % Neut % (Auto) 74.5 H (45-73) % Lymph % (Auto) 18.4 L (20-40) % [place] % (Auto) 4.8 (2-11) % Eos % (Auto) 1.5 (0-4) % Baso % (Auto) 0.3 (0-2) % Lymph # (Auto) 2.7 (1.2-4.9) X10*3/uL [place] # (Auto) 0.7 (0.1-1.2) X10*3/uL Eos # (Auto) 0.2 (0.0-0.4) X10*3/uL Baso # (Auto) 0.1 (0.0-0.2) X10*3/uL Abs Immat Gran (auto) 0.08 H (0.00-0.03) X10*3/uL Absolute Neuts (auto) 10.9 H (2.0-8.3) X10*3/uL Absolute Nucleated RBC 0.000 (0.0-0.012) X10*3/uL Nucleated RBC % (auto) 0.0 (0.0-0.2) /100WBC PT (10.8-13.0) SEC INR (0.9-1.1) Sodium (135-145) mmol/L Potassium (3.3-5.1) mmol/L Chloride (96-108) mmol/L Carbon Dioxide (22-29) mmol/L Anion Gap (12-20) BUN (9-16) mg/dL Creatinine (0.5-1.4) mg/dL Estim Creat Clear Calc Estimated GFR Random Glucose (60-115) mg/dL Calcium (8.4-10.2) mg/dL Magnesium (1.6-2.6) mg/dL Total Bilirubin (0.0-1.0) mg/dL AST (5-31) U/L ALT (0-31) U/L Alkaline Phosphatase (39-117) U/L Troponin I High Sens 3.8 (<3.5-17.0) ng/L B-Natriuretic Peptide 11 (<100) pg/mL Total Protein (6.5-8.0) g/dL Albumin (3.5-5.0) g/dL Lipase (8-78) U/L Beta HCG, Quant mIU/mL Urine Color Urine Appearance Urine pH (5.0-8.0) Ur Specific [place] (1.005-1.025) Urine Protein (NEG-TRACE) MG/DL Urine Glucose (UA) (NEG) MG/DL Urine Ketones (NEG) MG/DL Urine Blood (NEG) Urine Nitrite (NEG) Ur Leukocyte Esterase (NEG) Urine RBC (0) /HPF Urine WBC (0-4) /HPF Ur Squamous Epith Cells /LPF Urine Bacteria /LPF Urine Opiates Screen (Not Detect) Ur Barbiturates Screen (Not Detect) Ur Phencyclidine Scrn (Not Detect) Ur Amphetamines Screen (Not Detect) U Benzodiazepines Scrn (Not Detect) Urine Cocaine Screen (Not Detect) U Marijuana (THC) Screen (Not Detect) Ethyl Alcohol mg/dL Chlam trachomat DNA PCR (Not Detect.) N.gonorrhoeae DNA (PCR) (Not Detect.) 03/07/21 03/07/21 03/07/21 Range/Units 10:44 10:44 10:44 WBC (4.8-10.8) X10*3/uL RBC (4.20-5.50) X10*6/uL Hgb (12.0-16.0) g/dl Hct (37-47) % MCV (80-98) fL MCH (27.0-33.0) pg MCHC (31.0-35.0) g/dl RDW (11.0-16.0) % Plt Count (160-400) X10*3/uL MPV (9.4-12.3) fL Immature Gran % (Auto) (0.0-0.4) % Neut % (Auto) (45-73) % Lymph % (Auto) (20-40) % [place] % (Auto) (2-11) % Eos % (Auto) (0-4) % Baso % (Auto) (0-2) % Lymph # (Auto) (1.2-4.9) X10*3/uL [place] # (Auto) (0.1-1.2) X10*3/uL Eos # (Auto) (0.0-0.4) X10*3/uL Baso # (Auto) (0.0-0.2) X10*3/uL Abs Immat Gran (auto) (0.00-0.03) X10*3/uL Absolute Neuts (auto) (2.0-8.3) X10*3/uL Absolute Nucleated RBC (0.0-0.012) X10*3/uL Nucleated RBC % (auto) (0.0-0.2) /100WBC PT 12.0 (10.8-13.0) SEC INR 1.0 (0.9-1.1) Sodium 141 (135-145) mmol/L Potassium 3.8 (3.3-5.1) mmol/L Chloride 108 (96-108) mmol/L Carbon Dioxide 24 (22-29) mmol/L Anion Gap 13 (12-20) BUN 13 (9-16) mg/dL Creatinine 0.67 (0.5-1.4) mg/dL Estim Creat Clear Calc 177.4 Estimated GFR > 60 Random Glucose 94 (60-115) mg/dL Calcium 8.5 (8.4-10.2) mg/dL Magnesium 2.1 (1.6-2.6) mg/dL Total Bilirubin 0.4 (0.0-1.0) mg/dL AST 13 (5-31) U/L ALT 19 (0-31) U/L Alkaline Phosphatase 88 (39-117) U/L Troponin I High Sens (<3.5-17.0) ng/L B-Natriuretic Peptide (<100) pg/mL Total Protein 6.8 (6.5-8.0) g/dL Albumin 3.6 (3.5-5.0) g/dL Lipase 29 (8-78) U/L Beta HCG, Quant < 2 mIU/mL Urine Color Urine Appearance Urine pH (5.0-8.0) Ur Specific [place] (1.005-1.025) Urine Protein (NEG-TRACE) MG/DL Urine Glucose (UA) (NEG) MG/DL Urine Ketones (NEG) MG/DL Urine Blood (NEG) Urine Nitrite (NEG) Ur Leukocyte Esterase (NEG) Urine RBC (0) /HPF Urine WBC (0-4) /HPF Ur Squamous Epith Cells /LPF Urine Bacteria /LPF Urine Opiates Screen (Not Detect) Ur Barbiturates Screen (Not Detect) Ur Phencyclidine Scrn (Not Detect) Ur Amphetamines Screen (Not Detect) U Benzodiazepines Scrn (Not Detect) Urine Cocaine Screen (Not Detect) U Marijuana (THC) Screen (Not Detect) Ethyl Alcohol mg/dL Chlam trachomat DNA PCR (Not Detect.) N.gonorrhoeae DNA (PCR) (Not Detect.) 03/07/21 03/07/21 03/07/21 Range/Units 10:44 11:02 11:02 WBC (4.8-10.8) X10*3/uL RBC (4.20-5.50) X10*6/uL Hgb (12.0-16.0) g/dl Hct (37-47) % MCV (80-98) fL MCH (27.0-33.0) pg MCHC (31.0-35.0) g/dl RDW (11.0-16.0) % Plt Count (160-400) X10*3/uL MPV (9.4-12.3) fL Immature Gran % (Auto) (0.0-0.4) % Neut % (Auto) (45-73) % Lymph % (Auto) (20-40) % [place] % (Auto) (2-11) % Eos % (Auto) (0-4) % Baso % (Auto) (0-2) % Lymph # (Auto) (1.2-4.9) X10*3/uL [place] # (Auto) (0.1-1.2) X10*3/uL Eos # (Auto) (0.0-0.4) X10*3/uL Baso # (Auto) (0.0-0.2) X10*3/uL Abs Immat Gran (auto) (0.00-0.03) X10*3/uL Absolute Neuts (auto) (2.0-8.3) X10*3/uL Absolute Nucleated RBC (0.0-0.012) X10*3/uL Nucleated RBC % (auto) (0.0-0.2) /100WBC PT (10.8-13.0) SEC INR (0.9-1.1) Sodium (135-145) mmol/L Potassium (3.3-5.1) mmol/L Chloride (96-108) mmol/L Carbon Dioxide (22-29) mmol/L Anion Gap (12-20) BUN (9-16) mg/dL Creatinine (0.5-1.4) mg/dL Estim Creat Clear Calc Estimated GFR Random Glucose (60-115) mg/dL Calcium (8.4-10.2) mg/dL Magnesium (1.6-2.6) mg/dL Total Bilirubin (0.0-1.0) mg/dL AST (5-31) U/L ALT (0-31) U/L Alkaline Phosphatase (39-117) U/L Troponin I High Sens (<3.5-17.0) ng/L B-Natriuretic Peptide (<100) pg/mL Total Protein (6.5-8.0) g/dL Albumin (3.5-5.0) g/dL Lipase (8-78) U/L Beta HCG, Quant mIU/mL Urine Color YELLOW Urine Appearance CLEAR Urine pH 6.0 (5.0-8.0) Ur Specific [place] >= 1.030 H (1.005-1.025) Urine Protein NEG (NEG-TRACE) MG/DL Urine Glucose (UA) NEG (NEG) MG/DL Urine Ketones NEG (NEG) MG/DL Urine Blood TRACE (NEG) Urine Nitrite NEG (NEG) Ur Leukocyte Esterase NEG (NEG) Urine RBC 0-2 (0) /HPF Urine WBC 0-2 (0-4) /HPF Ur Squamous Epith Cells TRACE /LPF Urine Bacteria NONE /LPF Urine Opiates Screen Not Detected (Not Detect) Ur Barbiturates Screen Not Detected (Not Detect) Ur Phencyclidine Scrn Not Detected (Not Detect) Ur Amphetamines Screen Not Detected (Not Detect) U Benzodiazepines Scrn Not Detected (Not Detect) Urine Cocaine Screen Not Detected (Not Detect) U Marijuana (THC) Screen POSITIVE H (Not Detect) Ethyl Alcohol < 10 mg/dL Chlam trachomat DNA PCR (Not Detect.) N.gonorrhoeae DNA (PCR) (Not Detect.) 03/07/21 Range/Units 11:02 WBC (4.8-10.8) X10*3/uL RBC (4.20-5.50) X10*6/uL Hgb (12.0-16.0) g/dl Hct (37-47) % MCV (80-98) fL MCH (27.0-33.0) pg MCHC (31.0-35.0) g/dl RDW (11.0-16.0) % Plt Count (160-400) X10*3/uL MPV (9.4-12.3) fL Immature Gran % (Auto) (0.0-0.4) % Neut % (Auto) (45-73) % Lymph % (Auto) (20-40) % [place] % (Auto) (2-11) % Eos % (Auto) (0-4) % Baso % (Auto) (0-2) % Lymph # (Auto) (1.2-4.9) X10*3/uL [place] # (Auto) (0.1-1.2) X10*3/uL Eos # (Auto) (0.0-0.4) X10*3/uL Baso # (Auto) (0.0-0.2) X10*3/uL Abs Immat Gran (auto) (0.00-0.03) X10*3/uL Absolute Neuts (auto) (2.0-8.3) X10*3/uL Absolute Nucleated RBC (0.0-0.012) X10*3/uL Nucleated RBC % (auto) (0.0-0.2) /100WBC PT (10.8-13.0) SEC INR (0.9-1.1) Sodium (135-145) mmol/L Potassium (3.3-5.1) mmol/L Chloride (96-108) mmol/L Carbon Dioxide (22-29) mmol/L Anion Gap (12-20) BUN (9-16) mg/dL Creatinine (0.5-1.4) mg/dL Estim Creat Clear Calc Estimated GFR Random Glucose (60-115) mg/dL Calcium (8.4-10.2) mg/dL Magnesium (1.6-2.6) mg/dL Total Bilirubin (0.0-1.0) mg/dL AST (5-31) U/L ALT (0-31) U/L Alkaline Phosphatase (39-117) U/L Troponin I High Sens (<3.5-17.0) ng/L B-Natriuretic Peptide (<100) pg/mL Total Protein (6.5-8.0) g/dL Albumin (3.5-5.0) g/dL Lipase (8-78) U/L Beta HCG, Quant mIU/mL Urine Color Urine Appearance Urine pH (5.0-8.0) Ur Specific [place] (1.005-1.025) Urine Protein (NEG-TRACE) MG/DL Urine Glucose (UA) (NEG) MG/DL Urine Ketones (NEG) MG/DL Urine Blood (NEG) Urine Nitrite (NEG) Ur Leukocyte Esterase (NEG) Urine RBC (0) /HPF Urine WBC (0-4) /HPF Ur Squamous Epith Cells /LPF Urine Bacteria /LPF Urine Opiates Screen (Not Detect) Ur Barbiturates Screen (Not Detect) Ur Phencyclidine Scrn (Not Detect) Ur Amphetamines Screen (Not Detect) U Benzodiazepines Scrn (Not Detect) Urine Cocaine Screen (Not Detect) U Marijuana (THC) Screen (Not Detect) Ethyl Alcohol mg/dL Chlam trachomat DNA PCR NOT DETECTED (Not Detect.) N.gonorrhoeae DNA (PCR) NOT DETECTED (Not Detect.) Imaging Data Chest x-ray: Attestation: I personally reviewed and interpreted this imaging study as follows: Radiologist's impression: FINDINGS: There are low lung volumes. Mild elevation right hemidiaphragm is chronic, similar to prior studies. The costophrenic sulci are clear. The heart is within normal size. The vascularity is normal. There is no pneumothorax or pneumomediastinum, no airspace consolidation or groundglass opacity. No visible acute bony abnormality. Again, there is bulky calcific tendinosis left shoulder. XR/XR chest 2V IMPRESSION: 1. Low lung volumes. No acute intrathoracic disease. 2. Calcific tendinosis left shoulder. ECG Data Attestation: I personally reviewed and interpreted this ECG as follows: ECG interpretation date: 03/07/21 ECG interpretation time: 10:30 Interpretation: Normal sinus rhythm with a ventricular rate of 83 with a normal GA interval with a normal QRS normal QT/QTC interval. No acute ischemic changes are noted. Similar compared to prior EKGs. Critical Care Time Critical Care Time Critical Care Time: Yes Total Critical Care Time: 60 Attestation: I personally attest to this time spent taking care of the patient Discharge Plan Discharge Clinical Impression: Anxiety, Herpes genitalis Patient Disposition: Home, Self-Care Instructions: Anxiety (ED) Additional Instructions: Please take your previously prescribed medications as previously prescribed. Return if any new or worsening symptoms follow-up with her primary care provider. You have pending lab results if any are positive you will be contacted. Prescriptions: New valacyclovir [Valtrex] 1 gram tablet 1,000 mg PO DAILY Qty: 30 RF: 0 No Action gabapentin 100 mg Capsule 100 mg PO TID RF: 0 bupropion HCl 100 mg Tablet Sustained-Release 12 Hr 100 mg PO DAILY RF: 0 perphenazine 8 mg Tablet 4 mg PO BID RF: 0 losartan 50 mg Tablet 50 mg PO DAILY RF: 0 topiramate [Topamax] 100 mg tablet 100 mg PO TID RF: 0 quetiapine [Seroquel] 300 mg tablet 300 mg PO BEDTIME RF: 0 clonidine HCl 0.1 mg tablet 0.1 mg PO BID@1600,2000 RF: 0 Referrals: [facility] [Primary Care Provider] - 2 days Interventions: ED Discharge Assessment Last Done: 03/07/21 13:40 Discharge Date/Time: 03/07/21 13:41 Print Language: Sammarinese
[2021-03-07] MEDS: Perphenazine 4 MG TABLET PO (12:46)
[2021-03-07 13:00] LABS: CT PCR NOT DETECTED (Not Detect.); NG PCR NOT DETECTED (Not Detect.)
[2021-03-07 13:31] VITALS: BP 165/112; PULSE 91; RESP 20; TEMP 36.6; O2SAT 96
--- NOTE | 2021-03-07 14:42 | MHC.CARE ---
Pt presented as calm and cooperative. Pt denies current SI/HI. CARE Team contacted Pts mother who had no safety concerns regarding discharge. Pts mother reported Pts boyfriend is deregulating to her and he is no longer in the home. Plan for Pt to be discharged
[2021-03-08 08:43] LABS: BV Int Neg Control Negative (Negative); BV Int Pos Control Positive (Positive)
== END 2021-03-07 13:41 | disposition home or self-care (01) ==
PROVIDERS: Physician Assistant Medical; Emergency Provider Emergency Medicine Emergency Medical Services
DX: F41.9 Anxiety disorder, unspecified (principal); A60.04 Herpesviral vulvovaginitis; M75.32 Calcific tendinitis of left shoulder; R07.9 Chest pain, unspecified; R45.851 Suicidal ideations; R45.850 Homicidal ideations; F20.9 Schizophrenia, unspecified; F31.9 Bipolar disorder, unspecified; I10 Essential (primary) hypertension; J45.909 Unspecified asthma, uncomplicated; F12.90 Cannabis use, unspecified, uncomplicated; Z91.14 Patient's other noncompliance with medication regimen
CPT/HCPCS: 36415; 71046; 80053; 80307; 80320; 81001; 83690; 83735; 83880; 84484; 84702; 85025; 85610; 87480; 87491; 87510; 87591; 87660; 93005; 99285

== ENCOUNTER 2021-03-17 20:30 | Emergency (ER) | payer MEDICAID, SELFPAY ==
--- NOTE | ~2021-03-17 | XR_ITS ---
EXAMINATION: XR CHEST CLINICAL INFORMATION: Shortness of breath. COMPARISON: Most recent chest radiograph dated 03/07/2021. TECHNIQUE: Frontal view of the chest was obtained. FINDINGS: The lungs are clear. The cardiomediastinal silhouette is normal in size. There is no pleural effusion or pneumothorax. No acute osseous abnormality. XR/XR chest 1V IMPRESSION: No acute cardiopulmonary findings.
[2021-03-17 20:34] VITALS: BP 199/119; PULSE 82; RESP 20; TEMP 36.9; O2SAT 100; BMI 61.2
[2021-03-17] MEDS: Albuterol/Iprat 2.5/0.5MG 3 ML AMPUL.NEB INHALE (20:45)
[2021-03-17 20:48] VITALS: PULSE 84; O2SAT 96
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
[2021-03-17] MEDS: LORazepam 1 MG TABLET 2 MG PO (21:00)
[2021-03-17 21:05] VITALS: BP 194/146; PULSE 85
[2021-03-17] MEDS: cloNIDine HCL 0.2 MG TABLET PO (21:05)
[2021-03-17 21:40] VITALS: BP 170/116; PULSE 81; RESP 16; O2SAT 98
[2021-03-17 22:13] VITALS: BP 162/90; PULSE 81; RESP 16
== END 2021-03-17 22:41 | disposition home or self-care (01) ==
PROVIDERS: Emergency Provider Internal Medicine
DX: F41.9 Anxiety disorder, unspecified (principal); J45.909 Unspecified asthma, uncomplicated; I10 Essential (primary) hypertension; F20.9 Schizophrenia, unspecified; F12.90 Cannabis use, unspecified, uncomplicated; Z79.899 Other long term (current) drug therapy
CPT/HCPCS: 71045; 94640; 99283; 99284

== ENCOUNTER 2021-03-22 11:21 | Emergency (ER) | payer MEDICAID, SELFPAY ==
--- NOTE | ~2021-03-22 | XR_ITS ---
EXAMINATION: XR CHEST CLINICAL INFORMATION: Chest pain COMPARISON: 03/17/2021 TECHNIQUE: Frontal view of the chest was obtained. FINDINGS: No focal consolidation, pulmonary edema, or pleural effusion. Stable cardiomediastinal silhouette. XR/XR chest 1V IMPRESSION: No acute cardiopulmonary findings.
[2021-03-22 11:26] VITALS: BP 173/93; PULSE 90; RESP 18; TEMP 36.9; O2SAT 96; BMI 63.3
--- NOTE | 2021-03-22 12:10 | ECG_ITS ---
Test Reason : CHEST PAIN Blood Pressure : / mmHG Vent. Rate : 083 BPM Atrial Rate : 083 BPM P-R Int : 146 ms QRS Dur : 080 ms QT Int : 374 ms P-R-T Axes : 032 011 035 degrees QTc Int : 439 ms Normal sinus rhythm Normal ECG When compared with ECG of 07-MAR-2021 10:30, No significant change was found Referred By: Minoo Villaseñor Electronically Signed By:Edin Solorzano
--- NOTE | 2021-03-22 12:19 | ED_ITS ---
HPI - General Adult General Chief complaint: General Medical Stated complaint: chest pain, n/v, vaccinated yesterday Time Seen by Provider: 03/22/21 12:10 History of Present Illness HPI narrative: Patient 40-year-old female with a history of diabetes, hypertension. History of smoking. Long history of psychiatric history. Patient had her 2nd shot of maternal a coronavirus vaccine yesterday. Complaining of chest pain. The pain is sharp. It is mid chest. It is worse with deep breath worse with touch. No fever no chills no cough no congestion or upper respiratory symptoms. Patient is from home. No nausea no vomiting. Pain worse with position. Worse with touch. Worse with deep breath. Related Data Home Medications Medication Instructions Recorded Confirmed clonidine HCl 0.1 mg tablet 0.1 mg PO BID@1600,199902/11/21 03/07/21 quetiapine 300 mg tablet 300 mg PO BEDTIME 02/11/21 03/07/21 topiramate 100 mg tablet 100 mg PO TID 02/11/21 03/07/21 bupropion HCl 100 mg PO DAILY 03/07/21 03/07/21 gabapentin 100 mg PO TID 03/07/21 03/07/21 losartan 50 mg PO DAILY 03/07/21 03/07/21 perphenazine 4 mg PO BID 03/07/21 03/07/21 Previous Rx's Medication Instructions Recorded valacyclovir [Valtrex] 1,000 mg PO DAILY #30 tab 03/07/21 Allergies Allergy/AdvReac Type Severity Reaction Status Date / Time Penicillins [PENICILLINS] Allergy Severe HIVES Verified 02/11/21 12:02 aspirin [ASA] Allergy Intermediate HIVES Verified 02/11/21 12:02 azithromycin [AZITHROMYCIN] Allergy Intermediate ITCHING Verified 02/11/21 12:02 erythromycin base Allergy Intermediate HIVES Verified 02/11/21 12:02 [Erythromycin Base] lamotrigine [From Lamictal] Allergy Intermediate ITCHING Verified 02/11/21 12:02 levofloxacin [From LEVAQUIN] Allergy Intermediate HIVES Verified 02/11/21 12:02 oxycodone [From Percocet] Allergy Intermediate HIVES Verified 02/11/21 12:02 penicillin V Allergy Unknown Itching Verified 02/11/21 12:02 soap [SOAP] Allergy Unknown UNKNOWN Verified 02/11/21 12:02 RXN TO IVORY AND JERGEN'S SOAP Lamictal Allergy Unknown hives Uncoded 01/26/21 04:11 Oxycodone (5MG) Allergy Unknown Itching Uncoded 01/26/21 04:11 Penicillin Allergy Unknown hives Uncoded 01/26/21 04:11 Lactose AdvReac Unknown intolerance Uncoded 01/26/21 04:11 Review of Systems Review of Systems: Constitutional: No Weight loss, No Fever, No Chills, No Night Sweats, No Fatigue, No Malaise ENT/Mouth: No Hearing loss, No Ear Pain, No Nasal Congestion, No Sinus Pain, No Hoarseness, No sore throat, No Rhinorrhea, No Swallowing Difficulty Eyes: No Eye Pain, No Swelling, No Redness, No Foreign Body, No Discharge, No Vi tom Changes Cardiovascular: Positive Chest Pain, No SOB, No Dyspnea on Exertion, No Orthopnea, No Edema, No Palpitations Respiratory: No Cough, No Sputum, No Wheezing, No Smoke Exposure, No Dyspnea Gastrointestinal: No Nausea, No Vomiting, No Diarrhea, No Constipation, No abdominal Pain, No Hematochezia, No Melena Genitourinary: no irregular bleeding, No Dysuria, No Urinary Frequency, No Hematuria, No Urinary Incontinence, No Urgency, No Flank Pain, No Urinary Flow Changes, No Hesitancy Musculoskeletal: No joint pain, No Myalgias, No Joint Swelling Skin: No Skin Lesions, No rash Neuro: No Weakness, No Numbness, No Paresthesias, No Loss of Consciousness, No Dizziness, No Headache Psych: No Anxiety/Panic, No Depression, No SI/HI/AH/VH, No Social Issues, Heme/Lymph: No Bruising, No Bleeding,No Lymphadenopathy Endocrine: No Polyuria, No Polydipsia, No Temperature Intolerance [facility] Past Medical History Attestation statement: The following information was validated with the patient. Medical History Abdominal pain Anxiety Asthma Bipolar 1 disorder Degenerative arthritis of knee, bilateral Hernia Hypertension Manic depression Morbid obesity Morbid obesity Schizophrenia Surgical History History of hernia surgery Social History Social History Alcohol intake: current Alcohol intake frequency: a few times a week Alcohol type: beer Smoked in Last 30 Days: No Substance Use Type: Marijuana Advance Directives: No Advance Directives Information Provided: Yes Patient : No Physical Exam Vital Signs: Vital Signs: Last Vital Signs Temp 98.7 F 03/22/21 12:46 Pulse 84 03/22/21 12:46 Resp 18 03/22/21 12:46 BP 161/99 H 03/22/21 12:46 Pulse Ox 96 03/22/21 12:46 Body Mass Index 63.3 Appearance: Alert. Oriented X3. No acute distress. Eyes: Pupils equal, round and reactive to light. ENT: Pharynx normal. Neck: Normal inspection. Neck supple. No lymph nodes noted. No crepitus CVS: Normal heart rate and rhythm. Pulses normal. Normal S1 and S2 Respiratory: No respiratory distress. Breath sounds normal. No Wheezing. No rales Abdomen: Soft and nontender. No rigidity. No distention. good BS x4 Skin: Skin warm and dry. Normal skin color. Normal skin turgor. Extremities: No lower extremity edema. Neurovascular intact to all extremities. No Lacerations. No Rash Neuro: Oriented X 3. No motor deficit. No sensory deficit. Moving all extermities. No slurred speech Medical Decision Making MDM Narrative Medical decision making narrative: Well-appearing no acute distress. Complain ing of chest pain that is mid chest. It is sharp. Nonradiating. This symptom happened after a midodrine a coronavirus vaccine. Will check CPK will check CRP for possibility of pericarditis. A D-dimer was checked as patient had worsening shortness of breath with deep breath. Will check 1 set of cardiac enzyme is patient multiple cardiac risk factors. In stable condition. Patient's CRP was elevated. But history of the same. Sed rate was ordered patient refused further lab testing understood the risk of pericarditis myocarditis. Leaving against medical advice will come back. Patient's chest x- ray was negative. No evidence of pneumonia pneumothorax. Patient's D-dimer is negative. No evidence for PE. Patient understood small risk of cardiac event still exist. Leaving against medical advice. Risks include severe disability secondary cardiac issues. Lab Data Result diagrams: 03/22/21 12:40 03/22/21 12:40 Labs: Lab Results 03/22/21 03/22/2121 Range/Units 12:40 12:40 12:40 WBC 14.5 H (4.8-10.8) X10*3/uL RBC 4.92 (4.20-5.50) X10*6/uL Hgb 12.6 (12.0-16.0) g/dl Hct 40.8 (37-47) % MCV 82.9 (80-98) fL MCH 25.6 L (27.0-33.0) pg MCHC 30.9 L (31.0-35.0) g/dl RDW 16.2 H (11.0-16.0) % Plt Count 302 (160-400) X10*3/uL MPV 8.5 L (9.4-12.3) fL Immature Gran % (Auto) 0.7 H (0.0-0.4) % Neut % (Auto) 68.6 (45-73) % Lymph % (Auto) 22.8 (20-40) % [place]hel % (Auto) 5.9 (2-11) % Eos % (Auto) 1.7 (0-4) % Baso % (Auto) 0.3 (0-2) % Lymph # (Auto) 3.3 (1.2-4.9) X10*3/uL [place] # (Auto) 0.9 (0.1-1.2) X10*3/uL Eos # (Auto) 0.3 (0.0-0.4) X10*3/uL Baso # (Auto) 0.0 (0.0-0.2) X10*3/uL Abs Immat Gran (auto) 0.10 H (0.00-0.03) X10*3/uL Absolute Neuts (auto) 10.0 H (2.0-8.3) X10*3/uL Absolute Nucleated RBC 0.000 (0.0-0.012) X10*3/uL Nucleated RBC % (auto) 0.0 (0.0-0.2) /100WBC D-Dimer NG/ML Sodium 138 (135-145) mmol/L Potassium 4.2 (3.3-5.1) mmol/L Chloride 106 (96-108) mmol/L Carbon Dioxide 25 (22-29) mmol/L Anion Gap 11 L (12-20) BUN 17 H (9-16) mg/dL Creatinine 0.67 (0.5-1.4) mg/dL Estim Creat Clear Calc 166.9 Estimated GFR > 60 Random Glucose 86 (60-115) mg/dL Calcium 8.9 (8.4-10.2) mg/dL Total Creatine Kinase 121 (26-140) U/L Troponin I High Sens < 3.5 (<3.5-17.0) ng/L C-Reactive Protein 5.74 H (< or = 0.50) mg/dL 03/22/21 Range/Units 12:40 WBC (4.8-10.8) X10*3/uL RBC (4.20-5.50) X10*6/uL Hgb (12.0-16.0) g/dl Hct (37-47) % MCV (80-98) fL MCH (27.0-33.0) pg MCHC (31.0-35.0) g/dl RDW (11.0-16.0) % Plt Count (160-400) X10*3/uL MPV (9.4-12.3) fL Immature Gran % (Auto) (0.0-0.4) % Neut % (Auto) (45-73) % Lymph % (Auto) (20-40) % [place] % (Auto) (2-11) % Eos % (Auto) (0-4) % Baso % (Auto) (0-2) % Lymph # (Auto) (1.2-4.9) X10*3/uL [place]hel # (Auto) (0.1-1.2) X10*3/uL Eos # (Auto) (0.0-0.4) X10*3/uL Baso # (Auto) (0.0-0.2) X10*3/uL Abs Immat Gran (auto) (0.00-0.03) X10*3/uL Absolute Neuts (auto) (2.0-8.3) X10*3/uL Absolute Nucleated RBC (0.0-0.012) X10*3/uL Nucleated RBC % (auto) (0.0-0.2) /100WBC D-Dimer < 200 NG/ML Sodium (135-145) mmol/L Potassium (3.3-5.1) mmol/L Chloride (96-108) mmol/L Carbon Dioxide (22-29) mmol/L Anion Gap (12-20) BUN (9-16) mg/dL Creatinine (0.5-1.4) mg/dL Estim Creat Clear Calc Estimated GFR Random Glucose (60-115) mg/dL Calcium (8.4-10.2) mg/dL Total Creatine Kinase (26-140) U/L Troponin I High Sens (<3.5-17.0) ng/L C-Reactive Protein (< or = 0.50) mg/dL ECG Data Interpretation: Sinus heart rate is 80 [place] QRS QT within normal limits is no acute ST segment elevation noted. Discharge Plan Discharge Clinical Impression: Chest pain Patient Disposition: Left Against Medical Advice Instructions: Chest Pain (ED), Against Medical Advice (ED) Prescriptions: No Action gabapentin 100 mg Capsule 100 mg PO TID RF: 0 bupropion HCl 100 mg Tablet Sustained-Release 12 Hr 100 mg PO DAILY RF: 0 perphenazine 8 mg Tablet 4 mg PO BID RF: 0 losartan 50 mg Tablet 50 mg PO DAILY RF: 0 valacyclovir [Valtrex] 1 gram tablet 1,000 mg PO DAILY Qty: 30 RF: 0 topiramate [Topamax] 100 mg tablet 100 mg PO TID RF: 0 quetiapine [Seroquel] 300 mg tablet 300 mg PO BEDTIME RF: 0 clonidine HCl 0.1 mg tablet 0.1 mg PO BID@1600,2000 RF: 0 Referrals: Physician,Unknown [Primary Care Provider] - 1 day
[2021-03-22 12:46] VITALS: BP 161/99; PULSE 84; RESP 18; TEMP 37.1; O2SAT 96
[2021-03-22 13:10] LABS: MANUAL DIFF FLAG NO
[2021-03-22 13:12] LABS: Basophils Percent Auto 0.3 % (0-2); Eosinophils Absolute Auto 0.3 X10*3/uL (0.0-0.4); Eosinophils Percent Auto 1.7 % (0-4); Hematocrit 40.8 % (37-47); Hemoglobin 12.6 g/dl (12.0-16.0); Imm Gran Pct Auto 0.7 % (0.0-0.4); Lymphocytes Absolute Auto 3.3 X10*3/uL (1.2-4.9); Lymphocytes Percent Auto 22.8 % (20-40); Mean Corpuscular HGB Conc 30.9 g/dl (31.0-35.0); Mean Corpuscular Hemoglobin 25.6 pg (27.0-33.0); Mean Corpuscular Volume 82.9 fL (80-98); Mean Platelet Volume 8.5 fL (9.4-12.3); Monocytes Absolute Auto 0.9 X10*3/uL (0.1-1.2); Monocytes Percent Auto 5.9 % (2-11); Neutrophils Percent Auto 68.6 % (45-73); Platelet Count 302 X10*3/uL (160-400); Red Blood Count 4.92 X10*6/uL (4.20-5.50); Red Cell Distribution Width 16.2 % (11.0-16.0); White Blood Count 14.5 X10*3/uL (4.8-10.8)
[2021-03-22 13:25] LABS: D Dimer < 200 NG/ML
[2021-03-22 13:41] LABS: Anion Gap 11 (12-20); Blood Urea Nitrogen 17 mg/dL (9-16); C Reactive Protein 5.74 mg/dL (< or = 0.50); Calcium 8.9 mg/dL (8.4-10.2); Carbon Dioxide 25 mmol/L (22-29); Chloride 106 mmol/L (96-108); Creatinine Clr Calc Pharmacy 166.9; Estimated Glomerular Filt Rate > 60; Glucose Random 86 mg/dL (60-115); Potassium 4.2 mmol/L (3.3-5.1); Sodium 138 mmol/L (135-145)
[2021-03-22 13:48] LABS: Troponin-I High Sensitivity < 3.5 ng/L (<3.5-17.0)
--- NOTE | 2021-03-22 14:10 | PC.NURSE ---
pt refusing more lab work. pt aware of plan to dc ama.
== END 2021-03-22 14:15 | disposition left against medical advice (07) ==
PROVIDERS: Emergency Provider Emergency Medicine Emergency Medical Services
DX: R07.9 Chest pain, unspecified (principal); E11.9 Type 2 diabetes mellitus without complications; I10 Essential (primary) hypertension; F31.9 Bipolar disorder, unspecified; E66.01 Morbid (severe) obesity due to excess calories; F20.9 Schizophrenia, unspecified; F41.9 Anxiety disorder, unspecified; F17.210 Nicotine dependence, cigarettes, uncomplicated; F12.90 Cannabis use, unspecified, uncomplicated
CPT/HCPCS: 36415; 71045; 80048; 82550; 84484; 85025; 85379; 86140; 93005; 99284

== ENCOUNTER 2021-03-27 06:57 | Emergency (ER) | payer MEDICAID, SELFPAY ==
--- NOTE | ~2021-03-27 | CT_ITS ---
EXAMINATION: CT CHEST WITH CONTRAST CLINICAL INFORMATION: Right axilla pain. Right arm swelling. COMPARISON: Previous chest x-ray most recent 03/22/[address] August 2020 TECHNIQUE: Multidetector volumetric CT imaging of the chest was obtained after the administration of 65 mL of Omnipaque 350 intravenous contrast without immediate adverse reactions. Axial MIP volume rendering provided. Sagittal and coronal reformatted images were obtained. This CT examination was performed using dose optimization techniques as appropriate, variously including the following: *Automated exposure control *Adjustment of mA and/or kV according to patient size (this includes techniques or standardized protocols for targeted exams where dose is matched to indication/reason for exam; i.e. 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 There is a 2 mm peripheral right upper lobe nodule axial image 41 series 5. There is a 3 mm peripheral or subpleural right lower lobe nodule axial 5. There is a 2 mm peripheral or subpleural right lower lobe nodule axial image 262 series 5. There are 3 mm peripheral or subpleural right upper and right lower lobe nodules axial image 271 series 5. There is a 4 mm peripheral right lower lobe nodule axial image 310 series 5. There is a 2 mm peripheral left lower lobe nodule axial image 310 series 5. There is subsegmental atelectasis at the left lung base. MEDIASTINUM: The mediastinum is normal. PLEURA: There is no pleural effusion. No pleural mass or thickening. AXILLA: There are enlarged right axillary lymph nodes. Largest lymph node measures 2.5 cm. There is stranding of the fat in the right axilla. No left axillary lymphadenopathy is seen. No chest wall mass is seen. There is mild stranding of the subcutaneous fat in the right upper medial chest. UPPER ABDOMEN: The liver is low in attenuation suggestive of fatty infiltration. OSSEOUS STRUCTURES: There are mild degenerative changes of the spine. There is a small soft tissue calcification adjacent to the right shoulder joint. CT/CT chest w con IMPRESSION: Enlarged right axillary lymph nodes and stranding of the fat in the right axilla. Infectious, inflammatory and neoplastic process should be considered. Small pulmonary nodules, largest measuring 4 mm. According to the UPDATED 2017 Fleischner Society recommendations, the advised follow-up imaging for less than 6 mm nodule: Low risk, no chest CT follow-up and high risk, optional chest CT follow-up in one year. Fatty liver.
--- NOTE | ~2021-03-27 | US_ITS ---
EXAMINATION: US VENOUS WITH DOPPLER UPPER EXTREMITY, RIGHT CLINICAL INFORMATION: Swelling and pain COMPARISON: Previous exam November 2020 TECHNIQUE: Ultrasound of the upper extremity is performed using compression sonography and color and pulse Doppler flow with assessment of augmentation of flow. There is also imaging and Doppler assessment of the jugular and subclavian veins. Spectral analysis with color-flow imaging is performed. FINDINGS: The right internal jugular, subclavian, axillary, brachial, basilic and cephalic veins are patent. There is no evidence of DVT. US/US venous duplex UE RT IMPRESSION: No DVT demonstrated in the right upper extremity
[2021-03-27 07:06] VITALS: BP 157/100; PULSE 86; RESP 16; TEMP 37.1; O2SAT 94; BMI 63.2
--- NOTE | 2021-03-27 07:21 | ED.EXTPRO ---
HPI - Extremity Problem General Chief complaint: Extremity Injury, Upper Stated complaint: arm swelling Time Seen by Provider: 03/27/21 07:20 Source: patient and EMS Mode of arrival: EMS History of Present Illness MD Complaint: extremity pain and extremity swelling Onset (ago): day(s) (2) Pain Consistency: constant Location: right and upper extremity Quality: aching Radiation: proximal Relieving factors: nothing Exacerbating factors: nothing Associated symptoms: other (arm is swollen) Context: other (denies trauma/any recent procedure to her arm) Related Data Home Medications Medication Instructions Recorded Confirmed clonidine HCl 0.1 mg tablet 0.1 mg PO BID@1600,199902/11/21 03/07/21 quetiapine 300 mg tablet 300 mg PO BEDTIME 02/11/21 03/07/21 topiramate 100 mg tablet 100 mg PO TID 02/11/21 03/07/21 bupropion HCl 100 mg PO DAILY 03/07/21 03/07/21 gabapentin 100 mg PO TID 03/07/21 03/07/21 losartan 50 mg PO DAILY 03/07/21 03/07/21 perphenazine 4 mg PO BID 03/07/21 03/07/21 Previous Rx's Medication Instructions Recorded valacyclovir [Valtrex] 1,000 mg PO DAILY #30 tab 03/07/21 cephalexin 500 mg PO BID 7 Days #14 cap 03/27/21 cyclobenzaprine 10 mg PO TID PRN #14 tab 03/27/21 cyclobenzaprine 10 mg PO TID PRN #14 tab 03/27/21 Allergies Allergy/AdvReac Type Severity Reaction Status Date / Time Penicillins [PENICILLINS] Allergy Severe HIVES Verified 02/11/21 12:02 aspirin [ASA] Allergy Intermediate HIVES Verified 02/11/21 12:02 azithromycin [AZITHROMYCIN] Allergy Intermediate ITCHING Verified 02/11/21 12:02 erythromycin base Allergy Intermediate HIVES Verified 02/11/21 12:02 [Erythromycin Base] lamotrigine [From Lamictal] Allergy Intermediate ITCHING Verified 02/11/21 12:02 levofloxacin [From LEVAQUIN] Allergy Intermediate HIVES Verified 02/11/21 12:02 oxycodone [From Percocet] Allergy Intermediate HIVES Verified 02/11/21 12:02 penicillin V Allergy Unknown Itching Verified 02/11/21 12:02 soap [SOAP] Allergy Unknown UNKNOWN Verified 02/11/21 12:02 RXN TO IVORY AND JERGEN'S SOAP doxycycline Allergy Itching Verified 03/27/21 12:14 Lamictal Allergy Unknown hives Uncoded 01/26/21 04:11 Oxycodone (5MG) Allergy Unknown Itching Uncoded 01/26/21 04:11 Penicillin Allergy Unknown hives Uncoded 01/26/21 04:11 Lactose AdvReac Unknown intolerance Uncoded 01/26/21 04:11 Review of Systems Review of Systems: Constitutional : No Fever, No Chills ENT/Mouth : No Ear Pain, No Hoarseness, No sore throat Eyes: No Eye Pain, No Swelling, No Redness, No Foreign Body Cardiovascular : No Chest Pain, No SOB Respiratory : No Cough, No Dyspnea Gastrointestinal : No Nausea, No Vomiting, No Diarrhea, No abdominal Pain Genitourinary : No Dysuria, No Hematuria Musculoskeletal : positive joint pain, No Myalgias, pos extrenity Swelling Skin : No Skin lacerations, No rash Neuro : No Weakness, No Numbness, No Loss of Consciousness, No Dizziness, No Headache Psych : No Anxiety/Panic, No Depression Heme/Lymph: no easy bruising, no Lymphadenopathy Endocrine : No Polyuria, No Polydipsia All other systems reviewed and are negative PMFSH Past Medical History Attestation statement: The following information was validated with the patient. Medical History Abdominal pain Anxiety Asthma Bipolar 1 disorder Degenerative arthritis of knee, bilateral Hernia Hypertension Manic depression Morbid obesity Morbid obesity Schizophrenia Surgical History History of hernia surgery Social History Social History Alcohol intake: current Alcohol intake frequency: a few times a week Alcohol type: beer Patient Tobacco Use Status: Current everyday Tobacco user Smoked in Last 30 Days: Yes Use of substances other than those prescribed or required for medical reasons: Yes Substance Use Type: Marijuana Substance Use Frequency: Daily Advance Directives: No Advance Directives Information Provided: No Patient : No Physical Exam Vital Signs: Vital Signs: Last Vital Signs Temp 97.8 F 03/27/21 11:52 Pulse 84 03/27/21 11:52 Resp 20 03/27/21 11:52 BP 149/64 H 03/27/21 11:52 Pulse Ox 94 03/27/21 11:52 Body Mass Index 63.2 Appearance: Alert. Oriented X3. No acute distress. Eyes: Pupils equal, round and reactive to light. ENT: Pharynx normal. Neck: Normal inspection. Neck supple. CVS: Normal heart rate and rhythm. Pulses normal. Respiratory: No respiratory distress. Breath sounds normal. Abdomen: Soft and nontender. Skin: Skin warm and dry. Normal skin color. Normal skin turgor. Extremities: No lower extremity edema. No calf ttp RUE SILT and CMS intact 2+ radial pulse, axiall normal no signs of infection or mass, has swelling of RUE from mostly forearm down mild no erythema/warmth Neuro: Oriented X 3. No motor deficit. No sensory deficit. Course Course Course Narrative: no findings on US c/o severe R axillary pain but no mass felt somewhat limited due to body habitus, CT chest for mass ordered, PO ativan for anxiety/spasm possible infection though no overlying cellulitis will start on PO doxycycline denies cat scratch or owning a cat MDM - Extremity (Nontraumatic) MDM Narrative Medical decision making narrative: 40 yo female with asthma, bronchitis, obesity, bipolar at this time c/o atraumatic RUE pain and swelling, NV intact, no signs of infection - will obtain basic labs and US to evaluate for DVT - no known risk factors denies procedures and denies OCPs Lab Data Result diagrams: 03/27/21 08:07 03/27/21 08:07 Labs: Lab Results 03/27/21 03/27/21 03/27/21 Range/Units 08:07 08:07 08:07 WBC 12.8 H (4.8-10.8) X10*3/uL RBC 4.83 (4.20-5.50) X10*6/uL Hgb 12.3 (12.0-16.0) g/dl Hct 39.8 (37-47) % MCV 82.4 (80-98) fL MCH 25.5 L (27.0-33.0) pg MCHC 30.9 L (31.0-35.0) g/dl RDW 16.2 H (11.0-16.0) % Plt Count 301 (160-400) X10*3/uL MPV 8.3 L (9.4-12.3) fL Immature Gran % (Auto) 0.6 H (0.0-0.4) % Neut % (Auto) 69.6 (45-73) % Lymph % (Auto) 20.7 (20-40) % Pickett % (Auto) 6.1 (2-11) % Eos % (Auto) 2.6 (0-4) % Baso % (Auto) 0.4 (0-2) % Lymph # (Auto) 2.7 (1.2-4.9) X10*3/uL Pickett # (Auto) 0.8 (0.1-1.2) X10*3/uL Eos # (Auto) 0.3 (0.0-0.4) X10*3/uL Baso # (Auto) 0.1 (0.0-0.2) X10*3/uL Abs Immat Gran (auto) 0.08 H (0.00-0.03) X10*3/uL Absolute Neuts (auto) 8.9 H (2.0-8.3) X10*3/uL Absolute Nucleated RBC 0.000 (0.0-0.012) X10*3/uL Nucleated RBC % (auto) 0.0 (0.0-0.2) /100WBC PT 11.6 (10.8-13.0) SEC INR 1.0 (0.9-1.1) APTT 30.9 (24.1-38.0) SEC Sodium 139 (135-145) mmol/L Potassium 3.8 (3.3-5.1) mmol/L Chloride 105 (96-108) mmol/L Carbon Dioxide 27 (22-29) mmol/L Anion Gap 11 L (12-20) BUN 16 (9-16) mg/dL Creatinine 0.74 (0.5-1.4) mg/dL Estim Creat Clear Calc 150.9 Estimated GFR > 60 Random Glucose 107 (60-115) mg/dL Calcium 8.5 (8.4-10.2) mg/dL Beta HCG, Quant < 2 mIU/mL Discharge Plan Discharge Clinical Impression: Arm swelling, Lymphadenopathy Patient Disposition: Home, Self-Care Instructions: Adenitis (ED) Additional Instructions: Enlarged right axillary lymph nodes and stranding of the fat in the right axilla. Infectious, inflammatory and neoplastic process should be considered. Small pulmonary nodules, largest measuring 4 mm. According to the UPDATED 2017 Fleischner Society recommendations, the advised follow-up imaging for less than 6 mm nodule: Low risk, no chest CT follow-up and high risk, optional chest CT follow-up in one year. Fatty liver. YOUR PRIMARY CARE NEEDS TO FOLLOW UP ON THIS - IF IT DOES NOT IMPROVE WITH ANTIBIOTICS YOU WILL NEED A BIOPSY OF THE NODES Prescriptions: New cyclobenzaprine 10 mg tablet 10 mg PO TID PRN (Reason: muscle spasm) Qty: 14 RF: 0 cyclobenzaprine 10 mg tablet 10 mg PO TID PRN (Reason: muscle spasm) Qty: 14 RF: 0 cephalexin 500 mg capsule 500 mg PO BID 7 Days Qty: 14 RF: 0 No Action gabapentin 100 mg Capsule 100 mg PO TID RF: 0 bupropion HCl 100 mg Tablet Sustained-Release 12 Hr 100 mg PO DAILY RF: 0 perphenazine 8 mg Tablet 4 mg PO BID RF: 0 losartan 50 mg Tablet 50 mg PO DAILY RF: 0 valacyclovir [Valtrex] 1 gram tablet 1,000 mg PO DAILY Qty: 30 RF: 0 topiramate [Topamax] 100 mg tablet 100 mg PO TID RF: 0 quetiapine [Seroquel] 300 mg tablet 300 mg PO BEDTIME RF: 0 clonidine HCl 0.1 mg tablet 0.1 mg PO BID@1600,2000 RF: 0 Referrals: [facility] [Primary Care Provider] - 1 day Interventions: ED Discharge Assessment Last Done: 03/27/21 12:42 Discharge Date/Time: 03/27/21 12:42
[2021-03-27 07:28] VITALS: BP 151/82; PULSE 85; TEMP 36.6; O2SAT 95
--- NOTE | 2021-03-27 08:10 | PC.NURSE ---
Labs sent. Patient resting on stretcher, requesting food.
[2021-03-27 08:16] LABS: MANUAL DIFF FLAG NO
[2021-03-27 08:17] LABS: Basophils Absolute Auto 0.1 X10*3/uL (0.0-0.2); Basophils Percent Auto 0.4 % (0-2); Eosinophils Absolute Auto 0.3 X10*3/uL (0.0-0.4); Eosinophils Percent Auto 2.6 % (0-4); Hematocrit 39.8 % (37-47); Hemoglobin 12.3 g/dl (12.0-16.0); Imm Gran Abs Auto 0.08 X10*3/uL (0.00-0.03); Imm Gran Pct Auto 0.6 % (0.0-0.4); Lymphocytes Absolute Auto 2.7 X10*3/uL (1.2-4.9); Lymphocytes Percent Auto 20.7 % (20-40); Mean Corpuscular HGB Conc 30.9 g/dl (31.0-35.0); Mean Corpuscular Hemoglobin 25.5 pg (27.0-33.0); Mean Corpuscular Volume 82.4 fL (80-98); Mean Platelet Volume 8.3 fL (9.4-12.3); Monocytes Absolute Auto 0.8 X10*3/uL (0.1-1.2); Monocytes Percent Auto 6.1 % (2-11); Neutrophils Absolute Auto 8.9 X10*3/uL (2.0-8.3); Neutrophils Percent Auto 69.6 % (45-73); Platelet Count 301 X10*3/uL (160-400); Red Blood Count 4.83 X10*6/uL (4.20-5.50); Red Cell Distribution Width 16.2 % (11.0-16.0); White Blood Count 12.8 X10*3/uL (4.8-10.8)
[2021-03-27 08:23] LABS: Prothrombin Time 11.6 SEC (10.8-13.0)
[2021-03-27 08:25] LABS: Partial Thromboplastin Time 30.9 SEC (24.1-38.0)
--- NOTE | 2021-03-27 08:41 | PC.NURSE ---
Pt transported to US on stretcher.
[2021-03-27 08:42] LABS: Anion Gap 11 (12-20); Blood Urea Nitrogen 16 mg/dL (9-16); Calcium 8.5 mg/dL (8.4-10.2); Carbon Dioxide 27 mmol/L (22-29); Chloride 105 mmol/L (96-108); Creatinine Clr Calc Pharmacy 150.9; Estimated Glomerular Filt Rate > 60; Glucose Random 107 mg/dL (60-115); Potassium 3.8 mmol/L (3.3-5.1); Sodium 139 mmol/L (135-145)
[2021-03-27 08:50] LABS: HCG Quantitative < 2 mIU/mL
[2021-03-27 09:41] VITALS: BP 151/114; PULSE 86; RESP 14; O2SAT 96
[2021-03-27] MEDS: iohexoL 350 MG/ML 100 ML INFUS..BTL IV (11:24)
[2021-03-27 11:52] VITALS: BP 149/64; PULSE 84; RESP 20; TEMP 36.6; O2SAT 94
[2021-03-27] MEDS: cephALEXin 500 MG CAPSULE PO (12:19)
--- NOTE | 2021-03-28 07:29 | ECG_ITS ---
Test Reason : CHEST PAIN Blood Pressure : / mmHG Vent. Rate : 086 BPM Atrial Rate : 086 BPM P-R Int : 152 ms QRS Dur : 082 ms QT Int : 376 ms P-R-T Axes : 028 010 048 degrees QTc Int : 449 ms Normal sinus rhythm Possible Anterior infarct , age undetermined Abnormal ECG When compared with ECG of 22-MAR-2021 12:45, No significant change was found Referred By: Radha Pak Electronically Signed By:TRINO NIETO MD
== END 2021-03-27 12:42 | disposition home or self-care (01) ==
PROVIDERS: Emergency Provider Emergency Medicine
DX: R22.31 Localized swelling, mass and lump, right upper limb (principal); M79.601 Pain in right arm; R59.1 Generalized enlarged lymph nodes
CPT/HCPCS: 36415; 71260; 80048; 84702; 85025; 85610; 85730; 93005; 93971; 99284; Q9967

== ENCOUNTER 2021-03-28 21:41 | Emergency (ER) | payer MEDICAID, SELFPAY ==
--- NOTE | ~2021-03-28 | XR_ITS ---
EXAMINATION: XR CHEST CLINICAL INFORMATION: Chest pain. COMPARISON: None TECHNIQUE: Frontal view of the chest was obtained. FINDINGS: No significant abnormality is noted involving the heart, lungs, mediastinum, bony thorax or soft tissues. XR/XR chest 1V IMPRESSION: Unremarkable chest exam
[2021-03-28 21:46] VITALS: BP 134/80; PULSE 84; O2SAT 96
[2021-03-28 21:54] VITALS: BP 177/97; PULSE 88; RESP 22; TEMP 36.8; O2SAT 95; BMI 63.1
--- NOTE | 2021-03-28 22:13 | ED.CHESTPAIN ---
HPI - Chest Pain General Chief Complaint: Chest Pain Stated Complaint: CHEST PAIN Time Seen by Provider: 03/28/21 22:11 History of Present Illness HPI narrative: Patient is a 40-year-old female presents today with having chest pain. The chest pain is mid chest. Start approximately 45 minutes prior. It is sharp. Denies any radiation. Patient had shoulder and arm pain at 16:00 today. It is on the left side. It is worse with movement. Did not have chest pain at the time. The arm pain is very specific with movement of the left shoulder. Patient developed the chest pain about 45 minutes prior. Not associated with shortness of breath. No diaphoresis. No leg swelling. She does have a history of pre diabetes. History of smoking. History of hypertension. Patient is from home. There is no leg swelling. No history of blood clots in the past. Patient has a long psychiatric history. No fever no chills no cough no congestion or upper respiratory symptoms. No diaphoresis. Related Data Home Medications Medication Instructions Recorded Confirmed clonidine HCl 0.1 mg tablet 0.1 mg PO BID@1600,199902/11/21 03/07/21 quetiapine 300 mg tablet 300 mg PO BEDTIME 02/11/21 03/07/21 topiramate 100 mg tablet 100 mg PO TID 02/11/21 03/07/21 bupropion HCl 100 mg PO DAILY 03/07/21 03/07/21 gabapentin 100 mg PO TID 03/07/21 03/07/21 losartan 50 mg PO DAILY 03/07/21 03/07/21 perphenazine 4 mg PO BID 03/07/21 03/07/21 Previous Rx's Medication Instructions Recorded valacyclovir [Valtrex] 1,000 mg PO DAILY #30 tab 03/07/21 cephalexin 500 mg PO BID 7 Days #14 cap 03/27/21 cyclobenzaprine 10 mg PO TID PRN #14 tab 03/27/21 cyclobenzaprine 10 mg PO TID PRN #14 tab 03/27/21 Allergies Allergy/AdvReac Type Severity Reaction Status Date / Time Penicillins [PENICILLINS] Allergy Severe HIVES Verified 02/11/21 12:02 aspirin [ASA] Allergy Intermediate HIVES Verified 02/11/21 12:02 azithromycin [AZITHROMYCIN] Allergy Intermediate ITCHING Verified 02/11/21 12:02 erythromycin base Allergy Intermediate HIVES Verified 02/11/21 12:02 [Erythromycin Base] lamotrigine [From Lamictal] Allergy Intermediate ITCHING Verified 02/11/21 12:02 levofloxacin [From LEVAQUIN] Allergy Intermediate HIVES Verified 02/11/21 12:02 oxycodone [From Percocet] Allergy Intermediate HIVES Verified 02/11/21 12:02 penicillin V Allergy Unknown Itching Verified 02/11/21 12:02 soap [SOAP] Allergy Unknown UNKNOWN Verified 02/11/21 12:02 RXN TO IVORY AND JERGEN'S SOAP doxycycline Allergy Itching Verified 03/27/21 12:14 Lamictal Allergy Unknown hives Uncoded 01/26/21 04:11 Oxycodone (5MG) Allergy Unknown Itching Uncoded 01/26/21 04:11 Penicillin Allergy Unknown hives Uncoded 01/26/21 04:11 Lactose AdvReac Unknown intolerance Uncoded 01/26/21 04:11 Review of Systems Review of Systems: Constitutional: No Weight loss, No Fever, No Chills, No Night Sweats, No Fatigue, No Malaise ENT/Mouth: No Hearing loss, No Ear Pain, No Nasal Congestion, No Sinus Pain, No Hoarseness, No sore throat, No Rhinorrhea, No Swallowing Difficulty Eyes: No Eye Pain, No Swelling, No Redness, No Foreign Body, No Discharge, No Vision Changes Cardiovascular: Positive Chest Pain, No SOB, No Dyspnea on Exertion, No Orthopnea, No Edema, No Palpitations Respiratory: No Cough, No Sputum, No Wheezing, No Smoke Exposure, No Dyspnea Gastrointestinal: No Nausea, No Vomiting, No Diarrhea, No Constipation, No abdominal Pain, No Hematochezia, No Melena Genitourinary: no irregular bleeding, No Dysuria, No Urinary Frequency, No Hematuria, No Urinary Incontinence, No Urgency, No Flank Pain, No Urinary Flow Changes, No Hesitancy Musculoskeletal: No joint pain, No Myalgias, No Joint Swelling Skin: No Skin Lesions, No rash Neuro: No Weakness, No Numbness, No Paresthesias, No Loss of Consciousness, No Dizziness, No Headache Psych: No Anxiety/Panic, No Depression, No SI/HI/AH/VH, No Social Issues, Heme/Lymph: No Bruising, No Bleeding,No Lymphadenopathy Endocrine: No Polyuria, No Polydipsia, No Temperature Intolerance [facility] Past Medical History Attestation statement: The following information was validated with the patient. Medical History Abdominal pain Anxiety Asthma Bipolar 1 disorder Degenerative arthritis of knee, bilateral Hernia Hypertension Manic depression Morbid obesity Morbid obesity Schizophrenia Surgical History History of hernia surgery Social History Social History Alcohol intake: current Alcohol intake frequency: a few times a week Alcohol type: beer Patient Tobacco Use Status: Current everyday Tobacco user Use of substances other than those prescribed or required for medical reasons: Yes Substance Use Type: Marijuana Advance Directives: No Advance Directives Information Provided: Yes Patient : No Physical Exam Vital Signs: Vital Signs: Last Vital Signs Temp 98.3 F 03/28/21 21:54 Pulse 85 03/28/21 22:27 Resp 18 03/28/21 22:27 BP 183/87 H 03/28/21 22:27 Pulse Ox 97 03/28/21 22:27 Body Mass Index 63.1 Appearance: Alert. Oriented X3. No acute distress. Eyes: Pupils equal, round and reactive to light. ENT: Pharynx normal. Neck: Normal inspection. Neck supple. No lymph nodes noted. No crepitus CVS: Normal heart rate and rhythm. Pulses normal. Normal S1 and S2 Respiratory: No respiratory distress. Breath sounds normal. No Wheezing. No rales Abdomen: Soft and nontender. No rigidity. No distention. good BS x4 Skin: Skin warm and dry. Normal skin color. Normal skin turgor. Extremities: No lower extremity edema. Neurovascular intact to all extremities. No Lacerations. No Rash Neuro: Oriented X 3. No motor deficit. No sensory deficit. Moving all extermities. No slurred speech MDM - Chest Pain MDM Narrative Medical decision making narrative: Patient is 40 years old. Chest pain is atypical. Started approximately 1 hour prior. Will get 2 sets of cardiac enzymes. Will monitor closely. Will get labs and x-ray. There is no risk for PE. Patient's pain is atypical she is 40. She has 2 risk factors. If her troponin is negative patient's heart score is less than 3. Will have patient follow-up outpatient. Patient's arm pain question secondary to cervical radiculopathy it started prior to the chest pain is very positional. Will monitor closely. Started on Motrin here in the emergency department in no distress. Patient's cardiac enzyme was negative. She eloped prior to all the electrolytes can come back. Apparently the instrument is down. Needing additional time. Patient eloped from the emergency department. Lab Data Result diagrams: 03/28/21 23:20 03/28/21 23:20 Labs: Lab Results 03/28/21 03/28/21 03/28/21 Range/Units 23:20 23:20 23:20 WBC 13.4 H (4.8-10.8) X10*3/uL RBC 4.77 (4.20-5.50) X10*6/uL Hgb 12.0 (12.0-16.0) g/dl Hct 39.4 (37-47) % MCV 82.6 (80-98) fL MCH 25.2 L (27.0-33.0) pg MCHC 30.5 L (31.0-35.0) g/dl RDW 16.1 H (11.0-16.0) % Plt Count 292 (160-400) X10*3/uL MPV 8.5 L (9.4-12.3) fL Immature Gran % (Auto) 0.6 H (0.0-0.4) % Neut % (Auto) 69.2 (45-73) % Lymph % (Auto) 21.7 (20-40) % Dewitt % (Auto) 5.7 (2-11) % Eos % (Auto) 2.4 (0-4) % Baso % (Auto) 0.4 (0-2) % Lymph # (Auto) 2.9 (1.2-4.9) X10*3/uL Dewitt # (Auto) 0.8 (0.1-1.2) X10*3/uL Eos # (Auto) 0.3 (0.0-0.4) X10*3/uL Baso # (Auto) 0.1 (0.0-0.2) X10*3/uL Abs Immat Gran (auto) 0.08 H (0.00-0.03) X10*3/uL Absolute Neuts (auto) 9.3 H (2.0-8.3) X10*3/uL Absolute Nucleated RBC 0.000 (0.0-0.012) X10*3/uL Nucleated RBC % (auto) 0.0 (0.0-0.2) /100WBC Hold Blue Top SEE NOTE Troponin I High Sens < 3.5 (<3.5-17.0) ng/L Discharge Plan Discharge Clinical Impression: Chest pain Patient Disposition: Elopement Prescriptions: No Action gabapentin 100 mg Capsule 100 mg PO TID RF: 0 bupropion HCl 100 mg Tablet Sustained-Release 12 Hr 100 mg PO DAILY RF: 0 perphenazine 8 mg Tablet 4 mg PO BID RF: 0 losartan 50 mg Tablet 50 mg PO DAILY RF: 0 valacyclovir [Valtrex] 1 gram tablet 1,000 mg PO DAILY Qty: 30 RF: 0 cyclobenzaprine 10 mg tablet 10 mg PO TID PRN (Reason: muscle spasm) Qty: 14 RF: 0 cyclobenzaprine 10 mg tablet 10 mg PO TID PRN (Reason: muscle spasm) Qty: 14 RF: 0 cephalexin 500 mg capsule 500 mg PO BID 7 Days Qty: 14 RF: 0 topiramate [Topamax] 100 mg tablet 100 mg PO TID RF: 0 quetiapine [Seroquel] 300 mg tablet 300 mg PO BEDTIME RF: 0 clonidine HCl 0.1 mg tablet 0.1 mg PO BID@1600,2000 RF: 0
[2021-03-28 22:27] VITALS: BP 183/87; PULSE 85; RESP 18; O2SAT 97
[2021-03-28] MEDS: Ibuprofen 400 MG TABLET PO (22:30)
[2021-03-28 23:25] LABS: MANUAL DIFF FLAG NO
[2021-03-28 23:26] LABS: Basophils Absolute Auto 0.1 X10*3/uL (0.0-0.2); Basophils Percent Auto 0.4 % (0-2); Eosinophils Absolute Auto 0.3 X10*3/uL (0.0-0.4); Eosinophils Percent Auto 2.4 % (0-4); Hematocrit 39.4 % (37-47); Imm Gran Abs Auto 0.08 X10*3/uL (0.00-0.03); Imm Gran Pct Auto 0.6 % (0.0-0.4); Lymphocytes Absolute Auto 2.9 X10*3/uL (1.2-4.9); Lymphocytes Percent Auto 21.7 % (20-40); Mean Corpuscular HGB Conc 30.5 g/dl (31.0-35.0); Mean Corpuscular Hemoglobin 25.2 pg (27.0-33.0); Mean Corpuscular Volume 82.6 fL (80-98); Mean Platelet Volume 8.5 fL (9.4-12.3); Monocytes Absolute Auto 0.8 X10*3/uL (0.1-1.2); Monocytes Percent Auto 5.7 % (2-11); Neutrophils Absolute Auto 9.3 X10*3/uL (2.0-8.3); Neutrophils Percent Auto 69.2 % (45-73); Platelet Count 292 X10*3/uL (160-400); Red Blood Count 4.77 X10*6/uL (4.20-5.50); Red Cell Distribution Width 16.1 % (11.0-16.0); White Blood Count 13.4 X10*3/uL (4.8-10.8)
[2021-03-29 00:06] LABS: Troponin-I High Sensitivity < 3.5 ng/L (<3.5-17.0)
--- NOTE | 2021-03-29 01:31 | PC.NURSE ---
PT SWEARING IN THE HALLWAYS, YELLING REPEATEDLY, REFUSING TO STAY IN BED. PT LEFT AMA WITHOUT SIGNING PAPERWORK.
[2021-03-29 06:37] LABS: Glucose Random 132 mg/dL (60-115)
[2021-03-29 06:39] LABS: Calcium 8.7 mg/dL (8.4-10.2)
[2021-03-29 06:41] LABS: Sodium 141 mmol/L (135-145)
[2021-03-29 06:42] LABS: Carbon Dioxide 26 mmol/L (22-29); Chloride 106 mmol/L (96-108); Potassium 4.3 mmol/L (3.3-5.1)
[2021-03-29 06:43] LABS: Blood Urea Nitrogen 14 mg/dL (9-16)
[2021-03-29 06:47] LABS: Anion Gap 9 (12-20)
== END 2021-03-29 01:32 | disposition left against medical advice (07) ==
PROVIDERS: Emergency Medicine Emergency Medical Services; Emergency Provider Emergency Medicine
DX: R07.9 Chest pain, unspecified (principal); I10 Essential (primary) hypertension; F17.210 Nicotine dependence, cigarettes, uncomplicated; F12.90 Cannabis use, unspecified, uncomplicated
CPT/HCPCS: 36415; 71045; 80048; 84484; 84702; 85025; 99284

== ENCOUNTER 2021-03-30 19:14 | Emergency (ER) | payer MEDICAID, SELFPAY ==
--- NOTE | ~2021-03-30 | XR_ITS ---
EXAMINATION: XR FOOT, RIGHT CLINICAL INFORMATION: Foot swelling, right COMPARISON: None TECHNIQUE: AP, lateral, and oblique views of the right foot. FINDINGS: There is marked swelling of the foot region of the metatarsals. No other significant abnormality is seen. No fractures are seen. A plantar calcaneal spur is present. Some mild degenerative changes are present at the cuneiform metatarsal junction. XR/XR foot RT 2V IMPRESSION: Marked soft tissue swelling but no acute osseous abnormality.
--- NOTE | ~2021-03-30 | US_ITS ---
EXAMINATION: US VENOUS ULTRASOUND WITH DOPPLER LOWER EXTREMITY, RIGHT CLINICAL INFORMATION: Swelling COMPARISON: None TECHNIQUE: Ultrasound of the deep veins is performed from the hip to the calf with compression sonography and color and pulse Doppler assessment. Spectral analysis with color-flow imaging is performed. FINDINGS: There is normal venous compression and respiratory variation and augmented flow. The visualized common femoral vein, superficial femoral vein, profunda femoral vein, popliteal vein, and the trifurcation region shows no evidence of deep venous thrombosis. 5 x 3.3 cm popliteal fossa cyst. If the patient's symptoms persist, followup ultrasound in 5 days 7 days might be of value to exclude proximal propagation from a non-visualized calf vein. US/US venous duplex LE RT IMPRESSION: No DVT demonstrated in the right lower extremity.
[2021-03-30 19:39] VITALS: BP 158/72; PULSE 84; RESP 18; TEMP 37.1; O2SAT 95; BMI 63.1
--- NOTE | 2021-03-30 19:48 | ED.EXTPRO ---
HPI - Extremity Problem General Chief complaint: Extremity Problem Stated complaint: tingling arm x 3 days Source: patient Mode of arrival: ambulatory Limitations: no limitations History of Present Illness HPI Narrative: 40-year-old female with extensive history of presenting to the emergency department with past medical history of morbid obesity, hypertension, hyperlipidemia, bipolar 1, anxiety, and schizophrenia presents with initial chief complaint of arm tingling, but changed her statement to right foot swelling and pain. Patient does not recall any injuries and states that the foot has been swollen for approximately 3 days. Patient denies chest pain or pressure, palpitations, shortness of breath on exertion, abdominal pain, abdominal distention, dysuria, hematuria, fevers, chills, loss of balance, and any other concerning symptoms. MD Complaint: extremity swelling Onset (ago): day(s) (3) Pain Consistency: constant Location: right and lower extremity Severity scale (1-10): 10 Quality: aching Radiation: none Relieving factors: nothing Exacerbating factors: weight bearing, walking and palpation Associated symptoms: denies other symptoms Related Data Home Medications Medication Instructions Recorded Confirmed clonidine HCl 0.1 mg tablet 0.1 mg PO BID@1600,199902/11/21 03/07/21 quetiapine 300 mg tablet 300 mg PO BEDTIME 02/11/21 03/07/21 topiramate 100 mg tablet 100 mg PO TID 02/11/21 03/07/21 bupropion HCl 100 mg PO DAILY 03/07/21 03/07/21 gabapentin 100 mg PO TID 03/07/21 03/07/21 losartan 50 mg PO DAILY 03/07/21 03/07/21 perphenazine 4 mg PO BID 03/07/21 03/07/21 Previous Rx's Medication Instructions Recorded valacyclovir [Valtrex] 1,000 mg PO DAILY #30 tab 03/07/21 cephalexin 500 mg PO BID 7 Days #14 cap 03/27/21 cyclobenzaprine 10 mg PO TID PRN #14 tab 03/27/21 cyclobenzaprine 10 mg PO TID PRN #14 tab 03/27/21 Allergies Allergy/AdvReac Type Severity Reaction Status Date / Time Penicillins [PENICILLINS] Allergy Severe HIVES Verified 03/30/21 19:42 aspirin [ASA] Allergy Intermediate HIVES Verified 03/30/21 19:42 azithromycin [AZITHROMYCIN] Allergy Intermediate ITCHING Verified 03/30/21 19:42 erythromycin base Allergy Intermediate HIVES Verified 03/30/21 19:42 [Erythromycin Base] lamotrigine [From Lamictal] Allergy Intermediate ITCHING Verified 03/30/21 19:42 levofloxacin [From LEVAQUIN] Allergy Intermediate HIVES Verified 03/30/21 19:42 oxycodone [From Percocet] Allergy Intermediate HIVES Verified 03/30/21 19:42 penicillin V Allergy Unknown Itching Verified 03/30/21 19:42 soap [SOAP] Allergy Unknown UNKNOWN Verified 03/30/21 19:42 RXN TO IVORY AND JERGEN'S SOAP doxycycline Allergy Itching Verified 03/30/21 19:42 Lamictal Allergy Unknown hives Uncoded 03/30/21 19:42 Oxycodone (5MG) Allergy Unknown Itching Uncoded 03/30/21 19:42 Penicillin Allergy Unknown hives Uncoded 03/30/21 19:42 Lactose AdvReac Unknown intolerance Uncoded 03/30/21 19:42 Review of Systems Review of Systems: Constitutional: No Fever, No Chills ENT/Mouth: No Ear Pain, No Hoarseness, No sore throat Eyes: No Eye Pain, No Swelling, No Redness, No Foreign Body Cardiovascular: No Chest Pain, No SOB Respiratory: No Cough, No Dyspnea Gastrointestinal: No Nausea, No Vomiting, No Diarrhea, No abdominal Pain Genitourinary: No Dysuria, No Hematuria Musculoskeletal: positive right foot pain, No Myalgias, No Joint Swelling Skin: No Skin lacerations, No rash Neuro: No Weakness, No Numbness, No Paresthesias, No Loss of Consciousness, No Dizziness, No Headache Psych: No Anxiety/Panic, No Depression Heme/Lymph: no easy bruising, no Lymphadenopathy Endocrine: No Polyuria, No Polydipsia Yes all other systems are reviewed and are negative [facility] Past Medical History Attestation statement: The following information was validated with the patient. Source: old records reviewed Medical History Abdominal pain Anxiety Asthma Bipolar 1 disorder Degenerative arthritis of knee, bilateral Hernia Hypertension Manic depression Morbid obesity Morbid obesity Schizophrenia Surgical History History of hernia surgery Social History Social History Alcohol intake: current Alcohol intake frequency: a few times a week Alcohol type: beer Patient Tobacco Use Status: Current everyday Tobacco user Substance Use Type: Marijuana Advance Directives: No Advance Directives Information Provided: No Patient : No Physical Exam Vital Signs: Vital Signs: Last Vital Signs Temp 98.8 F 03/30/21 19:39 Pulse 84 03/30/21 19:39 Resp 18 03/30/21 19:39 BP 158/72 H 03/30/21 19:39 Pulse Ox 95 03/30/21 19:39 Body Mass Index 63.1 Appearance: Alert. Oriented X3. No acute distress. Eyes: Pupils equal, round and reactive to light. ENT: Pharynx normal. Neck: Normal inspection. Neck supple. CVS: Normal heart rate and rhythm. Pulses normal. Respiratory: No respiratory distress. Breath sounds normal. Abdomen: Soft and nontender. Skin: Skin warm and dry. Normal skin color. Normal skin turgor. Extremities: Positive bilateral lower extremity edema, right greater than the left. Full range of motion. Brisk capillary refill with equal pedal pulses. Neuro: No motor deficit. No sensory deficit. Course Course Course Narrative: 40-year-old female presents with right foot pain and swelling. Will order x-rays and rule out DVT with duplex. X-rays negative for acute findings. Duplex negative for blood clot. Patient was advised follow-up with primary care provider for further investigation. Patient verbalized understanding of and agrees plan of care discharge home. MDM - Extremity (Nontraumatic) Differential Diagnosis Differential diagnosis: Likely cellulitis, lower extremity edema and deep vein thrombosis of lower extremity Medical Records Attestation: I reviewed the patient's medical records. Lab Data Attestation: I reviewed the patient's lab results. Labs: Lab Results 03/30/21 Range/Units 21:38 Urine Color YELLOW Urine Appearance CLEAR Urine pH 6.0 (5.0-8.0) Ur Specific Only 1.025 (1.005-1.025) Urine Protein NEG (NEG-TRACE) MG/DL Urine Glucose (UA) NEG (NEG) MG/DL Urine Ketones NEG (NEG) MG/DL Urine Blood NEG (NEG) Urine Nitrite NEG (NEG) Ur Leukocyte Esterase NEG (NEG) Imaging Data Foot x-ray: Attestation: I personally reviewed and interpreted this imaging study as follows: Radiologist's impression: EXAMINATION: XR FOOT, RIGHT CLINICAL INFORMATION: Foot swelling, right COMPARISON: None TECHNIQUE: AP, lateral, and oblique views of the right foot. FINDINGS: There is marked swelling of the foot region of the metatarsals. No other significant abnormality is seen. No fractures are seen. A plantar calcaneal spur is present. Some mild degenerative changes are present at the cuneiform metatarsal junction. XR/XR foot RT 2V IMPRESSION: Marked soft tissue swelling but no acute osseous abnormality. Venous US: Attestation: I personally reviewed and interpreted this imaging study as follows: Radiologist's impression: EXAMINATION: US VENOUS ULTRASOUND WITH DOPPLER LOWER EXTREMITY, RIGHT CLINICAL INFORMATION: Swelling COMPARISON: None TECHNIQUE: Ultrasound of the deep veins is performed from the hip to the calf with compression sonography and color and pulse Doppler assessment. Spectral analysis with color-flow imaging is performed. FINDINGS: There is normal venous compression and respiratory variation and augmented flow. The visualized common femoral vein, superficial femoral vein, profunda femoral vein, popliteal vein, and the trifurcation region shows no evidence of deep venous thrombosis. 5 x 3.3 cm popliteal fossa cyst. If the patient's symptoms persist, followup ultrasound in 5 days 7 days might be of value to exclude proximal propagation from a non-visualized calf vein. US/US venous duplex LE RT IMPRESSION: No DVT demonstrated in the right lower extremity. Discharge Plan Discharge Clinical Impression: Lower extremity edema Patient Disposition: Home, Self-Care Instructions: Leg Edema (ED) Additional Instructions: You were evaluated for lower extremity edema to the right side. Your x-rays are negative for fractures and acute findings. Your DVT study was negative for blood clot. Please follow-up with primary care physician. You may need medications to help reduce this edema. Thank you for choosing this emergency department for evaluation. Please follow-up with primary care physician as needed. Return to the emergency department for any new, concerning, or worsening symptoms. Prescriptions: No Action gabapentin 100 mg Capsule 100 mg PO TID RF: 0 bupropion HCl 100 mg Tablet Sustained-Release 12 Hr 100 mg PO DAILY RF: 0 perphenazine 8 mg Tablet 4 mg PO BID RF: 0 losartan 50 mg Tablet 50 mg PO DAILY RF: 0 valacyclovir [Valtrex] 1 gram tablet 1,000 mg PO DAILY Qty: 30 RF: 0 cyclobenzaprine 10 mg tablet 10 mg PO TID PRN (Reason: muscle spasm) Qty: 14 RF: 0 cyclobenzaprine 10 mg tablet 10 mg PO TID PRN (Reason: muscle spasm) Qty: 14 RF: 0 cephalexin 500 mg capsule 500 mg PO BID 7 Days Qty: 14 RF: 0 topiramate [Topamax] 100 mg tablet 100 mg PO TID RF: 0 quetiapine [Seroquel] 300 mg tablet 300 mg PO BEDTIME RF: 0 clonidine HCl 0.1 mg tablet 0.1 mg PO BID@1600,2000 RF: 0
[2021-03-30 21:51] LABS: Glucose Urine UA NEG (NEG); Leukocyte Esterase Urine NEG (NEG); Nitrite Urine NEG (NEG); Specific Gravity - Urine 1.025 (1.005-1.025); Urine Blood NEG (NEG); Urine Ketones NEG (NEG); Urine Protein NEG (NEG-TRACE)
[2021-03-30 21:56] LABS: Appearance Urine CLEAR; Color Urine YELLOW
== END 2021-03-30 23:23 | disposition home or self-care (01) ==
PROVIDERS: Nurse Practitioner Family; Emergency Provider Internal Medicine
DX: M79.671 Pain in right foot (principal); R22.41 Localized swelling, mass and lump, right lower limb; R60.0 Localized edema; I10 Essential (primary) hypertension; E78.5 Hyperlipidemia, unspecified; F17.210 Nicotine dependence, cigarettes, uncomplicated; F12.90 Cannabis use, unspecified, uncomplicated
CPT/HCPCS: 73620; 81003; 93971; 99283; 99284

== ENCOUNTER 2021-04-12 21:45 | Emergency (ER) | payer MEDICAID, SELFPAY ==
--- NOTE | ~2021-04-12 | XR_ITS ---
EXAMINATION: RIGHT FOOT AND RIGHT ANKLE CLINICAL INFORMATION: Right foot and ankle pain COMPARISON: Right foot 03/30/2021 TECHNIQUE: 2 views right ankle, 3 views right foot FINDINGS: There is a tiny osteophyte arising from the medial malleolus. No other ankle abnormality is seen. The mortise appears stable and no fractures are seen. There is no evidence of a joint effusion 3 views of the right foot demonstrate a large calcaneal spur. There is some degenerative changes present at the base of the metatarsals and their articulations with the tarsal bones. No definite fractures are seen. The interphalangeal joints and the metatarsophalangeal joints appear normal. XR/XR ankle RT 2V IMPRESSION: No significant evidence of an acute injury. Some degenerative changes present at the base of the metatarsals with a small osteophyte arising from the medial malleolus.
--- NOTE | ~2021-04-12 | XR_ITS ---
EXAMINATION: RIGHT FOOT AND RIGHT ANKLE CLINICAL INFORMATION: Right foot and ankle pain COMPARISON: Right foot 03/30/2021 TECHNIQUE: 2 views right ankle, 3 views right foot FINDINGS: There is a tiny osteophyte arising from the medial malleolus. No other ankle abnormality is seen. The mortise appears stable and no fractures are seen. There is no evidence of a joint effusion 3 views of the right foot demonstrate a large calcaneal spur. There is some degenerative changes present at the base of the metatarsals and their articulations with the tarsal bones. No definite fractures are seen. The interphalangeal joints and the metatarsophalangeal joints appear normal. XR/XR foot RT min 3V IMPRESSION: No significant evidence of an acute injury. Some degenerative changes present at the base of the metatarsals with a small osteophyte arising from the medial malleolus.
[2021-04-12 22:09] VITALS: BP 138/100; BP 150/78; PULSE 76; PULSE 82; RESP 20; TEMP 36.8; O2SAT 95; O2SAT 97; BMI 64.0
[2021-04-13] VITALS: RESP 18
--- NOTE | 2021-04-13 00:12 | ED_ITS ---
HPI - Extremity Injury (Lower) General Chief Complaint: Extremity Injury, Lower Stated Complaint: rt foot pain x 4 days Time Seen by Provider: 04/13/21 00:12 Source: patient Mode of arrival: ambulatory Limitations: no limitations History of Present Illness HPI Narrative: Pain to the plantar aspect of the right foot for past 4 days no known injury. complaint: foot injury Onset (ago): day(s) Injury: Right: foot Severity: mild Relieving factors: nothing Exacerbating factors: nothing Other symptoms: none Related Data Home Medications Medication Instructions Recorded Confirmed clonidine HCl 0.1 mg tablet 0.1 mg PO BID@1600,199902/11/21 03/07/21 quetiapine 300 mg tablet 300 mg PO BEDTIME 02/11/21 03/07/21 topiramate 100 mg tablet 100 mg PO TID 02/11/21 03/07/21 bupropion HCl 100 mg PO DAILY 03/07/21 03/07/21 gabapentin 100 mg PO TID 03/07/21 03/07/21 losartan 50 mg PO DAILY 03/07/21 03/07/21 perphenazine 4 mg PO BID 03/07/21 03/07/21 Previous Rx's Medication Instructions Recorded valacyclovir [Valtrex] 1,000 mg PO DAILY #30 tab 03/07/21 cephalexin 500 mg PO BID 7 Days #14 cap 03/27/21 cyclobenzaprine 10 mg PO TID PRN #14 tab 03/27/21 cyclobenzaprine 10 mg PO TID PRN #14 tab 03/27/21 Allergies Allergy/AdvReac Type Severity Reaction Status Date / Time Penicillins [PENICILLINS] Allergy Severe HIVES Verified 04/12/21 22:09 aspirin [ASA] Allergy Intermediate HIVES Verified 04/12/21 22:09 azithromycin [AZITHROMYCIN] Allergy Intermediate ITCHING Verified 04/12/21 22:09 erythromycin base Allergy Intermediate HIVES Verified 04/12/21 22:09 [Erythromycin Base] lamotrigine [From Lamictal] Allergy Intermediate ITCHING Verified 04/12/21 22:09 levofloxacin [From LEVAQUIN] Allergy Intermediate HIVES Verified 04/12/21 22:09 oxycodone [From Percocet] Allergy Intermediate HIVES Verified 04/12/21 22:09 penicillin V Allergy Unknown Itching Verified 04/12/21 22:09 soap [SOAP] Allergy Unknown UNKNOWN Verified 04/12/21 22:09 RXN TO IVORY AND JERGEN'S SOAP doxycycline Allergy Itching Verified 04/12/21 22:09 Lamictal Allergy Unknown hives Uncoded 03/30/21 19:42 Oxycodone (5MG) Allergy Unknown Itching Uncoded 03/30/21 19:42 Penicillin Allergy Unknown hives Uncoded 03/30/21 19:42 Lactose AdvReac Unknown intolerance Uncoded 03/30/21 19:42 Review of Systems 2 Review of Systems: Otherwise 12 point review of system is negative. Yes all other systems are reviewed and are negative PMFSH Past Medical History Medical History Abdominal pain Anxiety Asthma Bipolar 1 disorder Degenerative arthritis of knee, bilateral Hernia Hypertension Manic depression Morbid obesity Morbid obesity Schizophrenia Surgical History History of hernia surgery Social History Social History Alcohol intake: current Alcohol intake frequency: 0-2 drinks per day Alcohol type: beer Patient Tobacco Use Status: Current everyday Tobacco user Smoked in Last 30 Days: Yes Use of substances other than those prescribed or required for medical reasons: Yes Substance Use Type: Marijuana Advance Directives: No Patient : No Physical Exam Vital Signs: Vital Signs: Last Vital Signs Temp 98.2 F 04/12/21 22:09 Pulse 76 04/12/21 22:09 Resp 18 04/13/21 00:00 BP 150/78 H 04/12/21 22:09 Pulse Ox 95 04/12/21 22:09 Body Mass Index 64.0 Reviewed Const: General: cooperative and healthy appearing; No acute distress or intoxicated appearing Nutritional Appearance: average body habitus Orientation/consciousness: patient oriented x3 HENMT: Head: Yes normal to inspection Ears: hearing grossly normal bilaterally Resp: Effort & Inspection: normal respiratory effort Cardio: Jugular venous distension: no JVD : General: Yes no CVA tenderness Back/Spine/Pelvis: Back: no CVA tenderness Skin: General skin exam: no rashes or lesions noted Neuro: General: patient oriented x3 Extrem: General: Yes normal to inspection Ankle/foot/toe images: 1. Slight temp palpation over the plantar fascia in the midfoot. No obvious broken skin, swelling or deformity. Full range of motion. Squeeze test within normal limits. Homans negative. MDM - Extremity Injury (Lower) Medical Records Attestation: I reviewed the patient's medical records. Lab Data Attestation: I reviewed the patient's lab results. Imaging Data Foot x-ray: Radiologist's impression: [address] [id number] ReportSigned Patient: Pinky Mortensen MMR#: [id number]: [id number]:[id number]/Sex: 40 / FADM Date: 04/12/21Loc: [email or web address].EDAttending Dr: Ordering Physician: Temo Patel NP Date of Service: 04/12/21 Procedure(s): XR ankle RT 2V Accession Number(s): [id number] cc: Temo Patel NP~ EXAMINATION: RIGHT FOOT AND RIGHT ANKLE CLINICAL INFORMATION: Right foot and ankle pain COMPARISON: Right foot 03/30/2021 TECHNIQUE: 2 views right ankle, 3 views right foot FINDINGS: There is a tiny osteophyte arising from the medial malleolus. No other ankle abnormality is seen. The mortise appears stable and no fractures are seen. There is no evidence of a joint effusion 3 views of the right foot demonstrate a large calcaneal spur. There is some degenerative changes present at the base of the metatarsals and their articulations with the tarsal bones. No definite fractures are seen. The interphalangeal joints and the metatarsophalangeal joints appear normal. XR/XR ankle RT 2V IMPRESSION: No significant evidence of an acute injury. Some degenerative changes present at the base of the metatarsals with a small osteophyte arising from the medial malleolus. Dictated By:JALYN GUEVARA MDSigned By:<Electronically signed by JALYN GUEVARA MD in [place]>04/13/21 0024 DD/ [id number]/TT: Veterinary Practice Manager: CHUN Discharge Plan Discharge Clinical Impression: Plantar fasciitis of right foot Patient Disposition: Home, Self-Care Instructions: Plantar Fasciitis (ED), Plantar Fasciitis Exercises (ED) Additional Instructions: Proper footwear, Tylenol for pain discomfort Foot brace Foot exercises as discussed Return if any concerns or symptoms otherwise follow up with primary care doctor Thank you Prescriptions: No Action gabapentin 100 mg Capsule 100 mg PO TID RF: 0 bupropion HCl 100 mg Tablet Sustained-Release 12 Hr 100 mg PO DAILY RF: 0 perphenazine 8 mg Tablet 4 mg PO BID RF: 0 losartan 50 mg Tablet 50 mg PO DAILY RF: 0 valacyclovir [Valtrex] 1 gram tablet 1,000 mg PO DAILY Qty: 30 RF: 0 cyclobenzaprine 10 mg tablet 10 mg PO TID PRN (Reason: muscle spasm) Qty: 14 RF: 0 cyclobenzaprine 10 mg tablet 10 mg PO TID PRN (Reason: muscle spasm) Qty: 14 RF: 0 cephalexin 500 mg capsule 500 mg PO BID 7 Days Qty: 14 RF: 0 topiramate [Topamax] 100 mg tablet 100 mg PO TID RF: 0 quetiapine [Seroquel] 300 mg tablet 300 mg PO BEDTIME RF: 0 clonidine HCl 0.1 mg tablet 0.1 mg PO BID@1600,2000 RF: 0 Referrals: [facility] [Primary Care Provider] - 1 week
--- NOTE | 2021-04-13 00:36 | PC.NURSE ---
pt is able to ambulate to nurses station without difficulty.
== END 2021-04-13 00:41 | disposition home or self-care (01) ==
PROVIDERS: Emergency Provider Internal Medicine
DX: M72.2 Plantar fascial fibromatosis (principal); M79.671 Pain in right foot; F17.210 Nicotine dependence, cigarettes, uncomplicated; F12.90 Cannabis use, unspecified, uncomplicated
CPT/HCPCS: 73600; 73630; 99283; 99284

== ENCOUNTER 2021-04-19 03:27 | Emergency (ER) | payer MEDICAID, SELFPAY ==
--- NOTE | 2021-04-19 03:30 | ED.LOWEXIN ---
HPI - Extremity Injury (Lower) General Chief Complaint: Extremity Problem Stated Complaint: R FOOT PAIN/SWELLING, NO INJURY PER EMS Time Seen by Provider: 04/19/21 03:29 Source: patient Mode of arrival: EMS History of Present Illness HPI Narrative: 40-year-old female with presentation for right lower extremity swelling and pain that patient states has been worsening over the past few days without associated fevers, chills and states that the pain gets worse with ambulation. She denies any shortness of breath, chest pain /palpitations. Related Data Home Medications Medication Instructions Recorded Confirmed clonidine HCl 0.1 mg tablet 0.1 mg PO BID@1600,199902/11/21 03/07/21 quetiapine 300 mg tablet 300 mg PO BEDTIME 02/11/21 03/07/21 topiramate 100 mg tablet 100 mg PO TID 02/11/21 03/07/21 bupropion HCl 100 mg PO DAILY 03/07/21 03/07/21 gabapentin 100 mg PO TID 03/07/21 03/07/21 losartan 50 mg PO DAILY 03/07/21 03/07/21 perphenazine 4 mg PO BID 03/07/21 03/07/21 Previous Rx's Medication Instructions Recorded valacyclovir [Valtrex] 1,000 mg PO DAILY #30 tab 03/07/21 cephalexin 500 mg PO BID 7 Days #14 cap 03/27/21 cyclobenzaprine 10 mg PO TID PRN #14 tab 03/27/21 cyclobenzaprine 10 mg PO TID PRN #14 tab 03/27/21 Allergies Allergy/AdvReac Type Severity Reaction Status Date / Time Penicillins [PENICILLINS] Allergy Severe HIVES Verified 04/19/21 03:42 aspirin [ASA] Allergy Intermediate HIVES Verified 04/19/21 03:42 azithromycin [AZITHROMYCIN] Allergy Intermediate ITCHING Verified 04/19/21 03:42 erythromycin base Allergy Intermediate HIVES Verified 04/19/21 03:42 [Erythromycin Base] lamotrigine [From Lamictal] Allergy Intermediate ITCHING Verified 04/19/21 03:42 levofloxacin [From LEVAQUIN] Allergy Intermediate HIVES Verified 04/19/21 03:42 oxycodone [From Percocet] Allergy Intermediate HIVES Verified 04/19/21 03:42 penicillin V Allergy Unknown Itching Verified 04/19/21 03:42 soap [SOAP] Allergy Unknown UNKNOWN Verified 04/19/21 03:42 RXN TO IVORY AND JERGEN'S SOAP doxycycline Allergy Itching Verified 04/19/21 03:42 Lamictal Allergy Unknown hives Uncoded 04/19/21 03:42 Oxycodone (5MG) Allergy Unknown Itching Uncoded 04/19/21 03:42 Penicillin Allergy Unknown hives Uncoded 04/19/21 03:42 Lactose AdvReac Unknown intolerance Uncoded 04/19/21 03:42 Review of Systems Review of Systems: Pertinent positives and negatives as stated in HPI 10 point review systems otherwise negative. PMFSH Past Medical History Source: nursing notes reviewed Medical History Abdominal pain Anxiety Asthma Bipolar 1 disorder Degenerative arthritis of knee, bilateral Hernia Hypertension Manic depression Morbid obesity Morbid obesity Schizophrenia Surgical History History of hernia surgery Social History Social History Alcohol intake: current Alcohol intake frequency: 0-2 drinks per day Alcohol type: beer Patient Tobacco Use Status: Current everyday Tobacco user Substance Use Type: Marijuana Advance Directives: No Patient : No Physical Exam Vital Signs: Vital Signs: Last Vital Signs Temp 98.8 F 04/19/21 03:32 Pulse 77 04/19/21 03:32 Resp 18 04/19/21 03:32 BP 141/79 H 04/19/21 03:32 Pulse Ox 99 04/19/21 03:32 Body Mass Index 62.4 VITAL SIGNS: Reviewed. GENERAL: Well developed, well nourished, in no acute distress. HEAD: Normocephalic/atraumatic EYES: PERRLA, EOMI EARS: Ext canals without abnormality NOSE: Nares patent bilateral OROPHARYNX: no oral lesions noted, posterior pharynx clear NECK: Supple, no adenopathy LUNGS: Normal breath sounds, mild rhonchi. No adventitious sounds or accessory muscle use. SpO2<99> CARDIOVASCULAR: Regular rate and rhythm without noted murmurs, no JVD but 1 to 2+ lower extremity pitting edema and right lower extremity. ABDOMEN: Soft, non-tender, non-distended with bowel sounds. RIGHT LOWER EXTREMITY: lower leg is notably greater in size when compared to left, tactile warmth with noted 1 to 2+ pitting edema extending from foot approximately to mid calf without noted erythema or induration SKIN: Inspection of the skin reveals no rashes NEUROLOGIC: Alert and oriented x 4. Strength and sensation to light touch were grossly intact x 4. Course Course Course Narrative: 40-year-old female with history and clinical presentation consistent with likely venous stasis, but will evaluate for possible cellulitis and low clinical suspicion for DVT. Review of all investigations negative for acute findings from baseline comparison. Specifically, D-dimer is negative which excludes the possibility of DVT as a contributing factor to the right lower extremity swelling in the absence of erythema / induration and no change in leukocytosis suggests that this is a venous insufficiency problem as renal function is within normal limits as well. Patient was informed of all results and findings and was discharged home in stable condition with instructions to use compression stockings and follow up with her primary care provider. MDM - Extremity Injury (Lower) Lab Data Result diagrams: 04/19/21 04:28 04/19/21 04:58 Labs: Lab Results 04/19/21 04/19/21 04/19/21 Range/Units 04:04 04:28 04:28 WBC 14.0 H (4.8-10.8) X10*3/uL RBC 4.85 (4.20-5.50) X10*6/uL Hgb 12.4 (12.0-16.0) g/dl Hct 40.3 (37-47) % MCV 83.1 (80-98) fL MCH 25.6 L (27.0-33.0) pg MCHC 30.8 L (31.0-35.0) g/dl RDW 17.2 H (11.0-16.0) % Plt Count 297 (160-400) X10*3/uL MPV 8.9 L (9.4-12.3) fL Immature Gran % (Auto) 0.6 H (0.0-0.4) % Neut % (Auto) 67.8 (45-73) % Lymph % (Auto) 22.9 (20-40) % Grayson % (Auto) 5.9 (2-11) % Eos % (Auto) 2.4 (0-4) % Baso % (Auto) 0.4 (0-2) % Lymph # (Auto) 3.2 (1.2-4.9) X10*3/uL Grayson # (Auto) 0.8 (0.1-1.2) X10*3/uL Eos # (Auto) 0.3 (0.0-0.4) X10*3/uL Baso # (Auto) 0.1 (0.0-0.2) X10*3/uL Abs Immat Gran (auto) 0.08 H (0.00-0.03) X10*3/uL Absolute Neuts (auto) 9.5 H (2.0-8.3) X10*3/uL Absolute Nucleated RBC 0.000 (0.0-0.012) X10*3/uL Nucleated RBC % (auto) 0.0 (0.0-0.2) /100WBC D-Dimer 228 NG/ML Sodium (135-145) mmol/L Potassium (3.3-5.1) mmol/L Chloride (96-108) mmol/L Carbon Dioxide (22-29) mmol/L Anion Gap (12-20) BUN (9-16) mg/dL Creatinine (0.5-1.4) mg/dL Estim Creat Clear Calc Estimated GFR Random Glucose (60-115) mg/dL Calcium (8.4-10.2) mg/dL Total Bilirubin (0.0-1.0) mg/dL AST (5-31) U/L ALT (0-31) U/L Alkaline Phosphatase (39-117) U/L Total Protein (6.5-8.0) g/dL Albumin (3.5-5.0) g/dL Urine Color YELLOW Urine Appearance CLEAR Urine pH 7.5 (5.0-8.0) Ur Specific Mulberry 1.015 (1.005-1.025) Urine Protein NEG (NEG-TRACE) MG/DL Urine Glucose (UA) NEG (NEG) MG/DL Urine Ketones NEG (NEG) MG/DL Urine Blood NEG (NEG) Urine Nitrite NEG (NEG) Ur Leukocyte Esterase NEG (NEG) 04/19/21 Range/Units 04:58 WBC (4.8-10.8) X10*3/uL RBC (4.20-5.50) X10*6/uL Hgb (12.0-16.0) g/dl Hct (37-47) % MCV (80-98) fL MCH (27.0-33.0) pg MCHC (31.0-35.0) g/dl RDW (11.0-16.0) % Plt Count (160-400) X10*3/uL MPV (9.4-12.3) fL Immature Gran % (Auto) (0.0-0.4) % Neut % (Auto) (45-73) % Lymph % (Auto) (20-40) % Grayson % (Auto) (2-11) % Eos % (Auto) (0-4) % Baso % (Auto) (0-2) % Lymph # (Auto) (1.2-4.9) X10*3/uL Grayson # (Auto) (0.1-1.2) X10*3/uL Eos # (Auto) (0.0-0.4) X10*3/uL Baso # (Auto) (0.0-0.2) X10*3/uL Abs Immat Gran (auto) (0.00-0.03) X10*3/uL Absolute Neuts (auto) (2.0-8.3) X10*3/uL Absolute Nucleated RBC (0.0-0.012) X10*3/uL Nucleated RBC % (auto) (0.0-0.2) /100WBC D-Dimer NG/ML Sodium 139 (135-145) mmol/L Potassium 4.3 (3.3-5.1) mmol/L Chloride 109 H (96-108) mmol/L Carbon Dioxide 20 L (22-29) mmol/L Anion Gap 14 (12-20) BUN 18 H (9-16) mg/dL Creatinine 0.80 (0.5-1.4) mg/dL Estim Creat Clear Calc 138.4 Estimated GFR > 60 Random Glucose 91 (60-115) mg/dL Calcium 8.7 (8.4-10.2) mg/dL Total Bilirubin 0.2 (0.0-1.0) mg/dL AST 16 (5-31) U/L ALT 20 (0-31) U/L Alkaline Phosphatase 88 (39-117) U/L Total Protein 6.8 (6.5-8.0) g/dL Albumin 3.6 (3.5-5.0) g/dL Urine Color Urine Appearance Urine pH (5.0-8.0) Ur Specific Mulberry (1.005-1.025) Urine Protein (NEG-TRACE) MG/DL Urine Glucose (UA) (NEG) MG/DL Urine Ketones (NEG) MG/DL Urine Blood (NEG) Urine Nitrite (NEG) Ur Leukocyte Esterase (NEG) Discharge Plan Discharge Clinical Impression: Venous insufficiency Patient Disposition: Home, Self-Care Instructions: Venous Insufficiency (DC) Additional Instructions: 1. Resume all home medications as prescribed. 2. Recommend obtaining compression stockings, you will need a custom fitting, the minimum rating that you should be using is 30mmHg. 3. Please follow-up with your primary care provider in the next 2-3 days for re-evaluation and further outpatient management. Return to the ER for acute worsening of symptoms. Prescriptions: No Action gabapentin 100 mg Capsule 100 mg PO TID RF: 0 bupropion HCl 100 mg Tablet Sustained-Release 12 Hr 100 mg PO DAILY RF: 0 perphenazine 8 mg Tablet 4 mg PO BID RF: 0 losartan 50 mg Tablet 50 mg PO DAILY RF: 0 valacyclovir [Valtrex] 1 gram tablet 1,000 mg PO DAILY Qty: 30 RF: 0 cyclobenzaprine 10 mg tablet 10 mg PO TID PRN (Reason: muscle spasm) Qty: 14 RF: 0 cyclobenzaprine 10 mg tablet 10 mg PO TID PRN (Reason: muscle spasm) Qty: 14 RF: 0 cephalexin 500 mg capsule 500 mg PO BID 7 Days Qty: 14 RF: 0 topiramate [Topamax] 100 mg tablet 100 mg PO TID RF: 0 quetiapine [Seroquel] 300 mg tablet 300 mg PO BEDTIME RF: 0 clonidine HCl 0.1 mg tablet 0.1 mg PO BID@1600,2000 RF: 0 Referrals: [facility] [Primary Care Provider] - 2 days
[2021-04-19 03:32] VITALS: BP 141/79; PULSE 77; RESP 18; TEMP 37.1; O2SAT 99; BMI 62.4
--- NOTE | 2021-04-19 03:56 | PC.NURSE ---
Patient refused to ambulate to bathroom. Geriatric commode brought to bedside. Encouraged to give urine specimen at this time. Pt given call woods but instead yells out for staff. Encouraged call woods use.
[2021-04-19 04:11] LABS: Glucose Urine UA NEG (NEG); Leukocyte Esterase Urine NEG (NEG); Nitrite Urine NEG (NEG); PH 7.5 (5.0-8.0); Specific Gravity - Urine 1.015 (1.005-1.025); Urine Blood NEG (NEG); Urine Ketones NEG (NEG); Urine Protein NEG (NEG-TRACE)
[2021-04-19 04:12] LABS: Appearance Urine CLEAR; Color Urine YELLOW
[2021-04-19 04:34] LABS: MANUAL DIFF FLAG NO
[2021-04-19 04:35] LABS: Basophils Absolute Auto 0.1 X10*3/uL (0.0-0.2); Basophils Percent Auto 0.4 % (0-2); Eosinophils Absolute Auto 0.3 X10*3/uL (0.0-0.4); Eosinophils Percent Auto 2.4 % (0-4); Hematocrit 40.3 % (37-47); Hemoglobin 12.4 g/dl (12.0-16.0); Imm Gran Abs Auto 0.08 X10*3/uL (0.00-0.03); Imm Gran Pct Auto 0.6 % (0.0-0.4); Lymphocytes Absolute Auto 3.2 X10*3/uL (1.2-4.9); Lymphocytes Percent Auto 22.9 % (20-40); Mean Corpuscular HGB Conc 30.8 g/dl (31.0-35.0); Mean Corpuscular Hemoglobin 25.6 pg (27.0-33.0); Mean Corpuscular Volume 83.1 fL (80-98); Mean Platelet Volume 8.9 fL (9.4-12.3); Monocytes Absolute Auto 0.8 X10*3/uL (0.1-1.2); Monocytes Percent Auto 5.9 % (2-11); Neutrophils Absolute Auto 9.5 X10*3/uL (2.0-8.3); Neutrophils Percent Auto 67.8 % (45-73); Platelet Count 297 X10*3/uL (160-400); Red Blood Count 4.85 X10*6/uL (4.20-5.50); Red Cell Distribution Width 17.2 % (11.0-16.0)
[2021-04-19 04:43] LABS: D Dimer 228 NG/ML
[2021-04-19 05:38] LABS: Alanine Aminotransferase 20 U/L (0-31); Albumin Level 3.6 g/dL (3.5-5.0); Alkaline Phosphatase 88 U/L (39-117); Anion Gap 14 (12-20); Aspartate Amino Transferase 16 U/L (5-31); Bilirubin Total 0.2 mg/dL (0.0-1.0); Blood Urea Nitrogen 18 mg/dL (9-16); Calcium 8.7 mg/dL (8.4-10.2); Carbon Dioxide 20 mmol/L (22-29); Chloride 109 mmol/L (96-108); Creatinine Clr Calc Pharmacy 138.4; Estimated Glomerular Filt Rate > 60; Glucose Random 91 mg/dL (60-115); Potassium 4.3 mmol/L (3.3-5.1); Sodium 139 mmol/L (135-145); Total Protein 6.8 g/dL (6.5-8.0)
== END 2021-04-19 06:49 | disposition home or self-care (01) ==
PROVIDERS: Emergency Provider Student in an Organized Health Care Education/Training Program
DX: I87.2 Venous insufficiency (chronic) (peripheral) (principal); I10 Essential (primary) hypertension; J45.909 Unspecified asthma, uncomplicated; Z79.899 Other long term (current) drug therapy
CPT/HCPCS: 36415; 80053; 81003; 85025; 85379; 99283

== ENCOUNTER 2021-04-19 23:26 | Emergency (ER) | payer MEDICAID, SELFPAY ==
--- NOTE | 2021-04-19 23:33 | PC.NURSE ---
PT ARRIVED TO THE ED TODAY W/C/O CP. PT HAD STABLE VS PER EMS, AND A NON DIAGNOTIC EKG. THE CHARGE NURSE I SPOKE W/THE PROVIDER WHO STATED THIS PATIENT WAS SEEN LASTNIGHT, HER EVAL WAS WNL AND THE MD FELT IT WAS APPROPRIATE TO PUT THIS PT IN A HALLWAY SPACE D/T LIMITED STAFFING AND AVAILABILITY OF CARDIAC MONITORS. HOWEVER THE PATIENT WAS BROUGHT INTO ROOM 22 WHERE THE DIVISION HUMAN RESOURCES MANAGER ATTEMPTED TO PERFORM AN EKG & MAINTAIN HER PRIVACY IN THE CURTAINED SPACE. AT THIS POINT THE PATIENT BECAME VERY VERBALLY ABUSIVE TO STAFF STATING THE FOLLOWING- I AM GOING TO BELEN THIS FUCKING PLACE THAT FUCKING BITCH DOESNT LIKE ME THATS WHY SHES PUTTING ME IN THE [place] PT WAS SPEAKING ABOUT THIS RN . YOU ARE A FUCKING BITCH, AND I AM FUCKING LEAVING PT WAS ENCOURAGED TO STAY AND FOLLOW THROUGH WITH THE WORKUP FOR HER STATED CHEST PAIN BUT PT DENIED STATING I AM HAVING MY DAD PICK ME UP, YOU ARE A BITCH'
--- NOTE | 2021-04-20 00:07 | PC.NURSE ---
IT WAS BROUGHT TO THIS RN'S ATTENTION THAT PT WAS REQUESTING TO SPEAK TO THE [facility] . NURSING HAND LEATHER TRIMMER DAVID WAS CONTACTED AND GIVEN AN EXPLANATION OF THE SITUATION. PT WAS SITTING ON BENCH OUTSIDE, W/SECURITY ACCOMPANYING ME TO THE BENCH PT WAS ADVISED IF SHE WOULD LIKE TO SPEAK TO THE NURSING HAND LEATHER TRIMMER TO DISCUSS HER CONCERNS DURING HER VISIT TODAY SHE COME HAVE A SEAT IN THE WAITING ROOM AND DAVID WILL BE DOWN TO SPEAK W/HER. PT WAS AGREEABLE AND SAT INSIDE. APPROX 5 MINS LATER SECURITY MADE THIS RN AWARE PT HAD LEFT W/HER RIDE. NURSING HAND LEATHER TRIMMER MADE AWARE
--- NOTE | 2021-04-20 00:17 | ED.CHESTPAIN ---
HPI - Chest Pain General Stated Complaint: chest pain Time Seen by Provider: 04/20/21 00:17 Related Data Home Medications Medication Instructions Recorded Confirmed clonidine HCl 0.1 mg tablet 0.1 mg PO BID@1600,2000 02/11/21 03/07/21 quetiapine 300 mg tablet 300 mg PO BEDTIME 02/11/21 03/07/21 topiramate 100 mg tablet 100 mg PO TID 02/11/21 03/07/21 bupropion HCl 100 mg PO DAILY 03/07/21 03/07/21 gabapentin 100 mg PO TID 03/07/21 03/07/21 losartan 50 mg PO DAILY 03/07/21 03/07/21 perphenazine 4 mg PO BID 03/07/21 03/07/21 Previous Rx's Medication Instructions Recorded valacyclovir [Valtrex] 1,000 mg PO DAILY #30 tab 03/07/21 cephalexin 500 mg PO BID 7 Days #14 cap 03/27/21 cyclobenzaprine 10 mg PO TID PRN #14 tab 03/27/21 cyclobenzaprine 10 mg PO TID PRN #14 tab 03/27/21 Allergies Allergy/AdvReac Type Severity Reaction Status Date / Time Penicillins [PENICILLINS] Allergy Severe HIVES Verified 04/19/21 03:42 aspirin [ASA] Allergy Intermediate HIVES Verified 04/19/21 03:42 azithromycin [AZITHROMYCIN] Allergy Intermediate ITCHING Verified 04/19/21 03:42 erythromycin base Allergy Intermediate HIVES Verified 04/19/21 03:42 [Erythromycin Base] lamotrigine [From Lamictal] Allergy Intermediate ITCHING Verified 04/19/21 03:42 levofloxacin [From LEVAQUIN] Allergy Intermediate HIVES Verified 04/19/21 03:42 oxycodone [From Percocet] Allergy Intermediate HIVES Verified 04/19/21 03:42 penicillin V Allergy Unknown Itching Verified 04/19/21 03:42 soap [SOAP] Allergy Unknown UNKNOWN Verified 04/19/21 03:42 RXN TO IVORY AND AMBREENGEN'S SOAP doxycycline Allergy Itching Verified 04/19/21 03:42 Lamictal Allergy Unknown hives Uncoded 04/19/21 03:42 Oxycodone (5MG) Allergy Unknown Itching Uncoded 04/19/21 03:42 Penicillin Allergy Unknown hives Uncoded 04/19/21 03:42 Lactose AdvReac Unknown intolerance Uncoded 04/19/21 03:42 PMFSH Past Medical History Medical History Abdominal pain Anxiety Asthma Bipolar 1 disorder Degenerative arthritis of knee, bilateral Hernia Hypertension Manic depression Morbid obesity Morbid obesity Schizophrenia Surgical History History of hernia surgery Social History Social History Alcohol intake: current Alcohol intake frequency: 0-2 drinks per day Alcohol type: beer Patient Tobacco Use Status: Current everyday Tobacco user Substance Use Type: Marijuana Advance Directives: No Advance Directives Information Provided: No Discharge Plan Discharge Patient Disposition: Left Without Being Seen Prescriptions: No Action gabapentin 100 mg Capsule 100 mg PO TID RF: 0 bupropion HCl 100 mg Tablet Sustained-Release 12 Hr 100 mg PO DAILY RF: 0 perphenazine 8 mg Tablet 4 mg PO BID RF: 0 losartan 50 mg Tablet 50 mg PO DAILY RF: 0 valacyclovir [Valtrex] 1 gram tablet 1,000 mg PO DAILY Qty: 30 RF: 0 cyclobenzaprine 10 mg tablet 10 mg PO TID PRN (Reason: muscle spasm) Qty: 14 RF: 0 cyclobenzaprine 10 mg tablet 10 mg PO TID PRN (Reason: muscle spasm) Qty: 14 RF: 0 cephalexin 500 mg capsule 500 mg PO BID 7 Days Qty: 14 RF: 0 topiramate [Topamax] 100 mg tablet 100 mg PO TID RF: 0 quetiapine [Seroquel] 300 mg tablet 300 mg PO BEDTIME RF: 0 clonidine HCl 0.1 mg tablet 0.1 mg PO BID@1600,1999 RF: 0 Discharge Date/Time: 04/20/21 00:56
== END 2021-04-20 00:56 | disposition left against medical advice (07) ==
PROVIDERS: Emergency Provider Emergency Medicine
DX: R07.9 Chest pain, unspecified (principal)

== ENCOUNTER 2021-04-22 13:51 | Emergency (ER) | payer MEDICAID, SELFPAY ==
[2021-04-22 13:55] VITALS: BP 177/100; PULSE 95; RESP 20; TEMP 36.6; O2SAT 97; BMI 62.1
--- NOTE | 2021-04-22 15:02 | ED_ITS ---
HPI - Skin/Abscess/Foreign Bdy General Chief complaint: Skin/Abscess/Foreign Body Stated complaint: ?infection Time Seen by Provider: 04/22/21 15:00 History of Present Illness HPI narrative: patient complains of redness spreading over several weeks and itching below the right breast, no fever no chills Related Data Home Medications Medication Instructions Recorded Confirmed quetiapine 300 mg tablet 300 mg PO BEDTIME 02/11/21 05/09/21 bupropion HCl 100 mg PO DAILY 03/07/21 05/09/21 albuterol sulfate [ProAir HFA] 2 puff PO Q6H PRN 05/09/21 05/09/21 clonidine HCl 1 tab PO BID 05/09/21 05/09/21 gabapentin 2 cap PO BID 05/09/21 05/09/21 hydrochlorothiazide 1 tab PO DAILY 05/09/21 05/09/21 methocarbamol 2 tab PO BEDTIME PRN 05/09/21 05/09/21 topiramate 1 tab PO TID 05/09/21 05/09/21 valacyclovir 1 tab PO QAM 05/09/21 05/09/21 Allergies Allergy/AdvReac Type Severity Reaction Status Date / Time Penicillins [PENICILLINS] Allergy Severe HIVES Verified 05/03/21 02:33 aspirin [ASA] Allergy Intermediate HIVES Verified 05/03/21 02:33 azithromycin [AZITHROMYCIN] Allergy Intermediate ITCHING Verified 05/03/21 02:33 erythromycin base Allergy Intermediate HIVES Verified 05/03/21 02:33 [Erythromycin Base] lamotrigine [From Lamictal] Allergy Intermediate ITCHING Verified 05/03/21 02:33 levofloxacin [From LEVAQUIN] Allergy Intermediate HIVES Verified 05/03/21 02:33 oxycodone [From Percocet] Allergy Intermediate HIVES Verified 05/03/21 02:33 penicillin V Allergy Unknown Itching Verified 05/03/21 02:33 soap [SOAP] Allergy Unknown UNKNOWN Verified 05/03/21 02:33 RXN TO IVORY AND JERGEN'S SOAP doxycycline Allergy Itching Verified 05/03/21 02:33 Lamictal Allergy Unknown hives Uncoded 05/03/21 02:33 Oxycodone (5MG) Allergy Unknown Itching Uncoded 05/03/21 02:33 Penicillin Allergy Unknown hives Uncoded 05/03/21 02:33 Lactose AdvReac Unknown intolerance Uncoded 05/03/21 02:33 Review of Systems Review of Systems: Positive for rash under right breast Negatives are no fever no chills no headache no sore throat no difficulty breathing or swallowing no chest pain no shortness of breath, no other rash no joint swelling Yes all other systems are reviewed and are negative PMFSH Past Medical History Source: nursing notes reviewed Medical History Abdominal pain Anxiety Asthma Bipolar 1 disorder Degenerative arthritis of knee, bilateral Hernia Hypertension Manic depression Morbid obesity Morbid obesity Schizophrenia Schizophrenia Surgical History History of hernia surgery Social History Social History Alcohol intake: current Alcohol intake frequency: 0-2 drinks per day Alcohol type: beer Patient Tobacco Use Status: Current everyday Tobacco user Substance Use Type: Marijuana Advance Directives: No Advance Directives Information Provided: Yes Patient : No Physical Exam Vital Signs: Vital Signs: Last Vital Signs Temp 98 F 04/22/21 13:55 Pulse 95 04/22/21 13:55 Resp 20 04/22/21 13:55 BP 177/100 H 04/22/21 13:55 Pulse Ox 97 04/22/21 13:55 Body Mass Index 62.1 General appearance no acute distress The pharynx is clear Neck is supple The chest is clear to auscultation bilateral Extremities full range of motion x4 Skin there is a red excoriated rash under right breast that crosses the midline there is no vesicular rash there is no tenderness there is no warmth but the s kin is very red, no swelling no fluctuance Course Course Course Narrative: Rash is likely fungal with possibility of secondary infection so patient is treated given prescriptions and will follow with primary care doctor Discharge Plan Discharge Clinical Impression: Cellulitis, Fungal infection Patient Disposition: Home, Self-Care Additional Instructions: we gave 1 dose of Diflucan which is an anti fungal and you can apply clotrimazole cream twice a day for fungal infection As it is very red it may be have a bacterial infection in addition so we prescribed Keflex Return any time any worse condition or any concerns Follow with primary doctor in 3-4 days if not improved for recheck Return to ER any time for spreading redness, worse pain and swelling, any sign of worsening infection any worse condition or any concerns Prescriptions: No Action bupropion HCl 100 mg Tablet Sustained-Release 12 Hr 100 mg PO DAILY RF: 0 valacyclovir 1 gram tablet 1 tab PO QAM RF: 0 topiramate 100 mg tablet 1 tab PO TID RF: 0 methocarbamol 500 mg tablet 2 tab PO BEDTIME PRN (Reason: muscle spasm) RF: 0 clonidine HCl 0.1 mg tablet 1 tab PO BID RF: 0 gabapentin 400 mg capsule 2 cap PO BID RF: 0 hydrochlorothiazide 25 mg tablet 1 tab PO DAILY RF: 0 albuterol sulfate [ProAir HFA] 90 mcg/actuation HFA aerosol inhaler 2 puff PO Q6H PRN (Reason: wheezing) RF: 0 quetiapine [Seroquel] 300 mg tablet 300 mg PO BEDTIME RF: 0 Interventions: ED Discharge Assessment Last Done: 04/22/21 15:24 Discharge Date/Time: 04/22/21 15:24
[2021-04-22] MEDS: cephALEXin 500 MG CAPSULE PO (15:06)
[2021-04-22] MEDS: Fluconazole 150 MG TABLET PO (15:06)
== END 2021-04-22 15:24 | disposition home or self-care (01) ==
PROVIDERS: Emergency Provider Emergency Medicine
DX: L03.313 Cellulitis of chest wall (principal); B48.8 Other specified mycoses; I10 Essential (primary) hypertension; F17.210 Nicotine dependence, cigarettes, uncomplicated; F12.90 Cannabis use, unspecified, uncomplicated
CPT/HCPCS: 99283

== ENCOUNTER 2021-04-28 13:25 | Emergency (ER) | payer MEDICAID, SELFPAY ==
--- NOTE | ~2021-04-28 | XR_ITS ---
EXAMINATION: XR CHEST CLINICAL INFORMATION: Chest pain, rule out pneumonia COMPARISON: Chest x-ray on 03/28/2021 TECHNIQUE: 2 views of the chest were obtained. FINDINGS: The cardiomediastinal silhouette is normal. No areas of consolidation. No pleural effusions. Soft tissues are unremarkable. XR/XR chest 2V IMPRESSION: No acute disease.
[2021-04-28 13:28] VITALS: BP 140/88; PULSE 92; RESP 16; O2SAT 98; BMI 62.1
--- NOTE | 2021-04-28 13:35 | ECG_ITS ---
Test Reason : CHEST PAIN Blood Pressure : / mmHG Vent. Rate : 089 BPM Atrial Rate : 089 BPM P-R Int : 152 ms QRS Dur : 084 ms QT Int : 374 ms P-R-T Axes : 038 008 054 degrees QTc Int : 455 ms Normal sinus rhythm Normal ECG When compared with ECG of 28-MAR-2021 21:56, No significant change was found Referred By: Mana Cantrell Electronically Signed By:INGA ESTEBAN
[2021-04-28 13:37] VITALS: BP 115/70; PULSE 88; RESP 28; TEMP 36.9; O2SAT 96
--- NOTE | 2021-04-28 13:37 | ED_ITS ---
HPI - General Adult General Chief complaint: General Medical Stated complaint: CHEST WALL PAIN Time Seen by Provider: 04/28/21 13:30 Source: patient and EMS Mode of arrival: EMS Limitations: no limitations History of Present Illness HPI narrative: 40 yo female With a past medical history of asthma, morbid obesity, hypertension, hyperlipidemia, bipolar, anxiety, schizophrenia of chest tightness, shortness of breath and cough with wheezing x1 hour. Unrelieved with home MDI. No fevers, chills, body aches, leg swelling or pain. Related Data Home Medications Medication Instructions Recorded Confirmed clonidine HCl 0.1 mg tablet 0.1 mg PO BID@1600,199902/11/21 03/07/21 quetiapine 300 mg tablet 300 mg PO BEDTIME 02/11/21 03/07/21 topiramate 100 mg tablet 100 mg PO TID 02/11/21 03/07/21 bupropion HCl 100 mg PO DAILY 03/07/21 03/07/21 gabapentin 100 mg PO TID 03/07/21 03/07/21 losartan 50 mg PO DAILY 03/07/21 03/07/21 perphenazine 4 mg PO BID 03/07/21 03/07/21 Previous Rx's Medication Instructions Recorded valacyclovir [Valtrex] 1,000 mg PO DAILY #30 tab 03/07/21 cephalexin 500 mg PO BID 7 Days #14 cap 03/27/21 cyclobenzaprine 10 mg PO TID PRN #14 tab 03/27/21 cyclobenzaprine 10 mg PO TID PRN #14 tab 03/27/21 cephalexin 500 mg PO QID 7 Days #28 tab 04/22/21 clotrimazole 1 appl TOPICAL BID PRN #45 g 04/22/21 prednisone 40 mg PO DAILY #8 tab 04/28/21 Allergies Allergy/AdvReac Type Severity Reaction Status Date / Time Penicillins [PENICILLINS] Allergy Severe HIVES Verified 04/19/21 03:42 aspirin [ASA] Allergy Intermediate HIVES Verified 04/19/21 03:42 azithromycin [AZITHROMYCIN] Allergy Intermediate ITCHING Verified 04/19/21 03:42 erythromycin base Allergy Intermediate HIVES Verified 04/19/21 03:42 [Erythromycin Base] lamotrigine [From Lamictal] Allergy Intermediate ITCHING Verified 04/19/21 03:42 levofloxacin [From LEVAQUIN] Allergy Intermediate HIVES Verified 04/19/21 03:42 oxycodone [From Percocet] Allergy Intermediate HIVES Verified 04/19/21 03:42 penicillin V Allergy Unknown Itching Verified 04/19/21 03:42 soap [SOAP] Allergy Unknown UNKNOWN Verified 04/19/21 03:42 RXN TO IVORY AND JERGEN'S SOAP doxycycline Allergy Itching Verified 04/19/21 03:42 Lamictal Allergy Unknown hives Uncoded 04/19/21 03:42 Oxycodone (5MG) Allergy Unknown Itching Uncoded 04/19/21 03:42 Penicillin Allergy Unknown hives Uncoded 04/19/21 03:42 Lactose AdvReac Unknown intolerance Uncoded 04/19/21 03:42 Review of Systems Review of Systems: Yes all other systems are reviewed and are negative Constitutional: Constitutional: Reports no additional constitutional complaints, Denies body ache(s), Denies chills, Denies fever(s), Denies headache(s) and Denies weakness Eyes: Eyes: Reports no additional eye complaints and Denies change in vision ENT: Reports system reviewed and no additional complaints, except as documented, Denies dizziness, Denies headache(s), Denies nasal congestion, Denies nasal discharge and Denies neck pain Cardiovascular: Cardiovascular: Reports no additional cardiovascular complaints, Reports chest pain, Denies leg edema and Reports dyspnea Respiratory: Respiratory: Reports no additional respiratory complaints, Reports cough and Reports dyspnea Gastrointestinal: Gastrointestinal: Reports no additional gastrointestinal complaints, Denies abdominal pain, Denies diarrhea, Denies nausea and Denies vomiting Genitourinary: Genitourinary: Reports no additional female genitourinary complaints and Denies urinary incontinence Musculoskeletal: Musculoskeletal: Reports no additional musculoskeletal complaints, Denies back pain, Denies arthralgias, Denies joint swelling, Denies neck pain, Denies numbness and Denies tingling Integumentary/Breasts: Skin/Breast: Reports system reviewed and no additional complaints, except as docu and Denies rash Neurologic: Reports system reviewed and no additional complaints, except as documented, Denies Abnormal speech present, Denies dizziness, Denies headache(s), Denies numbness, Denies tingling and Denies weakness PMFSH Past Medical History Attestation statement: The following information was validated with the patient. Source: old records reviewed and nursing notes reviewed Medical History Abdominal pain Anxiety Asthma Bipolar 1 disorder Degenerative arthritis of knee, bilateral Hernia Hypertension Manic depression Morbid obesity Morbid obesity Schizophrenia Surgical History History of hernia surgery Social History Social History Alcohol intake: current Alcohol intake frequency: 0-2 drinks per day Alcohol type: beer Patient Tobacco Use Status: Current everyday Tobacco user Substance Use Type: Marijuana Advance Directives: No Advance Directives Information Provided: Yes Physical Exam Vital Signs: Vital Signs: Last Vital Signs Temp 98.5 F 04/28/21 13:37 Pulse 79 04/28/21 15:23 Resp 28 H 04/28/21 13:37 BP 115/70 04/28/21 13:37 Pulse Ox 96 04/28/21 13:37 Body Mass Index 62.1 Const: General: cooperative and anxious Orientation/consciousness: patient oriented x3 Limitations: no limitations HENMT: Head: Yes normal to inspection Ears: hearing grossly normal bilaterally General nose exam: Normal external nose present Face and sinus: Yes normal facial exam Mouth: Normal oral and palatal mucosa present Throat: Yes posterior oropharynx normal Eyes: General: appearance normal, both eyes and all related structures Pupils: Equal, round and reactive pupils present Neck: Neck: Yes normal visual inspection Chest: Chest palpation & inspection: normal inspection of the chest Resp: Other: Expiratory wheezing throughout, prolonged expiration Effort & Inspection: normal respiratory effort Cardio: Rate: regular rate Rhythm: regular rhythm Peripheral pulses: Peripheral pulses 2+ throughout GI: Inspection: Yes normal to inspection Palpation (GI): Soft to palpation and nontender Auscultation: normal bowel sounds Back/Spine/Pelvis: Thoracic/Lumbar Spine: thoracic and lumbar spine normal to inspection Skin: General skin exam: no rashes or lesions noted Neuro: General: patient oriented x3, no focal motor deficits and normal sensation to monofilament Cranial nerves: Yes Equal, round and reactive pupils present Cognition (Neuro): normal cognition Speech: No Abnormal s peech present Gait exam (Neuro): Normal gait present Motor exam (neuro): 5/5 motor strength present throughout Extrem: General: Yes normal to inspection, Yes no pedal edema and Yes no calf tenderness Course Course Course Narrative: 40-year-old female here with complaints of chest tightness, SOB, dry cough with wheezing x 1 hr. On exam the patient is anxious. She does have expiratory wheezing throughout with prolonged expirations. Will check EKG, labs, chest x-ray. Give DuoNeb, Solu-Medrol, magnesium, APAP. 1455-labs unremarkable. EKG shows no ischemic changes with a negative troponin. Chest x-ray shows no acute finding. Likely asthma exacerbation with chest wall strain. Patient is feeling improved after receiving the above medications. Her repeat exam is improved. No further wheezing with stable vital signs. Normal respiratory rate and oxygen saturation. Will send patient home on a burst of steroids. Reviewed worrisome signs and symptoms of when to return to the emergency department. Comfortable discharge home. Medical Decision Making Medical Records Medical records reviewed: Yes I reviewed the patient's medical records. Lab Data Lab results reviewed: Yes I reviewed the patient's lab results. Result diagrams: 04/28/21 13:45 04/28/21 13:45 Labs: Lab Results 04/28/21 04/28/21 04/28/21 Range/Units 13:45 13:45 13:45 WBC 14.1 H (4.8-10.8) X10*3/uL RBC 4.83 (4.20-5.50) X10*6/uL Hgb 12.2 (12.0-16.0) g/dl Hct 39.9 (37-47) % MCV 82.6 (80-98) fL MCH 25.3 L (27.0-33.0) pg MCHC 30.6 L (31.0-35.0) g/dl RDW 17.2 H (11.0-16.0) % Plt Count 315 (160-400) X10*3/uL MPV 8.5 L (9.4-12.3) fL Immature Gran % (Auto) 0.6 H (0.0-0.4) % Neut % (Auto) 69.7 (45-73) % Lymph % (Auto) 22.7 (20-40) % Dundy % (Auto) 4.5 (2-11) % Eos % (Auto) 2.1 (0-4) % Baso % (Auto) 0.4 (0-2) % Lymph # (Auto) 3.2 (1.2-4.9) X10*3/uL Dundy # (Auto) 0.6 (0.1-1.2) X10*3/uL Eos # (Auto) 0.3 (0.0-0.4) X10*3/uL Baso # (Auto) 0.1 (0.0-0.2) X10*3/uL Abs Immat Gran (auto) 0.09 H (0.00-0.03) X10*3/uL Absolute Neuts (auto) 9.8 H (2.0-8.3) X10*3/uL Absolute Nucleated RBC 0.000 (0.0-0.012) X10*3/uL Nucleated RBC % (auto) 0.0 (0.0-0.2) /100WBC Sodium 139 (135-145) mmol/L Potassium 4.3 (3.3-5.1) mmol/L Chloride 107 (96-108) mmol/L Carbon Dioxide 24 (22-29) mmol/L Anion Gap 12 (12-20) BUN 16 (9-16) mg/dL Creatinine 0.79 (0.5-1.4) mg/dL Estim Creat Clear Calc 139.8 Estimated GFR > 60 Random Glucose 145 H D (60-115) mg/dL Calcium 8.5 (8.4-10.2) mg/dL Magnesium 2.0 (1.6-2.6) mg/dL Total Bilirubin 0.4 (0.0-1.0) mg/dL Direct Bilirubin < 0.2 (0.0-0.5) mg/dL AST 16 (5-31) U/L ALT 16 (0-31) U/L Alkaline Phosphatase 88 (39-117) U/L Troponin I High Sens < 3.5 (<3.5-17.0) ng/L Total Protein 7.1 (6.5-8.0) g/dL Albumin 3.7 (3.5-5.0) g/dL COVID-19 ([facility]) (Negative) COVID-19 Clin Com 04/28/21 Range/Units 13:45 WBC (4.8-10.8) X10*3/uL RBC (4.20-5.50) X10*6/uL Hgb (12.0-16.0) g/dl Hct (37-47) % MCV (80-98) fL MCH (27.0-33.0) pg MCHC (31.0-35.0) g/dl RDW (11.0-16.0) % Plt Count (160-400) X10*3/uL MPV (9.4-12.3) fL Immature Gran % (Auto) (0.0-0.4) % Neut % (Auto) (45-73) % Lymph % (Auto) (20-40) % Dundy % (Auto) (2-11) % Eos % (Auto) (0-4) % Baso % (Auto) (0-2) % Lymph # (Auto) (1.2-4.9) X10*3/uL Dundy # (Auto) (0.1-1.2) X10*3/uL Eos # (Auto) (0.0-0.4) X10*3/uL Baso # (Auto) (0.0-0.2) X10*3/uL Abs Immat Gran (auto) (0.00-0.03) X10*3/uL Absolute Neuts (auto) (2.0-8.3) X10*3/uL Absolute Nucleated RBC (0.0-0.012) X10*3/uL Nucleated RBC % (auto) (0.0-0.2) /100WBC Sodium (135-145) mmol/L Potassium (3.3-5.1) mmol/L Chloride (96-108) mmol/L Carbon Dioxide (22-29) mmol/L Anion Gap (12-20) BUN (9-16) mg/dL Creatinine (0.5-1.4) mg/dL Estim Creat Clear Calc Estimated GFR Random Glucose (60-115) mg/dL Calcium (8.4-10.2) mg/dL Magnesium (1.6-2.6) mg/dL Total Bilirubin (0.0-1.0) mg/dL Direct Bilirubin (0.0-0.5) mg/dL AST (5-31) U/L ALT (0-31) U/L Alkaline Phosphatase (39-117) U/L Troponin I High Sens (<3.5-17.0) ng/L Total Protein (6.5-8.0) g/dL Albumin (3.5-5.0) g/dL COVID-19 ([facility]) Negative (Negative) COVID-19 Clin Com See Note Imaging Data Chest x-ray: Attestation: I personally reviewed and interpreted this imaging study as follows: Radiologist's impression: [address] [id number] ReportSigned Patient: Pinky Mortensen MMR#: [id number]: [id number]:[id number]/ Sex: 40 / FADM Date: 04/28/21Loc: EDAttending Dr: Ordering Physician: ERIC MCCABE NP Date of Service: 04/28/21 Procedure(s): XR chest 2V Accession Number(s): [id number] cc: ERIC MCCABE NP~ EXAMINATION: XR CHEST CLINICAL INFORMATION: Chest pain, rule out pneumonia COMPARISON: Chest x-ray on 03/28/2021 TECHNIQUE: 2 views of the chest were obtained. FINDINGS: The cardiomediastinal silhouette is normal. No areas of consolidation. No pleural effusions. Soft tissues are unremarkable. XR/XR chest 2V IMPRESSION: No acute disease. ECG Data Attestation: I personally reviewed and interpreted this ECG as follows: Interpretation: Normal sinus rhythm with a rate of 89, normal pr, normal QRS, normal QT Discharge Plan Discharge Clinical Impression: Asthma, Chest wall pain Patient Disposition: Home, Self-Care Instructions: Asthma (ED), Chest Wall Pain (ED) Additional Instructions: Start prednisone tomorrow Use your albuterol 2 puffs every 4-6 hours as needed for cough or wheezing Take Tylenol for pain as needed Prescriptions: New prednisone 20 mg tablet 40 mg PO DAILY Qty: 8 RF: 0 No Action gabapentin 100 mg Capsule 100 mg PO TID RF: 0 bupropion HCl 100 mg Tablet Sustained-Release 12 Hr 100 mg PO DAILY RF: 0 perphenazine 8 mg Tablet 4 mg PO BID RF: 0 losartan 50 mg Tablet 50 mg PO DAILY RF: 0 valacyclovir [Valtrex] 1 gram tablet 1,000 mg PO DAILY Qty: 30 RF: 0 cyclobenzaprine 10 mg tablet 10 mg PO TID PRN (Reason: muscle spasm) Qty: 14 RF: 0 cyclobenzaprine 10 mg tablet 10 mg PO TID PRN (Reason: muscle spasm) Qty: 14 RF: 0 cephalexin 500 mg capsule 500 mg PO BID 7 Days Qty: 14 RF: 0 cephalexin 500 mg tablet 500 mg PO QID 7 Days Qty: 28 RF: 0 clotrimazole 1 % cream 1 appl topical BID PRN (Reason: rash) Qty: 45 RF: 0 topiramate [Topamax] 100 mg tablet 100 mg PO TID RF: 0 quetiapine [Seroquel] 300 mg tablet 300 mg PO BEDTIME RF: 0 clonidine HCl 0.1 mg tablet 0.1 mg PO BID@1600,2000 RF: 0 Referrals: [facility] [Primary Care Provider] - 2 days (as needed) Interventions: ED Discharge Assessment Last Done: 04/28/21 15:54 Discharge Date/Time: 04/28/21 15:55
[2021-04-28 13:49] LABS: MANUAL DIFF FLAG NO
[2021-04-28 13:50] LABS: Basophils Absolute Auto 0.1 X10*3/uL (0.0-0.2); Basophils Percent Auto 0.4 % (0-2); Eosinophils Absolute Auto 0.3 X10*3/uL (0.0-0.4); Eosinophils Percent Auto 2.1 % (0-4); Hematocrit 39.9 % (37-47); Hemoglobin 12.2 g/dl (12.0-16.0); Imm Gran Abs Auto 0.09 X10*3/uL (0.00-0.03); Imm Gran Pct Auto 0.6 % (0.0-0.4); Lymphocytes Absolute Auto 3.2 X10*3/uL (1.2-4.9); Lymphocytes Percent Auto 22.7 % (20-40); Mean Corpuscular HGB Conc 30.6 g/dl (31.0-35.0); Mean Corpuscular Hemoglobin 25.3 pg (27.0-33.0); Mean Corpuscular Volume 82.6 fL (80-98); Mean Platelet Volume 8.5 fL (9.4-12.3); Monocytes Absolute Auto 0.6 X10*3/uL (0.1-1.2); Monocytes Percent Auto 4.5 % (2-11); Neutrophils Absolute Auto 9.8 X10*3/uL (2.0-8.3); Neutrophils Percent Auto 69.7 % (45-73); Platelet Count 315 X10*3/uL (160-400); Red Blood Count 4.83 X10*6/uL (4.20-5.50); Red Cell Distribution Width 17.2 % (11.0-16.0); White Blood Count 14.1 X10*3/uL (4.8-10.8)
[2021-04-28] MEDS: methylPREDNISolone Sod Succ 125 MG/2 ML VIAL IVPUSH (13:53)
[2021-04-28] MEDS: Acetaminophen 325 MG TABLET 650 MG PO (13:53)
[2021-04-28] MEDS: Magnesium Sulfate/H2O 2 GM/50 ML PIGGYBACK IV (13:53)
[2021-04-28 14:09] LABS: COVID-19 Test Negative (Negative)
[2021-04-28 14:11] LABS: Alanine Aminotransferase 16 U/L (0-31); Albumin Level 3.7 g/dL (3.5-5.0); Alkaline Phosphatase 88 U/L (39-117); Anion Gap 12 (12-20); Aspartate Amino Transferase 16 U/L (5-31); Bilirubin Direct < 0.2 mg/dL (0.0-0.5); Bilirubin Total 0.4 mg/dL (0.0-1.0); Blood Urea Nitrogen 16 mg/dL (9-16); Calcium 8.5 mg/dL (8.4-10.2); Carbon Dioxide 24 mmol/L (22-29); Chloride 107 mmol/L (96-108); Creatinine Clr Calc Pharmacy 139.8; Estimated Glomerular Filt Rate > 60; Glucose Random 145 mg/dL (60-115); Potassium 4.3 mmol/L (3.3-5.1); Sodium 139 mmol/L (135-145); Total Protein 7.1 g/dL (6.5-8.0)
[2021-04-28 14:21] LABS: Troponin-I High Sensitivity < 3.5 ng/L (<3.5-17.0)
[2021-04-28] MEDS: Albuterol/Iprat 2.5/0.5MG 3 ML AMPUL.NEB INHALE (15:22)
[2021-04-28 15:23] VITALS: PULSE 79; O2SAT 96
== END 2021-04-28 15:55 | disposition home or self-care (01) ==
PROVIDERS: Nurse Practitioner Family; Emergency Provider Emergency Medicine
DX: R07.89 Other chest pain (principal); J45.909 Unspecified asthma, uncomplicated; I10 Essential (primary) hypertension; Z79.899 Other long term (current) drug therapy; Z20.822 Contact with and (suspected) exposure to COVID-19
CPT/HCPCS: 36415; 71046; 80048; 80076; 83735; 84484; 85025; 87635; 93005; 94640; 96365; 96366; 96375; 99284; J2930; J3475

== ENCOUNTER 2021-04-28 23:17 | Emergency (ER) | payer MEDICAID, SELFPAY ==
[2021-04-28 23:28] VITALS: BP 198/103; PULSE 104; RESP 16; TEMP 36.3; O2SAT 97; BMI 62.1
--- NOTE | 2021-04-28 23:40 | ED.PSYCH ---
HPI - Psych General Chief Complaint: Psychiatric Symptoms Stated Complaint: crisis Time Seen by Provider: 04/28/21 23:34 Source: patient Mode of arrival: ambulatory Limitations: no limitations History of Present Illness HPI Narrative: Patient comes emergency room complaining hearing voices telling to cut herself. Patient states that she is very stressed as there is a new resident living in the patient's mother's house, who is continuously arguing with this patient. Patient grabbed scissors, attempted laceration to her arms bilaterally. Patient states she would like to see behavioral health, patient is not suicidal, states she would not hurt herself to commit suicide. The patient says that she stopped taking her medications 3 days ago because she is under a lot of stress with a new roommate. Related Data Home Medications Medication Instructions Recorded Confirmed clonidine HCl 0.1 mg tablet 0.1 mg PO BID@1600,199902/11/21 03/07/21 quetiapine 300 mg tablet 300 mg PO BEDTIME 02/11/21 03/07/21 topiramate 100 mg tablet 100 mg PO TID 02/11/21 03/07/21 bupropion HCl 100 mg PO DAILY 03/07/21 03/07/21 gabapentin 100 mg PO TID 03/07/21 03/07/21 losartan 50 mg PO DAILY 03/07/21 03/07/21 perphenazine 4 mg PO BID 03/07/21 03/07/21 Previous Rx's Medication Instructions Recorded valacyclovir [Valtrex] 1,000 mg PO DAILY #30 tab 03/07/21 cephalexin 500 mg PO BID 7 Days #14 cap 03/27/21 cyclobenzaprine 10 mg PO TID PRN #14 tab 03/27/21 cyclobenzaprine 10 mg PO TID PRN #14 tab 03/27/21 cephalexin 500 mg PO QID 7 Days #28 tab 04/22/21 clotrimazole 1 appl TOPICAL BID PRN #45 g 04/22/21 prednisone 40 mg PO DAILY #8 tab 04/28/21 Allergies Allergy/AdvReac Type Severity Reaction Status Date / Time Penicillins [PENICILLINS] Allergy Severe HIVES Verified 04/19/21 03:42 aspirin [ASA] Allergy Intermediate HIVES Verified 04/19/21 03:42 azithromycin [AZITHROMYCIN] Allergy Intermediate ITCHING Verified 04/19/21 03:42 erythromycin base Allergy Intermediate HIVES Verified 04/19/21 03:42 [Erythromycin Base] lamotrigine [From Lamictal] Allergy Intermediate ITCHING Verified 04/19/21 03:42 levofloxacin [From LEVAQUIN] Allergy Intermediate HIVES Verified 04/19/21 03:42 oxycodone [From Percocet] Allergy Intermediate HIVES Verified 04/19/21 03:42 penicillin V Allergy Unknown Itching Verified 04/19/21 03:42 soap [SOAP] Allergy Unknown UNKNOWN Verified 04/19/21 03:42 RXN TO IVORY AND JERGEN'S SOAP doxycycline Allergy Itching Verified 04/19/21 03:42 Lamictal Allergy Unknown hives Uncoded 04/19/21 03:42 Oxycodone (5MG) Allergy Unknown Itching Uncoded 04/19/21 03:42 Penicillin Allergy Unknown hives Uncoded 04/19/21 03:42 Lactose AdvReac Unknown intolerance Uncoded 04/19/21 03:42 Review of Systems Review of Systems: Constitutional : No Weight loss, No Fever, No Chills, No Night Sweats, No Fatigue, No Malaise ENT/Mouth : No Hearing loss, No Ear Pain, No Nasal Congestion, No Sinus Pain, No Hoarseness, No sore throat, No Rhinorrhea, No Swallowing Difficulty Eyes: No Eye Pain, No Swelling, No Redness, No Foreign Body, No Discharge, No Vision Changes Cardiovascular : No Chest Pain, No SOB, No Dyspnea on Exertion, No Orthopnea, No Edema, No Palpitations Respiratory : No Cough, No Sputum, No Wheezing, No Smoke Exposure, No Dyspnea Gastrointestinal : No Nausea, No Vomiting, No Diarrhea, No Constipation, No abdominal Pain, No Hematochezia, No Melena Genitourinary : no irregular bleeding, No Dysuria, No Urinary Frequency, No Hematuria, No Urinary Incontinence, No Urgency, No Flank Pain, No Urinary Flow Changes, No Hesitancy Musculoskeletal : No joint pain, No Myalgias, No Joint Swelling Skin : No Skin Lesions, No rash Neuro : No Weakness, No Numbness, No Paresthesias, No Loss of Consciousness, No Dizziness, No Headache Psych : Complaining of anxiety and depression, denies SI/HI/AH/VH, No Social Issues, Heme/Lymph: No Bruising, No Bleeding,No Lymphadenopathy Endocrine : No Polyuria, No Polydipsia, No Temperature Intolerance [facility] Past Medical History Medical History Abdominal pain Anxiety Asthma Bipolar 1 disorder Degenerative arthritis of knee, bilateral Hernia Hypertension Manic depression Morbid obesity Morbid obesity Schizophrenia Schizophrenia Surgical History History of hernia surgery Social History Social History Alcohol intake: current Alcohol intake frequency: 0-2 drinks per day Alcohol type: beer Patient Tobacco Use Status: Current everyday Tobacco user Substance Use Type: Marijuana Advance Directives: No Advance Directives Information Provided: No Patient : No Physical Exam Vital Signs: Vital Signs: Last Vital Signs Temp 97.4 F 04/28/21 23:28 Pulse 96 04/29/21 03:42 Resp 18 04/29/21 06:11 BP 136/73 04/29/21 03:42 Pulse Ox 95 04/29/21 03:42 Body Mass Index 62.1 Appearance: Alert. Oriented X3. No acute distress. Eyes: Pupils equal, round and reactive to light. ENT: Pharynx normal. Neck: Normal inspection. Neck supple. No lymph nodes noted. No crepitus CVS: Normal heart rate and rhythm. Pulses normal. Normal S1 and S2 Respiratory: No respiratory distress. Breath sounds normal. No Wheezing. No rales Abdomen: Soft and nontender. No rigidity. No distention. good BS x4 Skin: Skin warm and dry. Five superficial lacerations in forearms bilaterally, bleeding controlled Extremities: No lower extremity edema. No lower extremity edema. No Lacerations. No Rash Neuro: Oriented X 3. No motor deficit. No sensory deficit. Moving all extermities. No slurred speech. Course Course Course Narrative: Patient restarted on her home medications, given Seroquel, Topamax and clonidine. Patient agreeable to be seen by [facility] MDM - Psych Lab Data Labs: Lab Results 04/28/21 04/28/21 04/28/21 Range/Units 23:37 23:37 23:37 Urine Color YELLOW Urine Appearance HAZY Urine pH 7.0 (5.0-8.0) Ur Specific [place] >= 1.030 H (1.005-1.025) Urine Protein 2+ H (NEG-TRACE) MG/DL Urine Glucose (UA) 500 H (NEG) MG/DL Urine Ketones 5 (NEG) MG/DL Urine Blood TRACE (NEG) Urine Nitrite NEG (NEG) Ur Leukocyte Esterase NEG (NEG) Urine RBC 5-9 H (0) /HPF Urine WBC 1-4 (0-4) /HPF Ur Squamous Epith Cells 1+ /LPF Urine Bacteria 2+ /LPF Urine Mucus 2+ /LPF Urine Test NEGATIVE (NEGATIVE) Urine Opiates Screen Not Detected (Not Detect) Ur Barbiturates Screen Not Detected (Not Detect) Ur Phencyclidine Scrn Not Detected (Not Detect) Ur Amphetamines Screen Not Detected (Not Detect) U Benzodiazepines Scrn Not Detected (Not Detect) Urine Cocaine Screen Not Detected (Not Detect) U Marijuana (THC) Screen POSITIVE H (Not Detect) Discharge Plan Discharge Prescriptions: No Action gabapentin 100 mg Capsule 100 mg PO TID RF: 0 bupropion HCl 100 mg Tablet Sustained-Release 12 Hr 100 mg PO DAILY RF: 0 perphenazine 8 mg Tablet 4 mg PO BID RF: 0 losartan 50 mg Tablet 50 mg PO DAILY RF: 0 valacyclovir [Valtrex] 1 gram tablet 1,000 mg PO DAILY Qty: 30 RF: 0 cyclobenzaprine 10 mg tablet 10 mg PO TID PRN (Reason: muscle spasm) Qty: 14 RF: 0 cyclobenzaprine 10 mg tablet 10 mg PO TID PRN (Reason: muscle spasm) Qty: 14 RF: 0 cephalexin 500 mg capsule 500 mg PO BID 7 Days Qty: 14 RF: 0 prednisone 20 mg tablet 40 mg PO DAILY Qty: 8 RF: 0 cephalexin 500 mg tablet 500 mg PO QID 7 Days Qty: 28 RF: 0 clotrimazole 1 % cream 1 appl topical BID PRN (Reason: rash) Qty: 45 RF: 0 topiramate [Topamax] 100 mg tablet 100 mg PO TID RF: 0 quetiapine [Seroquel] 300 mg tablet 300 mg PO BEDTIME RF: 0 clonidine HCl 0.1 mg tablet 0.1 mg PO BID@1600,2000 RF: 0
[2021-04-28 23:48] LABS: Glucose Urine UA 500 MG/DL (NEG); Leukocyte Esterase Urine NEG (NEG); Nitrite Urine NEG (NEG); Specific Gravity - Urine >= 1.030 (1.005-1.025); Urine Blood TRACE (NEG); Urine Ketones 5 MG/DL (NEG); Urine Protein 2+ MG/DL (NEG-TRACE)
[2021-04-28 23:50] LABS: Appearance Urine HAZY; Color Urine YELLOW
[2021-04-28 23:55] LABS: UPreg QC Valid YES; Urine Pregnancy NEGATIVE (NEGATIVE)
[2021-04-29] LABS: Bacteria Urine 2+ /LPF; Mucus Urine 2+ /LPF; Squamous Epithelial Cell Urine 1+ /LPF
[2021-04-29 00:08] LABS: Amphetamine Screen Urine Not Detected (Not Detect); Barbiturates, Urine Not Detected (Not Detect); Benzodiazepines Screen Urine Not Detected (Not Detect); Cannabinoid Screen Urine POSITIVE (Not Detect); Cocaine Screen Urine Not Detected (Not Detect); Opiate Screen Urine Not Detected (Not Detect); Phencyclidine Screen Urine Not Detected (Not Detect)
[2021-04-29] MEDS: LORazepam 1 MG TABLET 2 MG PO (00:34)
[2021-04-29 00:35] VITALS: BP 190/70; PULSE 98
[2021-04-29] MEDS: Acetaminophen 325 MG TABLET 650 MG PO (00:35)
[2021-04-29] MEDS: Topiramate 100 MG TABLET PO (00:35)
[2021-04-29] MEDS: cloNIDine HCL 0.1 MG TABLET PO (00:35)
[2021-04-29] MEDS: QUEtiapine Fumarate 300 MG TABLET PO (00:35)
--- NOTE | 2021-04-29 03:25 | PC.NURSE ---
Hailee Oden at [facility] took verbal intake over phone. Hailee states unknown ETA for clinician
[2021-04-29 03:42] VITALS: BP 136/73; PULSE 96; RESP 24; O2SAT 95
[2021-04-29 06:11] VITALS: RESP 18
[2021-04-29 10:31] VITALS: BP 128/90; PULSE 76; RESP 18; O2SAT 95
--- NOTE | 2021-04-29 10:57 | PC.NURSE ---
mathew from the CARE team currently speaking with patient
--- NOTE | 2021-04-29 11:35 | MHC.CARE ---
CARE Team met with patient in ED bed 22; she came to the hospital last night reported hearing voices to harm self and did have many superficial cuts on both arms but denied suicidal ideation. Was alert, oriented, reported that she was feeling much better than yesterday. Patient said that she had an argument with a woman who is also staying at her mother's house. She missed only her evening medication but was given it here at the hospital. Patient stated that she is not suicidal or homicidal nor does she want to harm self or others. She created her own safety plan which is to have her mother watch her take medications, make an emergency appointment with her psychiatrist (not to make changes but to check in) and continue to ignore the new roommate. Called patient's mother, Romina, who said she has no concerns about her daughter coming home. Providers [place] [facility].
== END 2021-04-29 11:20 | disposition home or self-care (01) ==
PROVIDERS: Emergency Provider Emergency Medicine
DX: F41.9 Anxiety disorder, unspecified (principal); S51.812A Laceration without foreign body of left forearm, initial encounter; S51.811A Laceration without foreign body of right forearm, initial encounter; X78.8XXA Intentional self-harm by other sharp object, initial encounter; F31.9 Bipolar disorder, unspecified; I10 Essential (primary) hypertension; E66.01 Morbid (severe) obesity due to excess calories; F17.210 Nicotine dependence, cigarettes, uncomplicated; F12.90 Cannabis use, unspecified, uncomplicated; Z59.8 Other problems related to housing and economic circumstances; Z91.14 Patient's other noncompliance with medication regimen; Y93.9 Activity, unspecified; Y92.019 Unspecified place in single-family (private) house as the place of occurrence of the external cause; Y99.9 Unspecified external cause status
CPT/HCPCS: 36415; 80307; 81001; 81025; 94660; 99285

== ENCOUNTER 2021-05-03 00:39 | Emergency (ER) | payer MEDICAID, SELFPAY ==
[2021-05-03 02:28] VITALS: BP 139/84; PULSE 97; RESP 20; TEMP 36.2; O2SAT 97; BMI 62.1
[2021-05-03 03:56] LABS: Glucose Urine UA NEG (NEG); Leukocyte Esterase Urine NEG (NEG); Nitrite Urine NEG (NEG); Specific Gravity - Urine 1.025 (1.005-1.025); Urine Blood NEG (NEG); Urine Ketones NEG (NEG); Urine Protein NEG (NEG-TRACE)
[2021-05-03 03:59] LABS: Appearance Urine CLEAR; Color Urine YELLOW
--- NOTE | 2021-05-03 04:52 | ED.LOWEXIN ---
HPI - Extremity Injury (Lower) General Chief Complaint: Extremity Injury, Lower Stated Complaint: cyst leg Time Seen by Provider: 05/03/21 04:52 Source: patient Mode of arrival: EMS History of Present Illness HPI Narrative: 40-year-old female who presents with complaints regarding a right popliteal cyst and feeling upset that this may be contributing to the swelling in her right lower extremity. She states that she is having discomfort at the popliteal fossa but denies any associated fever, chills. Related Data Home Medications Medication Instructions Recorded Confirmed clonidine HCl 0.1 mg tablet 0.1 mg PO BID@1600,199902/11/21 03/07/21 quetiapine 300 mg tablet 300 mg PO BEDTIME 02/11/21 03/07/21 topiramate 100 mg tablet 100 mg PO TID 02/11/21 03/07/21 bupropion HCl 100 mg PO DAILY 03/07/21 03/07/21 gabapentin 100 mg PO TID 03/07/21 03/07/21 losartan 50 mg PO DAILY 03/07/21 03/07/21 perphenazine 4 mg PO BID 03/07/21 03/07/21 Previous Rx's Medication Instructions Recorded valacyclovir [Valtrex] 1,000 mg PO DAILY #30 tab 03/07/21 cephalexin 500 mg PO BID 7 Days #14 cap 03/27/21 cyclobenzaprine 10 mg PO TID PRN #14 tab 03/27/21 cyclobenzaprine 10 mg PO TID PRN #14 tab 03/27/21 cephalexin 500 mg PO QID 7 Days #28 tab 04/22/21 clotrimazole 1 appl TOPICAL BID PRN #45 g 04/22/21 prednisone 40 mg PO DAILY #8 tab 04/28/21 Allergies Allergy/AdvReac Type Severity Reaction Status Date / Time Penicillins [PENICILLINS] Allergy Severe HIVES Verified 05/03/21 02:33 aspirin [ASA] Allergy Intermediate HIVES Verified 05/03/21 02:33 azithromycin [AZITHROMYCIN] Allergy Intermediate ITCHING Verified 05/03/21 02:33 erythromycin base Allergy Intermediate HIVES Verified 05/03/21 02:33 [Erythromycin Base] lamotrigine [From Lamictal] Allergy Intermediate ITCHING Verified 05/03/21 02:33 levofloxacin [From LEVAQUIN] Allergy Intermediate HIVES Verified 05/03/21 02:33 oxycodone [From Percocet] Allergy Intermediate HIVES Verified 05/03/21 02:33 penicillin V Allergy Unknown Itching Verified 05/03/21 02:33 soap [SOAP] Allergy Unknown UNKNOWN Verified 05/03/21 02:33 RXN TO IVORY AND JERGEN'S SOAP doxycycline Allergy Itching Verified 05/03/21 02:33 Lamictal Allergy Unknown hives Uncoded 05/03/21 02:33 Oxycodone (5MG) Allergy Unknown Itching Uncoded 05/03/21 02:33 Penicillin Allergy Unknown hives Uncoded 05/03/21 02:33 Lactose AdvReac Unknown intolerance Uncoded 05/03/21 02:33 Review of Systems Review of Systems: Pertinent positives and negatives as stated in HPI 10 point review of systems is otherwise negative. PMFSH Past Medical History Source: nursing notes reviewed Medical History Abdominal pain Anxiety Asthma Bipolar 1 disorder Degenerative arthritis of knee, bilateral Hernia Hypertension Manic depression Morbid obesity Morbid obesity Schizophrenia Schizophrenia Surgical History History of hernia surgery Social History Social History Alcohol intake: current Alcohol intake frequency: 0-2 drinks per day Alcohol type: beer Patient Tobacco Use Status: Current everyday Tobacco user Substance Use Type: Marijuana Advance Directives: No Patient : No Physical Exam Vital Signs: Vital Signs: Last Vital Signs Temp 97.2 F 05/03/21 02:28 Pulse 97 05/03/21 02:28 Resp 20 05/03/21 02:28 BP 139/84 05/03/21 02:28 Pulse Ox 97 05/03/21 02:28 Body Mass Index 62.1 VITAL SIGNS: Reviewed. GENERAL: Well developed, well nourished, in no acute distress. HEAD: Normocephalic/atraumatic EYES: PERRLA, EOMI OROPHARYNX: no oral lesions noted, posterior pharynx clear LUNGS: Normal breath sounds. No adventitious sounds or accessory muscle use. SpO2<97> CARDIOVASCULAR: Regular rate and rhythm without noted murmurs ABDOMEN: Obese, Soft, non-tender, non-distended with bowel sounds. RIGHT LOWER EXTREMITY: Slightly large in comparison to the left, unable to palpate identified cyst SKIN: Inspection of the skin reveals no rashes NEUROLOGIC: Alert and oriented x 4. Course Course Course Narrative: 40-year-old female with history and clinical presentation consistent with right popliteal cyst that has been I had identified on venous duplex prior. Patient was reassured that she will be provided with a referral and at that time can discussed with the field technical support consultant options for removal as appropriate. MDM - Extremity Injury (Lower) Lab Data Labs: Lab Results 05/03/21 Range/Units 03:47 Urine Color YELLOW Urine Appearance CLEAR Urine pH 6.0 (5.0-8.0) Ur Specific [place] 1.025 (1.005-1.025) Urine Protein NEG (NEG-TRACE) MG/DL Urine Glucose (UA) NEG (NEG) MG/DL Urine Ketones NEG (NEG) MG/DL Urine Blood NEG (NEG) Urine Nitrite NEG (NEG) Ur Leukocyte Esterase NEG (NEG) Discharge Plan Discharge Clinical Impression: Daley cyst Patient Disposition: Home, Self-Care Instructions: Bakers Cyst (ED) Additional Instructions: 1. Resume all home medications as prescribed. 2. Please call the office of the orthopedic department for discussion regarding your right Daley cyst. Return to the ER for acute worsening of symptoms. Prescriptions: No Action gabapentin 100 mg Capsule 100 mg PO TID RF: 0 bupropion HCl 100 mg Tablet Sustained-Release 12 Hr 100 mg PO DAILY RF: 0 perphenazine 8 mg Tablet 4 mg PO BID RF: 0 losartan 50 mg Tablet 50 mg PO DAILY RF: 0 valacyclovir [Valtrex] 1 gram tablet 1,000 mg PO DAILY Qty: 30 RF: 0 cyclobenzaprine 10 mg tablet 10 mg PO TID PRN (Reason: muscle spasm) Qty: 14 RF: 0 cyclobenzaprine 10 mg tablet 10 mg PO TID PRN (Reason: muscle spasm) Qty: 14 RF: 0 cephalexin 500 mg capsule 500 mg PO BID 7 Days Qty: 14 RF: 0 prednisone 20 mg tablet 40 mg PO DAILY Qty: 8 RF: 0 cephalexin 500 mg tablet 500 mg PO QID 7 Days Qty: 28 RF: 0 clotrimazole 1 % cream 1 appl topical BID PRN (Reason: rash) Qty: 45 RF: 0 topiramate [Topamax] 100 mg tablet 100 mg PO TID RF: 0 quetiapine [Seroquel] 300 mg tablet 300 mg PO BEDTIME RF: 0 clonidine HCl 0.1 mg tablet 0.1 mg PO BID@1600,2000 RF: 0 Referrals: [facility] [Primary Care Provider] - 2 days Susan Maddox MD [Physician] - 2 days (Evaluation and treatment as indicated for right 5 x 3.3 cm daley cyst that patient states is causing discomfort and has concerns is leading to increased size of her calf which has previously been evaluated for the presence of DVT and found to be negative.)
== END 2021-05-03 05:12 | disposition home or self-care (01) ==
PROVIDERS: Emergency Provider Student in an Organized Health Care Education/Training Program
DX: M71.21 Synovial cyst of popliteal space [Baker], right knee (principal); I10 Essential (primary) hypertension; Z79.899 Other long term (current) drug therapy
CPT/HCPCS: 81003; 99283

== ENCOUNTER 2021-05-09 04:16 | Emergency (ER) | payer MEDICAID, SELFPAY ==
[2021-05-09 04:22] VITALS: BP 190/135; PULSE 88; RESP 20; TEMP 36.8; O2SAT 96; BMI 62.5
--- NOTE | 2021-05-09 04:29 | PC.NURSE ---
PATIENT CAME W/ C/O [facility] BEEN DOING COKE SINCE LAST WEEK PT WAS ON THE PHONE W/[facility] & PD STATING THAT SHE WAS HEARING VOICES AND WANTED TO KILL HERSELF. UPON ARRIVAL PATIENT WAS VERY UPSET WHEN EMS WAS TOLD SHE WAS WAS GOING TO THE POD WHICH WAS THE APPROPRIATE ASSIGNMENT FOR THIS PATIENT D/T THE STATED COMPLAINT. THIS RN WAS IN CHARGE AND WENT OVER TO SPEAK TO THE PATIENT. PT STATES WHY COULDN'T I GO IN A [facility] BED IT WAS CALMLY EXPLAINED TO PT THAT DUE TO THIS BEING A RELATED COMPLAINT THAT THE POD WOULD BE THE MOST APPROPRIATE PLACE. PT CONTINUES TO BE UPSET, THE PATIENT IS YELLING AT STAFF GIVE ME MY FUCKING PHONE BACK, YOU AINT KEEPING MY FUCKING PHONE. PT WAS ADVISED D/T THE POLICIES AND TO MAINTAIN THE SAFETY WITHIN THE POD WE WOULD NEED TO HAVE HER CHANGED OVER INTO HOSPITAL ATTIRE AND HER BELONGINGS WOULD BE PLACED IN A LOCKER.
[2021-05-09 05:02] VITALS: BP 176/107; PULSE 91; RESP 20; TEMP 36.7; O2SAT 96
[2021-05-09 05:22] LABS: Glucose Urine UA NEG (NEG); Leukocyte Esterase Urine NEG (NEG); Nitrite Urine NEG (NEG); Specific Gravity - Urine 1.025 (1.005-1.025); Urine Blood TRACE (NEG); Urine Ketones NEG (NEG); Urine Protein TRACE MG/DL (NEG-TRACE)
[2021-05-09 05:23] VITALS: BP 176/107; PULSE 91
[2021-05-09] MEDS: cloNIDine HCL 0.1 MG TABLET PO (05:23)
[2021-05-09 05:25] LABS: UPreg QC Valid YES; Urine Pregnancy NEGATIVE (NEGATIVE)
[2021-05-09 05:26] LABS: Appearance Urine HAZY; Color Urine YELLOW
[2021-05-09 05:29] LABS: RBC Urine 0-2 /HPF (0); WBC Urine 0-2 /HPF (0-4)
[2021-05-09 05:30] LABS: Bacteria Urine TRACE /LPF; Mucus Urine 1+ /LPF; Squamous Epithelial Cell Urine 2+ /LPF
[2021-05-09 05:35] LABS: COVID-19 Test Negative (Negative); IDNOW Serial# 9DD0AD1C
--- NOTE | 2021-05-09 05:39 | ED_ITS ---
HPI - Psych General Chief Complaint: Psychiatric Symptoms Stated Complaint: crisis Time Seen by Provider: 05/09/21 05:11 Source: patient Mode of arrival: EMS Limitations: no limitations History of Present Illness HPI Narrative: Patient history of bipolar disorder schizophrenia was under lot of stress had command auditory hallucination to cut herself called [facility] per EMS patient was passive-aggressive at this time patient states she made a wrong phone call she did not mean that she wanted to cut herself feels fine to go back , she said she was under stress and at this time she feels comfortable to go home and will follow-up with therapist Related Data Home Medications Medication Instructions Recorded Confirmed quetiapine 300 mg tablet 300 mg PO BEDTIME 02/11/21 05/09/21 bupropion HCl 100 mg PO DAILY 03/07/21 05/09/21 albuterol sulfate [ProAir HFA] 2 puff PO Q6H PRN 05/09/21 05/09/21 clonidine HCl 1 tab PO BID 05/09/21 05/09/21 gabapentin 2 cap PO BID 05/09/21 05/09/21 hydrochlorothiazide 1 tab PO DAILY 05/09/21 05/09/21 methocarbamol 2 tab PO BEDTIME PRN 05/09/21 05/09/21 topiramate 1 tab PO TID 05/09/21 05/09/21 valacyclovir 1 tab PO QAM 05/09/21 05/09/21 Allergies Allergy/AdvReac Type Severity Reaction Status Date / Time Penicillins [PENICILLINS] Allergy Severe HIVES Verified 05/03/21 02:33 aspirin [ASA] Allergy Intermediate HIVES Verified 05/03/21 02:33 azithromycin [AZITHROMYCIN] Allergy Intermediate ITCHING Verified 05/03/21 02:33 erythromycin base Allergy Intermediate HIVES Verified 05/03/21 02:33 [Erythromycin Base] lamotrigine [From Lamictal] Allergy Intermediate ITCHING Verified 05/03/21 02:33 levofloxacin [From LEVAQUIN] Allergy Intermediate HIVES Verified 05/03/21 02:33 oxycodone [From Percocet] Allergy Intermediate HIVES Verified 05/03/21 02:33 penicillin V Allergy Unknown Itching Verified 05/03/21 02:33 soap [SOAP] Allergy Unknown UNKNOWN Verified 05/03/21 02:33 RXN TO IVORY AND JERGEN'S SOAP doxycycline Allergy Itching Verified 05/03/21 02:33 Lamictal Allergy Unknown hives Uncoded 05/03/21 02:33 Oxycodone (5MG) Allergy Unknown Itching Uncoded 05/03/21 02:33 Penicillin Allergy Unknown hives Uncoded 05/03/21 02:33 Lactose AdvReac Unknown intolerance Uncoded 05/03/21 02:33 Review of Systems Review of Systems: Constitutional : No Fever, No Chills ENT/Mouth : No Ear Pain, No Nasal Congestion, No sore throat Eyes: No Eye Pain, No Swelling, No Redness Cardiovascular : No Chest Pain, No SOB Respiratory : No Cough, No Sputum, No Dyspnea Gastrointestinal : No Nausea, No Vomiting, No Diarrhea, No Hematochezia, No Melena Genitourinary : No Dysuria, No Urinary Frequency, No Hematuria Musculoskeletal : No Myalgias Skin : No Skin Lesions, No rash Neuro : No Weakness, No Numbness, No Paresthesias, No Dizziness, No Headache Psych : positive Anxiety, positive Depression, positive SI Heme/Lymph: No Lymphadenopathy Endocrine : No Polyuria, No Polydipsia PMFSH Past Medical History Medical History Abdominal pain Anxiety Asthma Bipolar 1 disorder Degenerative arthritis of knee, bilateral Hernia Hypertension Manic depression Morbid obesity Morbid obesity Schizophrenia Schizophrenia Surgical History History of hernia surgery Social History Social History Alcohol intake: current Alcohol intake frequency: 0-2 drinks per day Alcohol type: beer Patient Tobacco Use Status: Current everyday Tobacco user Substance Use Type: Marijuana Advance Directives: No Advance Directives Information Provided: Yes Patient : No Physical Exam Vital Signs: Vital Signs: Last Vital Signs Temp 98.0 F 05/09/21 05:02 Pulse 91 05/09/21 05:23 Resp 20 05/09/21 05:02 BP 176/107 H 05/09/21 05:23 Pulse Ox 96 05/09/21 05:02 Body Mass Index 62.5 Appearance: Alert. Oriented X3. No acute distress. Eyes: PERRLA, No Nystagmus ENT: Pharynx normal. Oral Mucosa moist Neck: Normal inspection. Neck supple. CVS: Normal heart rate and rhythm. Pulses normal. Respiratory: No respiratory distress. Equal air entry bilateral, no wheezing/rales/rhonchi Abdomen: Soft and nontender. Bowel sounds are present, no mass palpable, no CVA tenderness Skin: Skin warm and dry. Normal skin color. Normal skin turgor. Extremities: No lower extremity edema. No calf tenderness Neuro: Oriented X 3. No motor deficit. No sensory deficit.No cerebellar signs , cranial nerves II-XII intact Psych: Mood stable, no suicidal ideation no homicidal ideation judgment fair MDM - Psych MDM Narrative Medical decision making narrative: Patient with bipolar disorder/schizophrenia been here multiple times for anxiety depression and suicidal ideation . At this time patient denies any suicidal ideation feeling feels safe to go home crisis called and they will evaluate the patient in community Lab Data Labs: Lab Results 05/09/21 05/09/21 05/09/21 Range/Units 05:13 05:13 05:13 Urine Color YELLOW Urine Appearance HAZY Urine pH 6.0 (5.0-8.0) Ur Specific [place] 1.025 (1.005-1.025) Urine Protein TRACE (NEG-TRACE) MG/DL Urine Glucose (UA) NEG (NEG) MG/DL Urine Ketones NEG (NEG) MG/DL Urine Blood TRACE (NEG) Urine Nitrite NEG (NEG) Ur Leukocyte Esterase NEG (NEG) Urine RBC 0-2 (0) /HPF Urine WBC 0-2 (0-4) /HPF Ur Squamous Epith Cells 2+ /LPF Urine Bacteria TRACE /LPF Urine Mucus 1+ /LPF Urine Test NEGATIVE (NEGATIVE) COVID-19 (HAZEL) Negative (Negative) COVID-19 Clin Com See Note Discharge Plan Discharge Prescriptions: No Action bupropion HCl 100 mg Tablet Sustained-Release 12 Hr 100 mg PO DAILY RF: 0 valacyclovir 1 gram tablet 1 tab PO QAM RF: 0 topiramate 100 mg tablet 1 tab PO TID RF: 0 methocarbamol 500 mg tablet 2 tab PO BEDTIME PRN (Reason: muscle spasm) RF: 0 clonidine HCl 0.1 mg tablet 1 tab PO BID RF: 0 gabapentin 400 mg capsule 2 cap PO BID RF: 0 hydrochlorothiazide 25 mg tablet 1 tab PO DAILY RF: 0 albuterol sulfate [ProAir HFA] 90 mcg/actuation HFA aerosol inhaler 2 puff PO Q6H PRN (Reason: wheezing) RF: 0 quetiapine [Seroquel] 300 mg tablet 300 mg PO BEDTIME RF: 0
[2021-05-09 05:46] LABS: Amphetamine Screen Urine Not Detected (Not Detect); Barbiturates, Urine Not Detected (Not Detect); Benzodiazepines Screen Urine Not Detected (Not Detect); Cannabinoid Screen Urine Not Detected (Not Detect); Cocaine Screen Urine POSITIVE (Not Detect); Opiate Screen Urine Not Detected (Not Detect); Phencyclidine Screen Urine Not Detected (Not Detect)
== END 2021-05-09 06:38 | disposition home or self-care (01) ==
PROVIDERS: Emergency Provider Internal Medicine
DX: F31.9 Bipolar disorder, unspecified (principal); F41.9 Anxiety disorder, unspecified; R44.0 Auditory hallucinations; F17.210 Nicotine dependence, cigarettes, uncomplicated; F12.90 Cannabis use, unspecified, uncomplicated; Z20.822 Contact with and (suspected) exposure to COVID-19
CPT/HCPCS: 36415; 80307; 81001; 81025; 87635; 99283

== ENCOUNTER 2021-08-22 13:06 | Emergency (ER) | payer MEDICAID, SELFPAY ==
--- NOTE | ~2021-08-22 | XR_ITS ---
EXAMINATION: X-RAY RIGHT HAND AND WRIST CLINICAL INFORMATION: Fall, pain. COMPARISON: No similar priors. TECHNIQUE: 4 views of the right hand and wrist were obtained. FINDINGS: No evidence of acute fractures or malalignment. Carpal rows are maintained. The scapholunate interval is within normal limits. Soft tissue edema. No radiopaque foreign bodies. XR/XR hand wrist RT IMPRESSION: No acute fractures or malalignment. If pain persists, consider a short-term interval imaging.
--- NOTE | ~2021-08-22 | XR_ITS ---
EXAMINATION: XR ELBOW, RIGHT CLINICAL INFORMATION: Fall, elbow pain. COMPARISON: No similar priors. TECHNIQUE: AP, lateral, and oblique views of the right elbow. FINDINGS: No acute fractures or malalignment. Joint spaces are maintained. No joint effusion. There is diffuse soft tissue edema. No unexpected radiopaque foreign bodies. XR/XR elbow RT min 3V IMPRESSION: No acute fractures or malalignment.
--- NOTE | ~2021-08-22 | XR_ITS ---
EXAMINATION: XR SHOULDER, RIGHT CLINICAL INFORMATION: Shoulder pain. COMPARISON: No similar priors are available for comparison. TECHNIQUE: AP external rotation, Grashey, scapular Y, and axillary views of the right shoulder. FINDINGS: No evidence of acute fractures or malalignment. The humeral head is well-seated in the glenoid. The acromioclavicular joint and coracoid processes appear intact. No evidence of acutely displaced rib fractures in the visualized right-sided ribs. There are prominent calcific bodies adjacent to the greater trochanter in the area of the insertion site of the supraspinatus tendon. XR/XR shoulder RT min 2V IMPRESSION: No acute fractures or malalignment. Calcific tendinosis of the supraspinatus tendon.
--- NOTE | ~2021-08-22 | XR_ITS ---
EXAMINATION: XR KNEE, LEFT CLINICAL INFORMATION: Fall, knee pain. COMPARISON: Radiograph of the left lower extremity dated from 07/18/2020. TECHNIQUE: Four views of the left knee. FINDINGS: No evidence of acute fractures or malalignment. There are moderate tricompartmental degenerative changes manifested by joint space narrowing, subchondral sclerosis and prominent osteophytes, these changes are most notable in the medial and patellofemoral compartments. Small joint effusion. XR/XR knee LT 4V IMPRESSION: No acute fractures or malalignment. Moderate degenerative osteoarthritis. Small joint effusion.
[2021-08-22 13:11] VITALS: BP 139/90; PULSE 90; O2SAT 93
[2021-08-22 13:22] VITALS: BP 153/66; PULSE 89; RESP 18; TEMP 36.4; O2SAT 96; BMI 63.4
--- NOTE | 2021-08-22 13:23 | ED.LOWEXIN ---
HPI - Extremity Injury (Lower) General Chief Complaint: Extremity Injury, Lower <Yordy Morley Last Filed: 08/22/21 16:13> Stated Complaint: LEFT LEG PAIN S/P FALL YESTERDAY <Yordy Morley - Filed: 08/22/21 16:13> Time Seen by Provider: 08/22/21 13:23 <Yordy Morley Last Filed: 08/22/21 16:13> Source: patient and EMS <Yordy Morley Last Filed: 08/22/21 16:13> Mode of arrival: EMS <Yordy Morley Filed: 08/22/21 16:13> Limitations: no limitations <Yordy Morley Filed: 08/22/21 16:13> History of Present Illness HPI Narrative: 40 year old female with extensive history of presenting to the emergency department with past medical history of morbid obesity, hypertension, hyperlipidemia, bipolar 1, anxiety, and schizophrenia presents to the emergency department with complaints of left knee pain and swelling to the right arm,shoulder, wrist and forearm s/p fall at home yesterday. She states that she tripped and fell, falling forward, she tried to support herself with her right arm, she states when she fell she hit her head, and hit her head a little bit I think .. She states that she did not have dizziness, chest pain or shortness of breath preceding the fall. She states that this was strictly a trip and fall, and she was fine before she fell. She reports that she cannot bear weight to her left leg. She denies headache, vision changes, LOC, neck pain, shortness of breath, chest pain, nausea, vomiting, fevers, chills, abdominal pain. She is not on anticoagulation. <Yordy Morley Last Filed: 08/22/21 16:13> MD complaint: knee injury (left ), fall and other (Left arm, wrist, shouder, elbow) <Yordy Morley Last Filed: 08/22/21 16:13> Onset (ago): day(s) (1) <Yordy Morley Filed: 08/22/21 16:13> Type of Injury: other (fall, forward) <Yordy Morley Last Filed: 08/22/21 16:13> Place: home <Yordy Morley Filed: 08/22/21 16:13> Severity: severe <Yordy Morley - Last Filed: 08/22/21 16:13> Severity scale (1-10): 10 <Yordy Vasquez Last Filed: 08/22/21 16:13> Relieving factors: nothing <Yordy Morley - Last Filed: 08/22/21 16:13> Exacerbating factors: weight bearing and movement <Yordy Morley - Last Filed: 08/22/21 16:13> Context: fall <Yordy Morley - Last Filed: 08/22/21 16:13> Other symptoms: none <Yordy Morley - Last Filed: 08/22/21 16:13> Related Data Home Medications: Home Medications Medication Instructions Recorded Confirmed quetiapine 300 mg tablet (Seroquel) 300 mg PO BEDTIME 02/11/21 05/09/21 bupropion HCl 100 mg tablet,12 hr 100 mg PO DAILY 03/07/21 05/09/21 sustained-release albuterol sulfate 90 mcg/actuation 2 puff PO Q6H PRN 05/09/21 05/09/21 aerosol inhaler (ProAir HFA) clonidine HCl 0.1 mg tablet 1 tab PO BID 05/09/21 05/09/21 gabapentin 400 mg capsule 2 cap PO BID 05/09/21 05/09/21 hydrochlorothiazide 25 mg tablet 1 tab PO DAILY 05/09/21 05/09/21 methocarbamol 500 mg tablet 2 tab PO BEDTIME PRN 05/09/21 05/09/21 topiramate 100 mg tablet 1 tab PO TID 05/09/21 05/09/21 valacyclovir 1 gram tablet 1 tab PO QAM 05/09/21 05/09/21 Previous Rx's Medication Instructions Recorded cane #1 ea 08/22/21 <Yordy Morley - Last Filed: 08/22/21 16:13> Allergies/Adverse Reactions: Allergies Allergy/AdvReac Type Severity Reaction Status Date / Time Penicillins [PENICILLINS] Allergy Severe HIVES Verified 08/22/21 13:24 aspirin [ASA] Allergy Intermediate HIVES Verified 08/22/21 13:24 azithromycin [AZITHROMYCIN] Allergy Intermediate ITCHING Verified 08/22/21 13:24 erythromycin base Allergy Intermediate HIVES Verified 08/22/21 13:24 [Erythromycin Base] lamotrigine [From Lamictal] Allergy Intermediate ITCHING Verified 08/22/21 13:24 levofloxacin [From LEVAQUIN] Allergy Intermediate HIVES Verified 08/22/21 13:24 oxycodone [From Percocet] Allergy Intermediate HIVES Verified 08/22/21 13:24 penicillin V Allergy Unknown Itching Verified 08/22/21 13:24 soap [SOAP] Allergy Unknown UNKNOWN Verified 08/22/21 13:24 RXN TO IVORY AND JERGEN'S SOAP doxycycline Allergy Itching Verified 08/22/21 13:24 Lamictal Allergy Unknown hives Uncoded 05/03/21 02:33 Oxycodone (5MG) Allergy Unknown Itching Uncoded 05/03/21 02:33 Penicillin Allergy Unknown hives Uncoded 05/03/21 02:33 Lactose AdvReac Unknown intolerance Uncoded 05/03/21 02:33 <Yordy Morley - Last Filed: 08/22/21 16:13> Review of Systems Review of Systems: Constitutional : No Weight loss, No Fever, No Chills, No Night Sweats, No Fatigue, No Malaise ENT/Mouth : No Hearing loss, No Ear Pain, No Nasal Congestion, No Sinus Pain, No Hoarseness, No sore throat, No Rhinorrhea, No Swallowing Difficulty Eyes: No Eye Pain, No Swelling, No Redness, No Foreign Body, No Discharge, No Vision Changes Cardiovascular : No Chest Pain, No SOB, No Dyspnea on Exertion, No Orthopnea, No Edema, No Palpitations Respiratory : No Cough, No Sputum, No Wheezing, No Smoke Exposure, No Dyspnea Gastrointestinal : No Nausea, No Vomiting, No Diarrhea, No Constipation, No abdominal Pain, No Hematochezia, No Melena Genitourinary : no irregular bleeding, No Dysuria, No Urinary Frequency, No Hematuria, No Urinary Incontinence, No Urgency, No Flank Pain, No Urinary Flow Changes, No Hesitancy Musculoskeletal : + joint pain, No Myalgias, + Joint SwellingSkin : No Skin Lesions, No rash Neuro : No Weakness, No Numbness, No Paresthesias, No Loss of Consciousness, No Dizziness, No Headache <Yordy Morley - Last Filed: 08/22/21 16:13> [facility] Past Medical History Attestation statement: The following information was validated with the patient. <Yordy Morley - Last Filed: 08/22/21 16:13> Source: old records reviewed and nursing notes reviewed <Yordy Morley - Last Filed: 08/22/21 16:13> Medical History: Medical History Abdominal pain Anxiety Asthma Bipolar 1 disorder Degenerative arthritis of knee, bilateral Hernia Hypertension Manic depression Morbid obesity Morbid obesity Schizophrenia Schizophrenia <Yordy Peyman - Last Filed: 08/22/21 16:13> Surgical History: Surgical History History of hernia surgery <Yordy Morley - Last Filed: 08/22/21 16:13> Social History Social History: Social History Alcohol intake: current Alcohol intake frequency: 0-2 drinks per day Alcohol type: beer Patient Tobacco Use Status: Current everyday Tobacco user Substance Use Type: Marijuana Advance Directives: No Advance Directives Information Provided: No Patient : No <Yordy Morley - Last Filed: 08/22/21 16:13> Physical Exam Vital Signs: Vital Signs: Last Vital Signs Temp 97.5 F 08/22/21 13:22 Pulse 89 08/22/21 13:22 Resp 18 08/22/21 13:22 BP 153/66 H 08/22/21 13:22 Pulse Ox 96 08/22/21 13:22 Body Mass Index 63.4 vital signs have been reviewed as normal and appeared to be correct. Blood pressure normal. Heart rate normal. Respiration rate normal. Temperature normal. Oxygen saturation normal. <Yordy Morley - Last Filed: 08/22/21 16:13> Vital Signs: Last Vital Signs Temp 97.5 F 08/22/21 13:22 Pulse 89 08/22/21 13:22 Resp 18 08/22/21 13:22 BP 153/66 H 08/22/21 13:22 Pulse Ox 96 08/22/21 13:22 Body Mass Index 63.4 <SITA Renteria - Last Filed: 08/22/21 17:35> Appearance: Alert. Oriented X3. No acute distress. Head: Normal external exam. Normocephalic. Atraumatic. No stepoffs or deformiteis. No Poe signs noted. No raccoon eyes noted Eyes: PERRLA. EOMI. Conjunctiva and sclera normal. Eyelids normal. ENT: Pharynx normal. Uvula midline. Moist mucous membranes. No trismus noted. No drooling noted. No muffled voice noted. Neck: Soft full range of motion, no JVD No C spine tenderness. No Midline tenderness CVS: Heart regular rate and rhythm no murmurs and rubs Respiratory: Breath sounds are clear to auscultation bilaterally. No accessory muscle use noted. Abdomen: Soft nontender no rebound or guarding positive bowel sounds Back: No CVA tenderness. Full range of motion noted. Skin: Skin warm and dry. Normal skin color. Normal skin turgor. No rashes/lesions/lacerations noted. Extremities: No lower extremity edema. Extremities exhibit normal range of motion however, pain with ROM of left knee, right wrist fingers, elbow and shoulder. Extremities nontender. No overlying skin changes. 2+ pulses to upper and lower extremities equal and bilateral. Swelling is noted to right hand, wrist and elbow. No evident ligamentous injury. Neuro: Oriented X 3. No motor deficit. No sensory deficit. Reflexes normal. <Yordy Morley - Last Filed: 08/22/21 16:13> Course Reevaluation(s) Reevaluation #1: xrays no acute fracture. BHASKAR bandage will be applied to left knee. Small effusion <Yordy Morley - Last Filed: 08/22/21 16:13> Time: 15:55 <Yordy Morley [facility] Filed: 08/22/21 16:13> Reevaluation #2: To note patients nurse/telesales representative called to state that he was worried about possible stroke for Pinky. He called about 30 minutes after she was discharged. To note, patient did not report weakness, and there is no focal neuro deficits on exam. There is no weakness, and patient ambulated with a steady gait. Patient's chief complaint when she came in earlier today was a fall, she reassured multiple people that it was just a mechanical fall. There is no preceding symptoms. was advised to call an ambulance for Pinky, and have her return to the emergency department if she was acting strange, or he was concerned for stroke. It was made clear that stroke is a medical emergency, which requires immediate medical intervention, and he was advised to have Pinky return to the emergency department. <SITA Renteria - Last Filed: 08/22/21 17:35> Time: 16:35 <SITA Renteria - Last Filed: 08/22/21 17:35> MDM - Extremity Injury (Lower) MDM Narrative Medical decision making narrative: 40 yo female pmhx significant for morbid obesity, hypertension, hyperlipidemia, bipolar 1, anxiety, and schizophrenia present to the ED with complaints of left knee pain, and right arm pain X2 days status post trip and fall yesterday. Patient states she hit her head a little bit , she denies headaches, vision changes with, altered mentation. Patient states she decided to call the ambulance today because she could not bear weight on her left leg. She is not on blood thinners. Upon physical examination there is full range of motion to the left knee, right wrist, fingers, elbow, and shoulder, however painful. There is edema noted to the right wrist, hand, elbow. Left arm is normal. Bilateral upper and lower extremities 2+ pulses equal and bilateral. Normal capillary refill less than 2 seconds. Normal hand train brakeman strength. No focal neuro deficits. Pupils equal round and reactive to light bilaterally extraocular movements intact free of pain. Head is normocephalic, atraumatic, free of step-offs in deformities. Patient states she is not able to ambulate at this time due to pain. Based off of patient history, and physical examination, there is no need for a CT of the head at this time, there is no C-spine tenderness, no focal neuro deficits, no weakness, patient is not on blood thinners. Very low probability for ICH. Plain films of the left knee and right arm have been orderd. Patients pain is currently a 5/10 and isnt requiring pain medication. <Yordy Morley - Last Filed: 08/22/21 16:13> Imaging Data X-RAY RIGHT ELBOW: Attestation: I personally reviewed and interpreted this imaging study as follows: <Yordy Morley - Last Filed: 08/22/21 16:13> Radiologist's impression: XR/XR elbow RT min 3V IMPRESSION: No acute fractures or malalignment. <Yordy Morley - Last Filed: 08/22/21 16:13> X-RAY RIGHT HAND: Attestation: I personally reviewed and interpreted this imaging study as follows: <Yordy Morley - Last Filed: 08/22/21 16:13> Radiologist's impression: XR/XR hand wrist RT IMPRESSION: No acute fractures or malalignment. If pain persists, consider a short-term interval imaging.? <Yordy Morley - Last Filed: 08/22/21 16:13> X-RAY RIGHT SHOULDER: Attestation: I personally reviewed and interpreted this imaging study as follows: <Yordy Morley Last Filed: 08/22/21 16:13> Radiologist's impression: XR/XR shoulder RT min 2V IMPRESSION: No acute fractures or malalignment. Calcific tendinosis of the supraspinatus tendon. <Yordy Morley Last Filed: 08/22/21 16:13> X-RAY LEFT KNEE: Attestation: I personally reviewed and interpreted this imaging study as follows: <Yordy Morley Last Filed: 08/22/21 16:13> Radiologist's impression: XR/XR knee LT 4V IMPRESSION: No acute fractures or malalignment. ? Moderate degenerative osteoarthritis. ? Small joint effusion. <Yordy Morley Filed: 08/22/21 16:13> Discharge Plan Discharge Clinical Impression: Knee sprain, Shoulder sprain, Elbow sprain, Sprain of wrist Fall Qualifiers: Encounter type: initial encounter Qualified Code(s): W19.XXXA - Unspecified fall, initial encounter <Yordy Morley - Last Filed: 08/22/21 16:13> Patient Disposition: Home, Self-Care <Yordy Morley Last Filed: 08/22/21 16:13> Instructions: Knee Sprain (ED), Elbow Sprain (ED), Shoulder Sprain (ED), Fall Prevention (ED), Wrist Sprain (ED) <Yordy Morley Last Filed: 08/22/21 16:13> Additional Instructions: Follow-up with your primary care provider Return to the emergency department with new or worsening symptoms <Yordy Morley Last Filed: 08/22/21 16:13> Prescriptions: New (DME) cane Device See Rx Instructions .Route Qty: 1 RF: 0 No Action bupropion HCl 100 mg Tablet Sustained-Release 12 Hr 100 mg PO DAILY RF: 0 valacyclovir 1 gram tablet 1 tab PO QAM RF: 0 topiramate 100 mg tablet 1 tab PO TID RF: 0 methocarbamol 500 mg tablet 2 tab PO BEDTIME PRN (Reason: muscle spasm) RF: 0 clonidine HCl 0.1 mg tablet 1 tab PO BID RF: 0 gabapentin 400 mg capsule 2 cap PO BID RF: 0 hydrochlorothiazide 25 mg tablet 1 tab PO DAILY RF: 0 albuterol sulfate [ProAir HFA] 90 mcg/actuation HFA aerosol inhaler 2 puff PO Q6H PRN (Reason: wheezing) RF: 0 quetiapine [Seroquel] 300 mg tablet 300 mg PO BEDTIME RF: 0 <Yordy Morley - Last Filed: 08/22/21 16:13> Interventions: ED Discharge Assessment Last Done: 08/22/21 16:05 <Yordy Morley - Last Filed: 08/22/21 16:13> Discharge Date/Time: 08/22/21 16:13 <Yordy Morley - Last Filed: 08/22/21 16:13>
--- NOTE | 2021-08-22 15:48 | PC.NURSE ---
PT REQUESTED FOOD AND GINGERALE. SANDWICH AND GINGERALE PROVIDED TO PATIENT.
[2021-08-22] MEDS: Acetaminophen 325 MG TABLET 650 MG PO (16:01)
== END 2021-08-22 16:13 | disposition home or self-care (01) ==
PROVIDERS: Emergency Provider Emergency Medicine; PCP General Practice
DX: S83.92XA Sprain of unspecified site of left knee, initial encounter (principal); S53.402A Unspecified sprain of left elbow, initial encounter; S63.502A Unspecified sprain of left wrist, initial encounter; M25.512 Pain in left shoulder; W01.10XA Fall on same level from slipping, tripping and stumbling with subsequent striking against unspecified object, initial encounter; Y93.9 Activity, unspecified; Y92.9 Unspecified place or not applicable; Y99.9 Unspecified external cause status; F17.200 Nicotine dependence, unspecified, uncomplicated; Z71.6 Tobacco abuse counseling; Z79.899 Other long term (current) drug therapy
CPT/HCPCS: 73030; 73080; 73110; 73130; 73564; 99283; 99284